=== PATIENT | female | born 1950 | race Caucasian/White ===

== ENCOUNTER 2017-09-20 06:48 | Day surgery (SDC) | payer MEDICARE, MEDICAID, SELFPAY ==
[2017-09-20 07:20] VITALS: BP 163/90; PULSE 76; RESP 12; TEMP 36.6; O2SAT 99; BMI 20.7
[2017-09-20] MEDS: PROPARACAINE 0.5% OPHTH SOL 2 DROPS EYE-OP (07:20)
--- NOTE | 2017-09-20 07:51 | SUR.OPER ---
Supine on eye stretcher, head on extension cradle secured with tape. Arms tucked at sides with blanket. Pillow under knees.
[2017-09-20] MEDS: TETRACAINE 0.5% OPHTH DROPS 15 ML 2 DROPS EYE-RIGHT (08:09)
[2017-09-20] MEDS: CHONDROIDTIN/SOD HYALURONATE 1.05 ML SYRINGE INTRAOCULA (08:09)
[2017-09-20] MEDS: MOXIFLOXACIN OPHTH DROPS 3 ML BOTTLE 2 DROPS INJ (08:09)
[2017-09-20] MEDS: TRIAMCINOLONE 50 MG/5 ML VIAL INJ (08:10)
[2017-09-20] MEDS: CATARACT EYE COMPOUND (10 DROPS/SYRINGE) 3 DROPS EYE-OP (08:13)
[2017-09-20] MEDS: BALANCED SALT IRRIG SOLN NO.2 500 ML, EPINEPHrine 1 MG IRR (08:15)
[2017-09-20] MEDS: LIDOCAINE JELLY 2% 5 ML 1 APPLIC TOP (08:16)
--- NOTE | 2017-09-20 08:18 | PM.PREOP ---
Pre-operative Note Interval Note Pre-op Check: History & Physical Reviewed by Physician
--- NOTE | 2017-09-20 08:19 | P.OP_ITS ---
Operative Date/Time/Diagnoses - Pre-op diagnosis: Cataract Right eye Post-op diagnosis: same Procedure & Clinicians Procedure: Cataract Surgery Same procedure as scheduled: Yes Surgeon: Cody Perez Anesthesia Type: MAC +/- and Sedation Operative Notes Procedure in detail: Patient brought to the operating suite. Tetracaine drops placed in the right eye. Patient was prepped and draped in sterile manner. Wire lid speculum was placed in the eye. Betadine drops were placed on the eye. This was irrigated. Lidocaine jelly was placed on the eye. A paracentesis port was created with a side-port blade. 0.1 mL 1% preservative free lidocaine was injected into the anterior chamber. The anterior chamber was deepened with viscoelastic. 2.6 mm keratome was used to create a temporal clear corneal incision. Cystotome and Utrata forceps were used to create continuous tear capsulorrhexis. Balanced salt solution was used to hydro dissect the nucleus. The phacoemulsification handpiece was inserted and the nucleus was removed using the stop and chop technique. The irrigation aspiration handpiece was inserted and the remaining cortex was removed. Anterior chamber was deepened with viscoelastic. An Dove ZCB00 intraocular lens with a power of 23.0 was injected into the capsular bag. Irrigation aspiration handpiece was inserted and the remaining viscoelastic was removed. Incision was hydrated with balanced salt solution and found to be leak free with pressure with Weck- Ayla sponges. 0.1 mL Vigamox injected anterior chamber. 0.3 mL Kenalog 10 mg was injected subconjunctivally. Lid speculum was removed. The patient left the operating room in excellent condition. Complications: none Condition: stable Disposition: same day surgery
[2017-09-20 08:33] VITALS: BP 129/77; PULSE 73; RESP 16; TEMP 36.9; O2SAT 98
--- NOTE | 2017-09-20 08:33 | SUR.PHASEII ---
D/C INSTRUCTIONS REVIEWED WITH VERBALIZED UNDERSTANDING, PT TOLERATING COFFEE.
== END 2017-09-20 08:52 | disposition home or self-care (01) ==
PROVIDERS: PCP Family Medicine; Visit Provider Ophthalmology
DX: H25.11 Age-related nuclear cataract, right eye (principal); I10 Essential (primary) hypertension; R56.9 Unspecified convulsions
CPT/HCPCS: J0171; J2250; J3010; J3301

== ENCOUNTER → 2018-02-04 08:45 | Outpatient (CLI) | payer MEDICARE, MEDICAID, SELFPAY ==
--- NOTE | 2018-02-04 | DI.MRI.S_ITS ---
PROCEDURE: MR THORACIC SPINE WO CON INDICATIONS: RIGHT SIDED THORACIC PAIN TECHNIQUE: Noncontrast sagittal T1 spine echo and T2 fast spin echo, sagittal STIR, axial T1 and T2 fast spin echo through the thoracic spine. COMPARISON: [facility], MR, T-SPINE WITHOUT CONTRAST, 04/05/2016, 10:34. [facility], CR, XR THORACIC SPINE 3 VIEWS, 01/31/2018, 7:41. [facility], CR, XR CERVICAL SPINE WITH FLEXION EXTENSION, 01/31/2018, 7:41. [facility], MR, T-SPINE WITHOUT CONTRAST, 02/23/2017, 8:28. FINDINGS: Image quality: Excellent. Alignment and Curvature: There is normal bony alignment. Bone Marrow: Marrow is of abnormal elevated overall signal on STIR imaging as has been previously the case. This accentuates visualization of the fatty marrow changes of adjacent degenerative disc disease through the middle and lower thirds of the thoracic spine. No acute vertebral body compression fractures. Spinal Cord: Visualized spinal cord is normal in size and signal. Paraspinous Soft Tissues: No paravertebral masses. Miscellaneous: On axial images, central canal and foramina appear widely patent at all scanned levels. IMPRESSION: No spinal or foraminal stenosis found. Diffuse increased cellularity throughout the vertebral body marrow space best appreciated on the STIR imaging pulse sequence. This can be seen in myelodysplastic syndromes and marrow neoplastic infiltrations. Fat signal along areas of degenerative disc disease previously present is accentuated by the adjacent cellularity through the marrow space best seen through the middle and lower thirds of the thoracic spine. Overall, no overweaver several prior thoracic spine examinations. Dictated by: Adan Raymond M.D. on 02/07/2018 at 8:10 Approved by: Adan Raymond M.D. on 02/07/2018 at 8:14
== END ==
PROVIDERS: PCP Family Medicine; Visit Provider Orthopaedic Surgery
DX: M54.9 Dorsalgia, unspecified (principal)
CPT/HCPCS: 72146

== ENCOUNTER 2018-02-09 11:10 | Emergency (ER) | payer MEDICARE, MEDICAID, SELFPAY ==
--- NOTE | 2018-02-09 11:13 | ED_ITS ---
HPI - Back Pain/Injury General Chief Complaint: Back Pain/Injury Stated Complaint: BACK PAIN Time Seen by Provider: 02/09/18 11:12 Source: patient Mode of arrival: ambulatory Limitations: no limitations History of Present Illness HPI Narrative: 67-year-old female here for evaluation of right sided midback pain. Patient states that has been going on for several months now. She EKG early takes anti-inflammatories. She has been evaluated by Orthopedics who stated that she needed to find a primary care doctor. She has not done that to this point. She does have the orthopedic no with her today that does state that the patient could follow up in 3 months. Patient also has a note today from a provider who ordered a thoracic spine MRI for her to see oncology. I did evaluate the results of this MRI which overall his unchanged from an MRI 1 year ago however does have some concerning lesions on it. I soon this is the reason that she has been referred to see oncology. She has an appoint with Oncology next Tuesday. Patient has no new symptoms today Related Data Home Medications Medication Instructions Recorded Confirmed phenytoin sodium extended See Label Instructions .ROUTE 05/20/17 02/09/18 [Dilantin Extended] .COMPLEX #0 atenolol 50 mg PO DAILY 08/30/17 02/09/18 acetaminophen [Tylenol] 650 mg PO Q4H PRN 02/09/18 02/09/18 aspirin 81 mg PO DAILY 02/09/18 02/09/18 Previous Rx's Medication Instructions Recorded meloxicam [Mobic] 15 mg PO DAILY #30 tab 02/09/18 Allergies Allergy/AdvReac Type Severity Reaction Status Date / Time erythromycin base Allergy Unknown Gastrointestinal Verified 02/09/18 11:25 [ERYTHROMYCIN BASE] Upset Review of Systems Constitutional Denies fever(s) Cardiovascular Denies chest pain and Denies dyspnea Respiratory Denies dyspnea Gastrointestinal Gastrointestinal: Denies abdominal pain, Denies nausea and Denies vomiting Genitourinary Denies dysuria Musculoskeletal Reports back pain, Denies myalgias, Denies arthralgias and Denies tingling Integumentary/Breasts Denies lesions and Denies rash Neurologic Denies radicular pain, Denies tingling and Denies paresthesias PFSH Medical History Chronic back pain (Acute) Surgical History No pertinent past surgical history (Acute) Social History household members: significant other Exam Initial Vital Signs Initial Vital Signs: Vital Signs Temperature 98.1 F 02/09/18 11:25 Pulse Rate 75 02/09/18 11:25 Respiratory Rate 15 02/09/18 11:25 Blood Pressure 111/67 02/09/18 11:25 Pulse Oximetry 100 02/09/18 11:25 Const General: cooperative, healthy appearing, comfortable, well developed, well groomed and No acute distress Orientation: alert and oriented x3 HENMT Head: normal to inspection and normocephalic Resp Effort & Inspection: normal respiratory effort Auscultation: clear to auscultation bilaterally Cardio Rate: regular rate Rhythm: regular rhythm GI Inspection: non-distended Palpation: soft and No tender Back/Spine/Pelvis Other: patient points to her right midback is the area where she is most tender. It is not tender to palpation. She is able to flex and extend and rotate without much difficulty. Skin Lesions: no lesions Rashes: no rashes Neuro General: alert, awake and oriented x3 Extrem General: normal to inspection and capillary refill normal Psych Appearance: grossly normal and well kempt Course Vital Signs - 8 hr 02/09/18 11:25 Temperature 98.1 F Pulse Rate 75 Respiratory Rate 15 Blood Pressure 111/67 Pulse Oximetry 100 MDM - Back Pain/Injury MDM Narrative Medical decision making narrative: Patient has had months of right midback pain. Had an MRI completed just recently which has no change management analyst the past year. She does have a follow-up with oncology next week. Has no other red flag symptoms concerning for cauda equina. I feel that further imaging today is not warranted. She was instructed to keep her scheduled medical appointments. I did instructed that she could call the Orthopedic Department back for a follow-up. I did inform her that she does need to make contact the primary care doctor for management of her symptoms. Will start her on Mobic. She was given return precautions. She expressed understanding and agreement with plan. Discharge Plan Departure Patient Disposition: Home Clinical Impression: Back pain Instructions: Back Pain (Alternative Therapy), Activity May Be Better then Rest for Low Back Pain Recovery, DI for Thoracic Back Pain, Exercise May Reduce Risk of Low Back Pain Activity Restrictions/Additional Instructions: stop taking all the anti-inflammatories and start taking the Mobic for which he were given a prescription for today. You can take Tylenol on top of this as needed. Keep your scheduled medical appointments especially the appointment with Your oncologist next Tuesday. You do need to make contact with a primary care doctor. You can call the area clinics for this. Prescriptions: New meloxicam [Mobic] 15 mg tablet 15 mg PO DAILY Qty: 30 RF: 0 No Action phenytoin sodium extended [Dilantin Extended] 100 MG capsule See Label Instructions .ROUTE .COMPLEX Qty: 0 RF: 0 atenolol 50 mg Tablet 50 mg PO DAILY RF: 0 acetaminophen [Tylenol] 325 mg Tablet 650 mg PO Q4H PRN (Reason: Pain (Scale Score 1-3)) RF: 0 aspirin 81 mg Tablet,Chewable 81 mg PO DAILY RF: 0
[2018-02-09 11:25] VITALS: BP 111/67; PULSE 75; RESP 15; TEMP 36.7; O2SAT 100; BMI 21.4
--- NOTE | 2018-02-09 11:49 | PC.NURSE ---
pt states, right flank pain for 2 months, seen dr millard at [place] couple of days ago, urinalysis was normal, spouse concern and brought her to er, because she is not getting better, admits using heat with relief, and patches. also takes advil,aspirin and tylenol.
--- NOTE | 2018-02-09 12:35 | PC.NURSE ---
with slurred speech, but alert and awake, cooperative with care, skin warm dry pink, hoping to be pain free after the visits today.
== END 2018-02-09 12:26 | disposition home or self-care (01) ==
PROVIDERS: Emergency Provider Emergency Medicine
DX: M54.9 Dorsalgia, unspecified (principal)
CPT/HCPCS: 99282

== ENCOUNTER 2018-02-17 17:08 | Emergency (ER) | payer MEDICARE, MEDICAID, SELFPAY ==
[2018-02-17 17:22] VITALS: BP 137/76; PULSE 82; RESP 15; TEMP 36.6; O2SAT 98; BMI 21.4
== END 2018-02-17 17:38 | disposition left against medical advice (07) ==
LOC: ED 17:14
DX: M54.9 Dorsalgia, unspecified (principal)
CPT/HCPCS: 99281; 99282

== ENCOUNTER 2018-02-22 06:51 | Emergency (ER) | payer MEDICARE, MEDICAID, SELFPAY ==
[2018-02-22 06:59] VITALS: BP 143/87; PULSE 77; RESP 16; TEMP 36.7; O2SAT 100; BMI 21.4
--- NOTE | 2018-02-22 07:06 | ED_ITS ---
HPI - Back Pain/Injury General Chief Complaint: Back Pain/Injury Stated Complaint: SEVERE BACK PAIN Time Seen by Provider: 02/22/18 07:05 Source: patient Mode of arrival: ambulatory Limitations: no limitations History of Present Illness HPI Narrative: Patient is a 67-year-old female who I have evaluated here in the emergency department at the end of last month for right-sided mid back pain. She also checked in here to the emergency department a couple days ago but left without being seen. During my last evaluation of her she had just had an MRI of her back which showed no spinal stenosis but does have findings that are concerning for myelodysplastic syndrome. Patient states that since that visit she has not established care with a primary care doctor. She states that she has followed up with her orthopedic surgeon who also sent her to see an oncologist which she has had 1 visit with up to this point. She states that after these visits she was started on 05/325 mg of oxycodone and was just recently increased to 10/325. She reports that these medicines were ordered by her orthopedic surgeon. She states that she has an appointment scheduled for later this month for a ?sonogram ?and also some other blood work. Unsure whether her orthopedic surgeon or her oncologist ordered these tests however she stated that the oncologist wanted to see the results of these tests before making any final diagnoses. She is here today because she talked with her orthopedic surgeon's office yesterday and informed her that she needed to come to the emergency department for increasing pain. Reports no new symptoms with her back pain. Related Data Home Medications Medication Instructions Recorded Confirmed phenytoin sodium extended See Label Instructions .ROUTE 05/20/17 02/09/18 [Dilantin Extended] .COMPLEX #0 atenolol 50 mg PO DAILY 08/30/17 02/09/18 acetaminophen [Tylenol] 650 mg PO Q4H PRN 02/09/18 02/09/18 aspirin 81 mg PO DAILY 02/09/18 02/09/18 Previous Rx's Medication Instructions Recorded meloxicam [Mobic] 15 mg PO DAILY #30 tab 02/09/18 Allergies Allergy/AdvReac Type Severity Reaction Status Date / Time erythromycin base Allergy Unknown Gastrointestinal Verified 02/22/18 07:01 [ERYTHROMYCIN BASE] Upset Review of Systems Constitutional Denies fever(s) Cardiovascular Denies chest pain and Denies dyspnea Respiratory Denies dyspnea Gastrointestinal Gastrointestinal: Denies abdominal pain Genitourinary Denies dysuria and Denies urinary incontinence Musculoskeletal Reports back pain Integumentary/Breasts Denies rash Hematologic/Lymphatic Denies easy bleeding and Denies easy bruising PFSH Medical History Chronic back pain (Acute) Surgical History No pertinent past surgical history (Acute) Social History household members: significant other Smoking Status: Never smoker Exam Initial Vital Signs Initial Vital Signs: Vital Signs Temperature 98.0 F 02/22/18 06:59 Pulse Rate 77 02/22/18 06:59 Respiratory Rate 16 02/22/18 06:59 Blood Pressure 143/87 H 02/22/18 06:59 Pulse Oximetry 100 02/22/18 06:59 Const General: cooperative, healthy appearing, comfortable, well developed, well groomed and No acute distress Orientation: alert, awake and oriented x3 HENMT Head: normal to inspection and normocephalic Resp Effort & Inspection: normal respiratory effort Auscultation: clear to auscultation bilaterally Cardio Rate: regular rate Rhythm: regular rhythm Back/Spine/Pelvis Back: back tenderness (Right) and CVA tenderness right Thoracic/Lumbar Spine: paraspinal tenderness (right), thoracic spinal tenderness and No lumbar spinal tenderness Skin Lesions: no lesions Rashes: no rashes Neuro General: alert, awake and oriented x3 Cognition: normal cognition Speech: speech normal Extrem General: normal to inspection Psych Appearance: grossly normal and well kempt Course Vital Signs - 8 hr 02/22/18 06:59 Temperature 98.0 F Pulse Rate 77 Respiratory Rate 16 Blood Pressure 143/87 H Pulse Oximetry 100 [facility] - Back Pain/Injury Medical Records Attestation: I reviewed the patient's medical records. [facility] Narrative Medical decision making narrative: Patient here with her chronic right-sided back pain that she has had for months. No new symptoms. She is under the care of Orthopedics and also Oncology. She has scheduled test in the next couple weeks and then a follow-up with her oncologist she is not currently undergoing any chemotherapy. She does have pain pills that were prescribed by her orthopedic surgeon. I feel that no new imaging is needed today. She has no new trauma. I informed the patient that it is important for her to make contact with the primary care doctor. I informed her that here in the emergency department we will treat acute pain but not chronic pain. I informed her that the medicine that she is currently on his what I am willing to give her out of the emergency department. I did give her a shot of Dilaudid here in the ER. I informed her that this would not last for ever or take her pain completely away. I told her that she needed 1 provider to prescribe her pain medications. I informed her that this provider could be her orthopedic surgeon, her oncologist, or her primary care doctor. Her was at bedside for these discussions. She was given the phone number for groups here in the local area for which she can call to establish primary care. She expressed understanding and agreement with plan. Discharge Plan Departure Patient Disposition: Home Clinical Impression: Thoracic back pain Instructions: Back Pain (Alternative Therapy), Activity May Be Better then Rest for Low Back Pain Recovery, Thoracic Back Pain, Exercise May Reduce Risk of Low Back Pain Activity Restrictions/Additional Instructions: The emergency department can treat acute pain but does not treat chronic pain. This needs to be done by 1 provider in the clinic setting. I recommend that you keep all of your scheduled medical appointments. I also recommend that you call either the [facility] at [phone], [facility] at [phone], [facility] at [phone], or [facility] at [phone] to establish primary care. Continue to take all of your medications as directed. Prescriptions: No Action phenytoin sodium extended [Dilantin Extended] 100 MG capsule See Label Instructions .ROUTE .COMPLEX Qty: 0 RF: 0 atenolol 50 mg Tablet 50 mg PO DAILY RF: 0 acetaminophen [Tylenol] 325 mg Tablet 650 mg PO Q4H PRN (Reason: Pain (Scale Score 1-3)) RF: 0 aspirin 81 mg Tablet,Chewable 81 mg PO DAILY RF: 0 meloxicam [Mobic] 15 mg tablet 15 mg PO DAILY Qty: 30 RF: 0
[2018-02-22] MEDS: HYDROMORPHONE 2 MG INJ 1 MG IM (07:47)
[2018-02-22 08:03] VITALS: BP 136/81; PULSE 71; RESP 16; O2SAT 100
== END 2018-02-22 08:24 | disposition home or self-care (01) ==
PROVIDERS: Emergency Provider Emergency Medicine
DX: M54.6 Pain in thoracic spine (principal)
CPT/HCPCS: 96372; 99282; 99283; J1170

== ENCOUNTER → 2018-03-02 08:36 | Outpatient (CLI) | payer MEDICARE, MEDICAID, SELFPAY | PROVIDERS: Visit Provider Internal Medicine Hematology & Oncology | DX: D50.0 Iron deficiency anemia secondary to blood loss (chronic) (principal); M54.5 Low back pain; G89.29 Other chronic pain; D69.6 Thrombocytopenia, unspecified | CPT/HCPCS: 82274 ==

== ENCOUNTER 2018-10-22 14:26 | Emergency (ER) | payer MEDICARE, MEDICAID, SELFPAY ==
[2018-10-22 14:30] VITALS: BP 158/73; PULSE 98; RESP 20; TEMP 36.8; O2SAT 97
--- NOTE | 2018-10-22 14:32 | DI.CT.S_ITS ---
PROCEDURE: CT HEAD/BRAIN WO CON INDICATIONS: confusion, doesnt feel right TECHNIQUE: Noncontrast 4.5 mm thick angled axial sections acquired from the foramen magnum to the vertex, with coronal and sagittal reformats. For radiation dose reduction, the following was used: automated exposure control, adjustment of mA and/or kV according to patient size. COMPARISON: [facility], CT, HEAD WITHOUT CONTRAST, 03/21/2017, 12:38. FINDINGS: Image quality: Diagnostic. CSF spaces: Basal cisterns are patent. No extra-axial fluid collections. Ventricles are mildly prominent with corresponding parenchymal volume loss. Brain: No midline shift. No intracranial masses or hemorrhage. Duque-white matter interface is normal. Skull and face: Calvarium and visualized facial bones are intact, without suspicious lesions. Sinuses: Visualized sinuses and mastoids are clear. IMPRESSION: 1. No acute intracranial hemorrhage. 2. Mild parenchymal volume loss. Dictated by: Jose Mccain M.D. on 10/22/2018 at 15:08 Approved by: Jose Mccain M.D. on 10/22/2018 at 15:09
--- NOTE | 2018-10-22 14:46 | PC.NURSE ---
Pt is resistive of interventions. Kept pulling arm away for IV start, refuses 2nd IV. Slurred speech noted.
[2018-10-22 14:58] LABS: Prothrombin Time 11.5 SECONDS (10.1-12.7)
[2018-10-22 14:59] LABS: Basophils Absolute Auto 0 /uL (0-100); Basophils Percent Auto 0.6 % (0-2); Eosinophils Absolute Auto 100 /uL (0-450); Eosinophils Percent Auto 1.3 % (2-4); Hematocrit 30.2 % (36-46); Hemoglobin 8.7 g/dL (12.0-16.0); Lymphocytes Absolute Auto 2100 /uL (1100-4500); Lymphocytes Percent Auto 36.9 % (25-40); Mean Corpuscular HGB Conc 28.8 % (30-36); Mean Corpuscular Hemoglobin 21.2 PG (26-34); Mean Corpuscular Volume 73.6 fL (80-100); Monocytes Absolute Auto 500 /uL (0-900); Monocytes Percent Auto 8.9 % (3-14); Neutrophils Absolute Auto 3000 /uL (1500-7000); Neutrophils Percent Auto 52.3 % (50-75); Platelet Count 160 X10^3/uL (150-400); Red Blood Cell Count 4.11 X10^6/uL (4.0-5.2); Red Cell Distribution Width 19.8 % (11.6-14.8); White Blood Cell Count 5.7 X10^3/uL (4.5-11.0)
[2018-10-22 15:00] LABS: Add Manual Diff / Slide Review SLIDE REVIEW; Ammonia (NH3) < 9.0 umol/L (9-30); Ethanol (ETOH) 64 mg/dL; PTT Partial Thromboplastin Tim 24 SECONDS (26.4-36.2)
[2018-10-22 15:14] LABS: Anisocytosis 1+; Hypochromasia 2+; Polychromasia 1+
--- NOTE | 2018-10-22 15:47 | ED.NEUROSD ---
HPI - Neuro Symptoms/Deficit General Chief Complaint: Neuro Symptoms/Deficit Stated Complaint: started feeling really strange Time Seen by Provider: 10/22/18 15:45 Source: patient and family () Mode of arrival: ambulatory Limitations: no limitations History of Present Illness HPI Narrative: This is a 68-year-old female goes to the emergency department for feeling really strange earlier. Patient denies any headache, no fevers, no vision changes. No difficulty with speech or movement. She and states she seemed kind of off balance. She denies any chest pain, no pressure, no shortness of breath, no nausea, no vomiting no other GI or urinary symptoms. No weakness or numbness in her extremities or difficulty with moving her extremities. Patient does drink alcohol daily 1/2 to 1 pt daily. She takes as well as phenytoin for seizures. 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 She still occasionally falls now. She is also complaining of some back pain which is chronic in nature. Patient is not on any blood thinners. Per she had returned from taking her son to the marijuana store and seemed worse but it has been going on for several weeks. She had had significant changes to her sensorium after her most recent subdural hematoma, he but she was slowly improving over time. On Anticoagulants: No Related Data Home Medications Medication Instructions Recorded Confirmed phenytoin sodium extended See Rx Instructions .ROUTE 05/20/17 02/09/18 [Dilantin Extended] .COMPLEX #0 atenolol 50 mg PO DAILY 08/30/17 02/09/18 acetaminophen [Tylenol] 650 mg PO Q4H PRN 02/09/18 02/09/18 aspirin 81 mg PO DAILY 02/09/18 02/09/18 Previous Rx's Medication Instructions Recorded meloxicam [Mobic] 15 mg PO DAILY #30 tab 02/09/18 meloxicam [Mobic] 7.5 mg PO DAILY PRN #10 tab 10/22/18 Allergies Allergy/AdvReac Type Severity Reaction Status Date / Time erythromycin base Allergy Unknown Gastrointestinal Verified 10/22/18 14:42 [ERYTHROMYCIN BASE] Upset Review of Systems Review of Systems ROS Unobtainable: All systems reviewed & are unremarkable except as noted in HPI and below Constitutional Denies chills, Denies fatigue, Denies fever(s), Reports frequent falls, Denies headache(s), Denies lethargy, Denies weakness and Reports other ([place] really strange) Eyes Denies blurry vision and Denies change in vision ENT Ears, Nose, Mouth, and Throat: Denies headache(s) and Denies other (Facial droop) Cardiovascular Denies chest pain, Denies diaphoresis, Denies syncope, Denies edema, Denies irregular heart rhythm, Denies lightheadedness, Denies palpitations, Denies dyspnea, Denies dyspnea on exertion and Denies orthopnea Respiratory Denies change in phlegm color, Denies chest congestion, Denies cough, Denies dyspnea and Denies dyspnea on exertion Gastrointestinal Gastrointestinal: Denies abdominal pain, Denies melena, Denies hematochezia, Denies change in bowel habits, Denies diarrhea, Denies nausea and Denies vomiting Genitourinary Denies hematuria, Denies urinary frequency, Denies dysuria, Denies flank pain, Denies urinary incontinence and Denies urinary urgency Musculoskeletal Denies abnormal gait, Reports back pain (Acute on chronic), Denies muscle weakness, Denies numbness and Denies radiating pain into limb Integumentary/Breasts Denies rash and Denies unusual bruising Neurologic Denies abnormal movements, Denies abnormal speech, Denies abnormal gait, Reports behavioral changes, Denies syncope, Reports frequent falls, Denies headache(s), Denies focal weakness, Denies numbness, Denies seizure-like activity, Denies paresthesias and Denies weakness Psychiatric Reports behavioral changes Endocrine Denies fatigue and Denies palpitations [facility] Medical History Chronic back pain (Acute) Surgical History No pertinent past surgical history (Acute) Social History household members: significant other Smoking Status: Never smoker Social History household members: significant other Smoking Status: Never smoker Exam Narrative Exam Narrative: GEN: well nourished, well appearing female, alert and oriented x 3, patient appears to be in no acute distress. HEENT: Atraumatic, pupils are equal round reactive to light, extraocular movements are intact, nares are clear, Throat is clear without any exudates, erythema, tonsillar enlargement or uvular deviation HEART: Regular rate and rhythm without murmur, clicks, rubs. Pulses are equal in upper and lower extremities LUNGS:Lungs clear to auscultation, no wheezes, rales, crackles, chest moves symmetrically ABD:bowel sounds normal, soft, non-tender, no guarding, rebound, rigidity, no masses noted, no hepatosplenomegaly :No CVA tenderness MSCL: Non-tender, no muscle atrophy, muscles strength 5/5 upper and lower extremities, full range of motion, normal gait NEURO:CN 2-12 intact, sensation normal, reflexes 2/4 upper and lower extremities. Initial Vital Signs Initial Vital Signs: Vital Signs Temperature 98.2 F 10/22/18 14:30 Pulse Rate 98 H 10/22/18 14:30 Respiratory Rate 20 10/22/18 14:30 Blood Pressure 158/73 H 10/22/18 14:30 Pulse Oximetry 97 10/22/18 14:30 Scores GCS [place] coma scale eye opening: Spontaneous [place] coma scale verbal response: Orientated [place] coma scale motor response: Obey commands Germán coma scale total score: 15 Course Orders Ordered: ED Orders 10/22/18 14:32 CT head/brain wo con Stat 10/22/18 14:33 EKG-12 Lead Stat 10/22/18 14:40 Ammonia (NH3) Stat Complete Blood Count AUTO DIFF Stat Comprehensive Metabolic Panel Stat Ethanol (ETOH) Stat Partial Thromboplastin Time Stat Phenytoin / Dilantin Stat Prothrombin Time INR Stat 10/22/18 18:15 Urine Culture Stat Urine Drug Screen, Rapid Stat Urine Microscopic Stat Discontinued Medications Sodium Chloride (Normal Saline 0.9%) 1,000 mls @ 150 mls/hr IV CONT AURORA Last Infusion: 10/22/18 18:22 Dose: 0 mls/hr Admin: 10/22/18 16:22 Dose: 150 mls/hr Ketorolac Tromethamine (Toradol) 15 mg IV NOW ONE Stop: 10/22/18 16:55 Last Admin: 10/22/18 16:57 Dose: 15 mg Vital Signs - 8 hr 10/22/18 14:30 10/22/18 16:15 10/22/18 17:00 Temperature 98.2 F Pulse Rate 98 H 77 78 Respiratory Rate 20 12 17 Blood Pressure 158/73 H Blood Pressure [Right Arm] 118/59 L 138/53 L Pulse Oximetry 97 10/22/18 18:28 Temperature Pulse Rate 81 Respiratory Rate 15 Blood Pressure 124/59 L Blood Pressure [Right Arm] Pulse Oximetry 99 MDM - Neuro Symptoms/Deficit Lab Data Attestation: I reviewed the patient's lab results. Result diagrams: 10/22/18 14:40 10/22/18 14:40 Lab Results 10/22/18 10/22/18 10/22/18 Range/Units 14:40 14:40 14:40 WBC 5.7 (4.5-11.0) X10^3/uL RBC 4.11 (4.0-5.2) X10^6/uL Hgb 8.7 L (12.0-16.0) g/dL Hct 30.2 L (36-46) % MCV 73.6 L (80-100) fL MCH 21.2 L (26-34) PG MCHC 28.8 L (30-36) % RDW 19.8 H (11.6-14.8) % Plt Count 160 (150-400) X10^3/uL Neut % (Auto) 52.3 (50-75) % Lymph % (Auto) 36.9 (25-40) % [place] % (Auto) 8.9 (3-14) % Eos % (Auto) 1.3 L (2-4) % Baso % (Auto) 0.6 (0-2) % Neut # (Auto) 3000 (6571-9036) /uL Lymph # (Auto) 2100 (0972-1649) /uL [place] # (Auto) 500 (0-900) /uL Eos # (Auto) 100 (0-450) /uL Baso # (Auto) 0 (0-100) /uL RBC Morphology See below Polychromasia 1+ H Hypochromasia 2+ H Anisocytosis 1+ H PT 11.5 (10.1-12.7) SECONDS INR 1.0 (0.9-1.3) APTT 24 L (26.4-36.2) SECONDS Sodium (137-145) mmol/L Potassium (3.4-5.1) mmol/L Chloride (98-107) mmol/L Carbon Dioxide (22-32) mmol/L BUN (7-17) mg/dL Creatinine (0.52-1.04) mg/dL Estimated GFR (>60) mL/min BUN/Creatinine Ratio (6-22) Glucose (80-110) mg/dL Calcium (8.4-10.2) mg/dL Total Bilirubin (0.2-1.3) mg/dL AST (14-36) IU/L ALT (9-52) IU/L Alkaline Phosphatase (38-126) U/L Ammonia < 9.0 L (9-30) umol/L Total Protein (6.3-8.2) g/dL Albumin (3.5-5.0) g/dL Globulin (1.7-4.1) g/dL Albumin/Globulin Ratio (1.0-2.8) Urine RBC (0-5/HPF) Urine WBC (0-5/HPF) Ur Squamous Epith Cells (0-5/HPF) Urine Bacteria (None) Ur Culture Indicated? Urine Opiates Screen (Negative) Ur Oxycodone Screen (Negative) Urine Methadone Screen (Negative) Ur Barbiturates Screen (Negative) Phenytoin (10-20) ug/mL U Tricyclic Antidepress (Negative) Ur Phencyclidine Scrn (Negative) Ur Amphetamines Screen (Negative) U Methamphetamines Scrn (Negative) Ur MDMA Scrn (Ecstasy) (Negative) U Benzodiazepines Scrn (Negative) Urine Cocaine Screen (Negative) U Marijuana (THC) Screen (Negative) Ethyl Alcohol mg/dL 10/22/18 10/22/18 10/22/18 Range/Units 14:40 14:40 14:40 WBC (4.5-11.0) X10^3/uL RBC (4.0-5.2) X10^6/uL Hgb (12.0-16.0) g/dL Hct (36-46) % MCV (80-100) fL MCH (26-34) PG MCHC (30-36) % RDW (11.6-14.8) % Plt Count (150-400) X10^3/uL Neut % (Auto) (50-75) % Lymph % (Auto) (25-40) % [place] % (Auto) (3-14) % Eos % (Auto) (2-4) % Baso % (Auto) (0-2) % Neut # (Auto) (4530-4838) /uL Lymph # (Auto) (2641-7075) /uL [place] # (Auto) (0-900) /uL Eos # (Auto) (0-450) /uL Baso # (Auto) (0-100) /uL RBC Morphology Polychromasia Hypochromasia Anisocytosis PT (10.1-12.7) SECONDS INR (0.9-1.3) APTT (26.4-36.2) SECONDS Sodium 142 (137-145) mmol/L Potassium 3.5 (3.4-5.1) mmol/L Chloride 108 H (98-107) mmol/L Carbon Dioxide 20 L (22-32) mmol/L BUN 15 (7-17) mg/dL Creatinine 0.50 L (0.52-1.04) mg/dL Estimated GFR > 60.0 (>60) mL/min BUN/Creatinine Ratio 30.0 H (6-22) Glucose 108 (80-110) mg/dL Calcium 9.2 (8.4-10.2) mg/dL Total Bilirubin 0.3 (0.2-1.3) mg/dL AST 72 H (14-36) IU/L ALT 39 (9-52) IU/L Alkaline Phosphatase 93 (38-126) U/L Ammonia (9-30) umol/L Total Protein 7.4 (6.3-8.2) g/dL Albumin 4.0 (3.5-5.0) g/dL Globulin 3.4 (1.7-4.1) g/dL Albumin/Globulin Ratio 1.2 (1.0-2.8) Urine RBC (0-5/HPF) Urine WBC (0-5/HPF) Ur Squamous Epith Cells (0-5/HPF) Urine Bacteria (None) Ur Culture Indicated? Urine Opiates Screen (Negative) Ur Oxycodone Screen (Negative) Urine Methadone Screen (Negative) Ur Barbiturates Screen (Negative) Phenytoin < 3.0 L (10-20) ug/mL U Tricyclic Antidepress (Negative) Ur Phencyclidine Scrn (Negative) Ur Amphetamines Screen (Negative) U Methamphetamines Scrn (Negative) Ur MDMA Scrn (Ecstasy) (Negative) U Benzodiazepines Scrn (Negative) Urine Cocaine Screen (Negative) U Marijuana (THC) Screen (Negative) Ethyl Alcohol 64 mg/dL 10/22/18 10/22/18 Range/Units 18:15 18:15 WBC (4.5-11.0) X10^3/uL RBC (4.0-5.2) X10^6/uL Hgb (12.0-16.0) g/dL Hct (36-46) % MCV (80-100) fL MCH (26-34) PG MCHC (30-36) % RDW (11.6-14.8) % Plt Count (150-400) X10^3/uL Neut % (Auto) (50-75) % Lymph % (Auto) (25-40) % [place] % (Auto) (3-14) % Eos % (Auto) (2-4) % Baso % (Auto) (0-2) % Neut # (Auto) (4915-8168) /uL Lymph # (Auto) (6781-3325) /uL [place] # (Auto) (0-900) /uL Eos # (Auto) (0-450) /uL Baso # (Auto) (0-100) /uL RBC Morphology Polychromasia Hypochromasia Anisocytosis PT (10.1-12.7) SECONDS INR (0.9-1.3) APTT (26.4-36.2) SECONDS Sodium (137-145) mmol/L Potassium (3.4-5.1) mmol/L Chloride (98-107) mmol/L Carbon Dioxide (22-32) mmol/L BUN (7-17) mg/dL Creatinine (0.52-1.04) mg/dL Estimated GFR (>60) mL/min BUN/Creatinine Ratio (6-22) Glucose (80-110) mg/dL Calcium (8.4-10.2) mg/dL Total Bilirubin (0.2-1.3) mg/dL AST (14-36) IU/L ALT (9-52) IU/L Alkaline Phosphatase (38-126) U/L Ammonia (9-30) umol/L Total Protein (6.3-8.2) g/dL Albumin (3.5-5.0) g/dL Globulin (1.7-4.1) g/dL Albumin/Globulin Ratio (1.0-2.8) Urine RBC None seen (0-5/HPF) Urine WBC 1-5/hpf (0-5/HPF) Ur Squamous Epith Cells 1-5 /hpf (0-5/HPF) Urine Bacteria Few (2-10) H (None) Ur Culture Indicated? Specimen cultured Urine Opiates Screen Negative (Negative) Ur Oxycodone Screen Negative (Negative) Urine Methadone Screen Negative (Negative) Ur Barbiturates Screen Negative (Negative) Phenytoin (10-20) ug/mL U Tricyclic Antidepress Negative (Negative) Ur Phencyclidine Scrn Negative (Negative) Ur Amphetamines Screen Negative (Negative) U Methamphetamines Scrn Negative (Negative) Ur MDMA Scrn (Ecstasy) Negative (Negative) U Benzodiazepines Scrn Negative (Negative) Urine Cocaine Screen Negative (Negative) U Marijuana (THC) Screen Positive H (Negative) Ethyl Alcohol mg/dL Point of Care Testing Glucose POC 108 Urine Dip Bedside Urine Glucose Negative Bedside Urine Bilirubin - Negative Bedside Urine Ketone - Negative Urine Specific [place] 1.025 Bedside Urine Occult Blood - Negative Bedside Urine pH 5.5 Bedside Urine Protein - Negative Bedside Urine Urobilinogen - Negative Bedside Urine Nitrite - Negative Bedside Urine Leukocytes - Negative Esterase Imaging Data CT scan - head: Radiologist's impression: [address] [address] [address] Scan Report Signed Patient: Flor Santos R#: [id number] : [id number] Age/Sex: 68 / FDate of Service: 10/22/18 Loc: ED Accession Number: [id number] Procedure: CT head/brain wo con Ordering Provider: Rubi Cerrato D.O. PROCEDURE: CT HEAD/BRAIN WO CON INDICATIONS: confusion, doesnt feel right TECHNIQUE: Noncontrast 4.5 mm thick angled axial sections acquired from the foramen magnum to the vertex, with coronal and sagittal reformats. For radiation dose reduction, the following was used: automated exposure control, adjustment of mA and/or kV according to patient size. COMPARISON: [facility], CT, HEAD WITHOUT CONTRAST, 03/21/2017, 12:38. FINDINGS: Image quality: Diagnostic. CSF spaces: Basal cisterns are patent. No extra-axial fluid collections. Ventricles are mildly prominent with corresponding parenchymal volume loss. Brain: No midline shift. No intracranial masses or hemorrhage. Duque-white matter interface is normal. Skull and face: Calvarium and visualized facial bones are intact, without suspicious lesions. Sinuses: Visualized sinuses and mastoids are clear. IMPRESSION: 1. No acute intracranial hemorrhage. 2. Mild parenchymal volume loss. Dictated by: Jose Mccain M.D. on 10/22/2018 at 15:08 Approved by: Jose Mccain M.D. on 10/22/2018 at 15:09 ECG Data Attestation: I personally reviewed and interpreted this ECG as follows: Interpretation: Sinus rhythm rate of 94 P are 169 QRS of [address] elevation or depression. Nonspecific T-wave change. MDM Narrative Medical decision making narrative: Patient's head CT, EKG and lab work did not show any acute changes. She is anemic but this appears stable. Patient is of [place] appears appropriate here. She does drink alcohol by her description stents Ali as well as her 's. Alcohol was 64 today this may have played a part but unclear. There is no signs stroke today, no other clear signs cause to her altered feeling today. She is complaining of some back pain but states is chronic. She has had an MRI in the past as well as possible referrals to Orthopedic surgery but has not followed up. She has also been referred to pain management but they would not treat her because she actively drink alcohol. Patient has some leukocyte esterase on her urine but she prefers to wait for urine culture which seems appropriate. She is ambulating normally in the department without any other issues. Her diet and phenytoin level is subtherapeutic but unclear if she takes these because of true seizures, withdrawal seizures or other reasons so deferred medication adjustment to her primary care Discharge Plan Departure Patient Disposition: Home Clinical Impression: Back pain Discharge Date/Time: 10/22/18 18:29 Interventions: ED Discharge Assessment Last Done: 10/22/18 18:28 Instructions: DI for Low Back Pain Activity Restrictions/Additional Instructions: Follow-up with your physician in the next 2-3 days. Call for an appointment for recheck. Also discuss that your phenytoin level is low and if you need to have her medications adjusted. Also included is a referral for orthopedic surgery. Take medication as prescribed, this medication can you sleepy do not drive, perform hazardous activities or make any major decisions while taking it. Your urine shows some leukocyte esterase, urine culture is pending and if positive you will be contacted to be started on antibiotics. Return to the ER for fevers greater than 100.4 F, new altered mental status, new weakness, new numbness, difficulty with movement, difficulty with speech, passing out, new chest pain, shortness of breath or other new or concerning symptoms. Prescriptions: New meloxicam [Mobic] 7.5 mg tablet 7.5 mg PO DAILY PRN (Reason: pain) Qty: 10 RF: 0 No Action phenytoin sodium extended [Dilantin Extended] 100 MG capsule See Rx Instructions .ROUTE .COMPLEX Qty: 0 RF: 0 atenolol 50 mg Tablet 50 mg PO DAILY RF: 0 acetaminophen [Tylenol] 325 mg Tablet 650 mg PO Q4H PRN (Reason: Pain (Scale Score 1-3)) RF: 0 aspirin 81 mg Tablet,Chewable 81 mg PO DAILY RF: 0 meloxicam [Mobic] 15 mg tablet 15 mg PO DAILY Qty: 30 RF: 0 Referrals: Cody Bobo MD [Physician] -
--- NOTE | 2018-10-22 15:53 | ED_ITS ---
HPI - Neuro Symptoms/Deficit General Chief Complaint: Neuro Symptoms/Deficit Stated Complaint: started feeling really strange Time Seen by Provider: 10/22/18 15:45 Source: patient and family () Mode of arrival: ambulatory Limitations: no limitations History of Present Illness HPI Narrative: This is a 68-year-old female goes to the emergency department for feeling really strange earlier. Patient denies any headache, no fevers, no vision changes. No difficulty with speech or movement. She and states she seemed kind of off balance. She denies any chest pain, no pressure, no shortness of breath, no nausea, no vomiting no other GI or urinary symptoms. No weakness or numbness in her extremities or difficulty with moving her extremities. Patient does drink alcohol daily 1/2 to 1 pt daily. She takes as well as phenytoin for seizures. 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 She still occasionally falls now. She is also complaining of some back pain which is chronic in nature. Patient is not on any blood thinners. Per she had returned from taking her son to the marijuana store and seemed worse but it has been going on for several weeks. She had had significant changes to her sensorium after her most recent subdural hematoma, he but she was slowly improving over time. On Anticoagulants: No Related Data Home Medications Medication Instructions Recorded Confirmed phenytoin sodium extended See Rx Instructions .ROUTE 05/20/17 02/09/18 [Dilantin Extended] .COMPLEX #0 atenolol 50 mg PO DAILY 08/30/17 02/09/18 acetaminophen [Tylenol] 650 mg PO Q4H PRN 02/09/18 02/09/18 aspirin 81 mg PO DAILY 02/09/18 02/09/18 Previous Rx's Medication Instructions Recorded meloxicam [Mobic] 15 mg PO DAILY #30 tab 02/09/18 meloxicam [Mobic] 7.5 mg PO DAILY PRN #10 tab 10/22/18 Allergies Allergy/AdvReac Type Severity Reaction Status Date / Time erythromycin base Allergy Unknown Gastrointestinal Verified 10/22/18 14:42 [ERYTHROMYCIN BASE] Upset Review of Systems Review of Systems ROS Unobtainable: All systems reviewed & are unremarkable except as noted in HPI and below Constitutional Denies chills, Denies fatigue, Denies fever(s), Reports frequent falls, Denies headache(s), Denies lethargy, Denies weakness and Reports other ([place] really strange) Eyes Denies blurry vision and Denies change in vision ENT Ears, Nose, Mouth, and Throat: Denies headache(s) and Denies other (Facial droop) Cardiovascular Denies chest pain, Denies diaphoresis, Denies syncope, Denies edema, Denies irregular heart rhythm, Denies lightheadedness, Denies palpitations, Denies dyspnea, Denies dyspnea on exertion and Denies orthopnea Respiratory Denies change in phlegm color, Denies chest congestion, Denies cough, Denies dyspnea and Denies dyspnea on exertion Gastrointestinal Gastrointestinal: Denies abdominal pain, Denies melena, Denies hematochezia, Denies change in bowel habits, Denies diarrhea, Denies nausea and Denies vomiting Genitourinary Denies hematuria, Denies urinary frequency, Denies dysuria, Denies flank pain, Denies urinary incontinence and Denies urinary urgency Musculoskeletal Denies abnormal gait, Reports back pain (Acute on chronic), Denies muscle weakness, Denies numbness and Denies radiating pain into limb Integumentary/Breasts Denies rash and Denies unusual bruising Neurologic Denies abnormal movements, Denies abnormal speech, Denies abnormal gait, Reports behavioral changes, Denies syncope, Reports frequent falls, Denies headache(s), Denies focal weakness, Denies numbness, Denies seizure-like activity, Denies paresthesias and Denies weakness Psychiatric Reports behavioral changes Endocrine Denies fatigue and Denies palpitations [facility] Medical History Chronic back pain (Acute) Surgical History No pertinent past surgical history (Acute) Social History household members: significant other Smoking Status: Never smoker Social History household members: significant other Smoking Status: Never smoker Exam Narrative Exam Narrative: GEN: well nourished, well appearing female, alert and oriented x 3, patient appears to be in no acute distress. HEENT: Atraumatic, pupils are equal round reactive to light, extraocular movements are intact, nares are clear, Throat is clear without any exudates, erythema, tonsillar enlargement or uvular deviation HEART: Regular rate and rhythm without murmur, clicks, rubs. Pulses are equal in upper and lower extremities LUNGS:Lungs clear to auscultation, no wheezes, rales, crackles, chest moves symmetrically ABD:bowel sounds normal, soft, non-tender, no guarding, rebound, rigidity, no masses noted, no hepatosplenomegaly :No CVA tenderness MSCL: Non-tender, no muscle atrophy, muscles strength 5/5 upper and lower extremities, full range of motion, normal gait NEURO:CN 2-12 intact, sensation normal, reflexes 2/4 upper and lower extremities. Initial Vital Signs Initial Vital Signs: Vital Signs Temperature 98.2 F 10/22/18 14:30 Pulse Rate 98 H 10/22/18 14:30 Respiratory Rate 20 10/22/18 14:30 Blood Pressure 158/73 H 10/22/18 14:30 Pulse Oximetry 97 10/22/18 14:30 Scores GCS Oxford coma scale eye opening: Spontaneous Germán coma scale verbal response: Orientated Oxford coma scale motor response: Obey commands Germán coma scale total score: 15 Course Orders Ordered: ED Orders 10/22/18 14:32 CT head/brain wo con Stat 10/22/18 14:33 EKG-12 Lead Stat 10/22/18 14:40 Ammonia (NH3) Stat Complete Blood Count AUTO DIFF Stat Comprehensive Metabolic Panel Stat Ethanol (ETOH) Stat Partial Thromboplastin Time Stat Phenytoin / Dilantin Stat Prothrombin Time INR Stat 10/22/18 18:15 Urine Culture Stat Urine Drug Screen, Rapid Stat Urine Microscopic Stat Discontinued Medications Sodium Chloride (Normal Saline 0.9%) 1,000 mls @ 150 mls/hr IV CONT AURORA Last Infusion: 10/22/18 18:22 Dose: 0 mls/hr Admin: 10/22/18 16:22 Dose: 150 mls/hr Ketorolac Tromethamine (Toradol) 15 mg IV NOW ONE Stop: 10/22/18 16:55 Last Admin: 10/22/18 16:57 Dose: 15 mg Vital Signs - 8 hr 10/22/18 14:30 10/22/18 16:15 10/22/18 17:00 Temperature 98.2 F Pulse Rate 98 H 77 78 Respiratory Rate 20 12 17 Blood Pressure 158/73 H Blood Pressure [Right Arm] 118/59 L 138/53 L Pulse Oximetry 97 10/22/18 18:28 Temperature Pulse Rate 81 Respiratory Rate 15 Blood Pressure 124/59 L Blood Pressure [Right Arm] Pulse Oximetry 99 MDM - Neuro Symptoms/Deficit Lab Data Attestation: I reviewed the patient's lab results. Result diagrams: 10/22/18 14:40 10/22/18 14:40 Lab Results 10/22/18 10/22/18 10/22/18 Range/Units 14:40 14:40 14:40 WBC 5.7 (4.5-11.0) X10^3/uL RBC 4.11 (4.0-5.2) X10^6/uL Hgb 8.7 L (12.0-16.0) g/dL Hct 30.2 L (36-46) % MCV 73.6 L (80-100) fL MCH 21.2 L (26-34) PG MCHC 28.8 L (30-36) % RDW 19.8 H (11.6-14.8) % Plt Count 160 (150-400) X10^3/uL Neut % (Auto) 52.3 (50-75) % Lymph % (Auto) 36.9 (25-40) % Gove % (Auto) 8.9 (3-14) % Eos % (Auto) 1.3 L (2-4) % Baso % (Auto) 0.6 (0-2) % Neut # (Auto) 3000 (4233-5144) /uL Lymph # (Auto) 2100 (0559-8246) /uL Gove # (Auto) 500 (0-900) /uL Eos # (Auto) 100 (0-450) /uL Baso # (Auto) 0 (0-100) /uL RBC Morphology See below Polychromasia 1+ H Hypochromasia 2+ H Anisocytosis 1+ H PT 11.5 (10.1-12.7) SECONDS INR 1.0 (0.9-1.3) APTT 24 L (26.4-36.2) SECONDS Sodium (137-145) mmol/L Potassium (3.4-5.1) mmol/L Chloride (98-107) mmol/L Carbon Dioxide (22-32) mmol/L BUN (7-17) mg/dL Creatinine (0.52-1.04) mg/dL Estimated GFR (>60) mL/min BUN/Creatinine Ratio (6-22) Glucose (80-110) mg/dL Calcium (8.4-10.2) mg/dL Total Bilirubin (0.2-1.3) mg/dL AST (14-36) IU/L ALT (9-52) IU/L Alkaline Phosphatase (38-126) U/L Ammonia < 9.0 L (9-30) umol/L Total Protein (6.3-8.2) g/dL Albumin (3.5-5.0) g/dL Globulin (1.7-4.1) g/dL Albumin/Globulin Ratio (1.0-2.8) Urine RBC (0-5/HPF) Urine WBC (0-5/HPF) Ur Squamous Epith Cells (0-5/HPF) Urine Bacteria (None) Ur Culture Indicated? Urine Opiates Screen (Negative) Ur Oxycodone Screen (Negative) Urine Methadone Screen (Negative) Ur Barbiturates Screen (Negative) Phenytoin (10-20) ug/mL U Tricyclic Antidepress (Negative) Ur Phencyclidine Scrn (Negative) Ur Amphetamines Screen (Negative) U Methamphetamines Scrn (Negative) Ur MDMA Scrn (Ecstasy) (Negative) U Benzodiazepines Scrn (Negative) Urine Cocaine Screen (Negative) U Marijuana (THC) Screen (Negative) Ethyl Alcohol mg/dL 10/22/18 10/22/18 10/22/18 Range/Units 14:40 14:40 14:40 WBC (4.5-11.0) X10^3/uL RBC (4.0-5.2) X10^6/uL Hgb (12.0-16.0) g/dL Hct (36-46) % MCV (80-100) fL MCH (26-34) PG MCHC (30-36) % RDW (11.6-14.8) % Plt Count (150-400) X10^3/uL Neut % (Auto) (50-75) % Lymph % (Auto) (25-40) % Gove % (Auto) (3-14) % Eos % (Auto) (2-4) % Baso % (Auto) (0-2) % Neut # (Auto) (1849-8993) /uL Lymph # (Auto) (5990-6050) /uL Gove # (Auto) (0-900) /uL Eos # (Auto) (0-450) /uL Baso # (Auto) (0-100) /uL RBC Morphology Polychromasia Hypochromasia Anisocytosis PT (10.1-12.7) SECONDS INR (0.9-1.3) APTT (26.4-36.2) SECONDS Sodium 142 (137-145) mmol/L Potassium 3.5 (3.4-5.1) mmol/L Chloride 108 H (98-107) mmol/L Carbon Dioxide 20 L (22-32) mmol/L BUN 15 (7-17) mg/dL Creatinine 0.50 L (0.52-1.04) mg/dL Estimated GFR > 60.0 (>60) mL/min BUN/Creatinine Ratio 30.0 H (6-22) Glucose 108 (80-110) mg/dL Calcium 9.2 (8.4-10.2) mg/dL Total Bilirubin 0.3 (0.2-1.3) mg/dL AST 72 H (14-36) IU/L ALT 39 (9-52) IU/L Alkaline Phosphatase 93 (38-126) U/L Ammonia (9-30) umol/L Total Protein 7.4 (6.3-8.2) g/dL Albumin 4.0 (3.5-5.0) g/dL Globulin 3.4 (1.7-4.1) g/dL Albumin/Globulin Ratio 1.2 (1.0-2.8) Urine RBC (0-5/HPF) Urine WBC (0-5/HPF) Ur Squamous Epith Cells (0-5/HPF) Urine Bacteria (None) Ur Culture Indicated? Urine Opiates Screen (Negative) Ur Oxycodone Screen (Negative) Urine Methadone Screen (Negative) Ur Barbiturates Screen (Negative) Phenytoin < 3.0 L (10-20) ug/mL U Tricyclic Antidepress (Negative) Ur Phencyclidine Scrn (Negative) Ur Amphetamines Screen (Negative) U Methamphetamines Scrn (Negative) Ur MDMA Scrn (Ecstasy) (Negative) U Benzodiazepines Scrn (Negative) Urine Cocaine Screen (Negative) U Marijuana (THC) Screen (Negative) Ethyl Alcohol 64 mg/dL 10/22/18 10/22/18 Range/Units 18:15 18:15 WBC (4.5-11.0) X10^3/uL RBC (4.0-5.2) X10^6/uL Hgb (12.0-16.0) g/dL Hct (36-46) % MCV (80-100) fL MCH (26-34) PG MCHC (30-36) % RDW (11.6-14.8) % Plt Count (150-400) X10^3/uL Neut % (Auto) (50-75) % Lymph % (Auto) (25-40) % Gove % (Auto) (3-14) % Eos % (Auto) (2-4) % Baso % (Auto) (0-2) % Neut # (Auto) (3914-6495) /uL Lymph # (Auto) (9147-3113) /uL Gove # (Auto) (0-900) /uL Eos # (Auto) (0-450) /uL Baso # (Auto) (0-100) /uL RBC Morphology Polychromasia Hypochromasia Anisocytosis PT (10.1-12.7) SECONDS INR (0.9-1.3) APTT (26.4-36.2) SECONDS Sodium (137-145) mmol/L Potassium (3.4-5.1) mmol/L Chloride (98-107) mmol/L Carbon Dioxide (22-32) mmol/L BUN (7-17) mg/dL Creatinine (0.52-1.04) mg/dL Estimated GFR (>60) mL/min BUN/Creatinine Ratio (6-22) Glucose (80-110) mg/dL Calcium (8.4-10.2) mg/dL Total Bilirubin (0.2-1.3) mg/dL AST (14-36) IU/L ALT (9-52) IU/L Alkaline Phosphatase (38-126) U/L Ammonia (9-30) umol/L Total Protein (6.3-8.2) g/dL Albumin (3.5-5.0) g/dL Globulin (1.7-4.1) g/dL Albumin/Globulin Ratio (1.0-2.8) Urine RBC None seen (0-5/HPF) Urine WBC 1-5/hpf (0-5/HPF) Ur Squamous Epith Cells 1-5 /hpf (0-5/HPF) Urine Bacteria Few (2-10) H (None) Ur Culture Indicated? Specimen cultured Urine Opiates Screen Negative (Negative) Ur Oxycodone Screen Negative (Negative) Urine Methadone Screen Negative (Negative) Ur Barbiturates Screen Negative (Negative) Phenytoin (10-20) ug/mL U Tricyclic Antidepress Negative (Negative) Ur Phencyclidine Scrn Negative (Negative) Ur Amphetamines Screen Negative (Negative) U Methamphetamines Scrn Negative (Negative) Ur MDMA Scrn (Ecstasy) Negative (Negative) U Benzodiazepines Scrn Negative (Negative) Urine Cocaine Screen Negative (Negative) U Marijuana (THC) Screen Positive H (Negative) Ethyl Alcohol mg/dL Point of Care Testing Glucose POC 108 Urine Dip Bedside Urine Glucose Negative Bedside Urine Bilirubin - Negative Bedside Urine Ketone - Negative Urine Specific [place] 1.025 Bedside Urine Occult Blood - Negative Bedside Urine pH 5.5 Bedside Urine Protein - Negative Bedside Urine Urobilinogen - Negative Bedside Urine Nitrite - Negative Bedside Urine Leukocytes - Negative Esterase Imaging Data CT scan - head: Radiologist's impression: [address] [address] [address] Scan Report Signed Patient: Flor Santos R#: [id number] : [id number] Age/Sex: 68 / FDate of Service: 10/22/18 Loc: ED Accession Number: [id number] Procedure: CT head/brain wo con Ordering Provider: Rubi Cerrato D.O. PROCEDURE: CT HEAD/BRAIN WO CON INDICATIONS: confusion, doesnt feel right TECHNIQUE: Noncontrast 4.5 mm thick angled axial sections acquired from the foramen magnum to the vertex, with coronal and sagittal reformats. For radiation dose reduction, the following was used: automated exposure control, adjustment of mA and/or kV according to patient size. COMPARISON: [facility], CT, HEAD WITHOUT CONTRAST, 03/21/2017, 12:38. FINDINGS: Image quality: Diagnostic. CSF spaces: Basal cisterns are patent. No extra-axial fluid collections. Ventricles are mildly prominent with corresponding parenchymal volume loss. Brain: No midline shift. No intracranial masses or hemorrhage. Duque-white matter interface is normal. Skull and face: Calvarium and visualized facial bones are intact, without suspicious lesions. Sinuses: Visualized sinuses and mastoids are clear. IMPRESSION: 1. No acute intracranial hemorrhage. 2. Mild parenchymal volume loss. Dictated by: Jose Mccain M.D. on 10/22/2018 at 15:08 Approved by: Jose Mccain M.D. on 10/22/2018 at 15:09 ECG Data Attestation: I personally reviewed and interpreted this ECG as follows: Interpretation: Sinus rhythm rate of 94 P are 169 QRS of [address] elevation or depression. Nonspecific T-wave change. MDM Narrative Medical decision making narrative: Patient's head CT, EKG and lab work did not show any acute changes. She is anemic but this appears stable. Patient is of Japanese appears appropriate here. She does drink alcohol by her description stents Ali as well as her 's. Alcohol was 64 today this may have played a part but unclear. There is no signs stroke today, no other clear signs cause to her altered feeling today. She is complaining of some back pain but states is chronic. She has had an MRI in the past as well as possible referrals to Orthopedic surgery but has not followed up. She has also been referred to pain management but they would not treat her because she actively drink alcohol. Patient has some leukocyte esterase on her urine but she prefers to wait for urine culture which seems appropriate. She is ambulating normally in the department without any other issues. Her diet and phenytoin level is subtherapeutic but unclear if she takes these because of true seizures, withdrawal seizures or other reasons so deferred medication adjustment to her primary care Discharge Plan Departure Patient Disposition: Home Clinical Impression: Back pain Discharge Date/Time: 10/22/18 18:29 Interventions: ED Discharge Assessment Last Done: 10/22/18 18:28 Instructions: DI for Low Back Pain Activity Restrictions/Additional Instructions: Follow-up with your physician in the next 2-3 days. Call for an appointment for recheck. Also discuss that your phenytoin level is low and if you need to have her medications adjusted. Also included is a referral for orthopedic surgery. Take medication as prescribed, this medication can you sleepy do not drive, perform hazardous activities or make any major decisions while taking it. Your urine shows some leukocyte esterase, urine culture is pending and if positive you will be contacted to be started on antibiotics. Return to the ER for fevers greater than 100.4 F, new altered mental status, new weakness, new numbness, difficulty with movement, difficulty with speech, passing out, new chest pain, shortness of breath or other new or concerning symptoms. Prescriptions: New meloxicam [Mobic] 7.5 mg tablet 7.5 mg PO DAILY PRN (Reason: pain) Qty: 10 RF: 0 No Action phenytoin sodium extended [Dilantin Extended] 100 MG capsule See Rx Instructions .ROUTE .COMPLEX Qty: 0 RF: 0 atenolol 50 mg Tablet 50 mg PO DAILY RF: 0 acetaminophen [Tylenol] 325 mg Tablet 650 mg PO Q4H PRN (Reason: Pain (Scale Score 1-3)) RF: 0 aspirin 81 mg Tablet,Chewable 81 mg PO DAILY RF: 0 meloxicam [Mobic] 15 mg tablet 15 mg PO DAILY Qty: 30 RF: 0 Referrals: Cody Bobo MD [Physician] -
[2018-10-22 16:15] VITALS: BP 118/59; PULSE 77; RESP 12
[2018-10-22] MEDS: SODIUM CHLORIDE 0.9% 1,000 ML 150 ML IV (16:22)
[2018-10-22 16:45] LABS: Alanine Aminotransferase 39 IU/L (9-52); Albumin Globulin Ratio 1.2 (1.0-2.8); Alkaline Phosphatase 93 U/L (38-126); Aspartate Aminotransferase 72 IU/L (14-36); Bilirubin Total 0.3 mg/dL (0.2-1.3); Blood Urea Nitrogen 15 mg/dL (7-17); Calcium 9.2 mg/dL (8.4-10.2); Carbon Dioxide 20 mmol/L (22-32); Chloride 108 mmol/L (98-107); Estimated Glomerular Filt Rate > 60.0 mL/min (>60); Globulin 3.4 g/dL (1.7-4.1); Glucose 108 mg/dL (80-110); HEMOLYSIS < 15 (0-50); Potassium 3.5 mmol/L (3.4-5.1); Sodium 142 mmol/L (137-145); Total Protein 7.4 g/dL (6.3-8.2)
[2018-10-22] MEDS: KETOROLAC 60 MG/2 ML VIAL 15 MG IV (16:57)
[2018-10-22 17:00] VITALS: BP 138/53; PULSE 78; RESP 17
[2018-10-22 17:03] LABS: Phenytoin / Dilantin < 3.0 ug/mL (10-20)
[2018-10-22 18:19] LABS: RBC Urine None Seen (0-5/HPF)
[2018-10-22 18:25] LABS: Urine Amphetamines Negative (Negative); Urine Cocaine Negative (Negative); Urine Methamphetamines Negative (Negative); Urine Morphine/Opi cutoff 2000 Negative (Negative); Urine Tetrahydrocannabinol Positive (Negative)
[2018-10-22 18:26] LABS: Urine Barbiturates Negative (Negative); Urine Benzodiazepines Negative (Negative); Urine MDMA Negative (Negative); Urine Methadone Negative (Negative); Urine Oxycodone Negative (Negative); Urine Phencyclidine Negative (Negative); Urine Tricyclic Antidepressant Negative (Negative)
[2018-10-22 18:28] VITALS: BP 124/59; PULSE 81; RESP 15; O2SAT 99
[2018-10-22 18:30] LABS: Bacteria Urine Few (2-10); Culture Indicated Urine Specimen Cultured; Squamous Epithelial Cell Urine 1-5 /HPF (0-5/HPF); WBC Urine 1-5/HPF (0-5/HPF)
== END 2018-10-22 18:29 | disposition home or self-care (01) ==
PROVIDERS: Emergency Provider Emergency Medicine
DX: M54.9 Dorsalgia, unspecified (principal); R41.0 Disorientation, unspecified
CPT/HCPCS: 36591; 70450; 80053; 80185; 80305; 80320; 81003; 81015; 82140; 82962; 85025; 85610; 85730; 87086; 93005; 96361; 96374; 99283; 99285; J1885

== ENCOUNTER 2018-10-25 16:59 | Emergency (ER) | payer MEDICARE, MEDICAID, SELFPAY ==
[2018-10-25 17:10] VITALS: BP 152/74; PULSE 93; RESP 22; TEMP 37; O2SAT 99; BMI 22.7
--- NOTE | 2018-10-25 19:09 | PC.NURSE ---
Full range of motion, ambulatory w/o difficulty, CSM all wnl. Pt laying in bed, appears comfortable.
[2018-10-25] MEDS: TRAMADOL 50 MG TABLET PO (20:16)
[2018-10-25 20:57] VITALS: BP 142/75; PULSE 79; O2SAT 79
--- NOTE | 2018-10-25 21:13 | ED.BACK ---
HPI - Back Pain/Injury <SUSIE Allen - Last Filed: 10/25/18 21:18> General Chief Complaint: Back Pain/Injury Stated Complaint: back pain Time Seen by Provider: 10/25/18 19:30 Source: patient Mode of arrival: ambulatory Limitations: no limitations History of Present Illness HPI Narrative: The patient is a 68-year-old female well known to this emergency department who presents with a chief complaint of back pain. She states she has chronic back pain, with follow-up scheduled with Orthopedics on Tuesday., she is a nonsmoker with history of alcoholism. This facility on 10/22. She states that she used all of her pain medications for her back pain that she was given on 10/22. She took all of her Mobic. She denies any incontinence of bowel incontinence of bladder numbness or tingling. She denies any weakness. She states that her thoracic and lower back pain has been going on for years. She denies any radiation. Related Data Home Medications Medication Instructions Recorded Confirmed phenytoin sodium extended See Rx Instructions .ROUTE 05/20/17 02/09/18 [Dilantin Extended] .COMPLEX #0 atenolol 50 mg PO DAILY 08/30/17 02/09/18 acetaminophen [Tylenol] 650 mg PO Q4H PRN 02/09/18 02/09/18 aspirin 81 mg PO DAILY 02/09/18 02/09/18 Previous Rx's Medication Instructions Recorded meloxicam [Mobic] 15 mg PO DAILY #30 tab 02/09/18 meloxicam [Mobic] 7.5 mg PO DAILY PRN #10 tab 10/22/18 diclofenac sodium [Voltaren] 2 gram TOP QID PRN #100 gram 10/25/18 ketorolac 10 mg PO TID PRN #10 tab 10/25/18 Allergies Allergy/AdvReac Type Severity Reaction Status Date / Time erythromycin base Allergy Unknown Gastrointestinal Verified 10/22/18 14:42 [ERYTHROMYCIN BASE] Upset Review of Systems <SUSIE Allen - Last Filed: 10/25/18 21:18> Review of Systems GENERAL: Denies chills, fatigue, malaise, fever, sweats. HEENT: Denies sinus pain, ear pain, sore throat, difficulty swallowing, dizziness. RESPIRATORY: Denies dyspnea, cough, wheezing, hemoptysis, sputum. CARDIOVASCULAR: Denies chest pain, palpitations, orthopnea, edema, GASTROINTESTINAL: Denies nausea, vomiting, abdominal pain, diarrhea, constipation, melena. : Denies dysuria, frequency, incontinence, hematuria, urinary retention. MUSCULOSKELETAL: See HPI SKIN: Denies rash, skin lesions, or other NEUROLOGIC: Denies weakness, headache, numbness, change in speech, confusion, seizures, incoordination. PSYCHIATRIC: No concerning psychosocial issues. 12 point review of systems is negative except for those stated above PFSH <SUSIE Allen - Last Filed: 10/25/18 21:18> Medical History Chronic back pain (Acute) Surgical History No pertinent past surgical history (Acute) Social History household members: significant other Smoking Status: Never smoker Social History household members: significant other Smoking Status: Never smoker Exam <SUSIE Allen - Last Filed: 10/25/18 21:18> Narrative Exam Narrative: GENERAL: This is a well-nourished, well-developed patient, no acute distress HEAD: Atraumatic. Normocephalic. No temporal or scalp tenderness. EYES: Pupils equal round and reactive. Extraocular motions intact. No scleral icterus. No injection or drainage. ENT: Nose without bleeding, purulent drainage or septal hematoma. Throat without erythema, tonsillar hypertrophy or exudate. Uvula midline. Airway patent. NECK: Trachea midline. No JVD or lymphadenopathy. Supple, nontender, no meningeal signs. CARDIOVASCULAR: Regular rate and rhythm without murmurs, gallops, or rubs. RESPIRATORY: Clear to auscultation. Breath sounds equal bilaterally. No wheezes, rales, or rhonchi. No cough. No increased respiratory effort. No accessory muscle use. GASTROINTESTINAL: Abdomen soft, non-tender, nondistended. No hepato-splenomegaly, or palpable masses. No guarding. EXTREMITIES: No clubbing, cyanosis, or edema. No joint tenderness, effusion, or edema noted. Strength is equal upper and lower extremities bilaterally. BACK: Nontender without deformity or crepitance. No flank tenderness. No pain to C-spine or T-spine palpation. Pain to L-spine palpation, bilateral paraspinal muscle palpation L-spine. NEURO: AOx3. No gross cranial nerve deficit. Stable gait. SKIN: No rash or erythema. No rash erythema ecchymosis noted on back. Initial Vital Signs Initial Vital Signs: Vital Signs Temperature 98.6 F 10/25/18 17:10 Pulse Rate 93 H 10/25/18 17:10 Respiratory Rate 22 10/25/18 17:10 Blood Pressure 152/74 H 10/25/18 17:10 Pulse Oximetry 99 10/25/18 17:10 <Yared Momin DO - Last Filed: 10/26/18 00:18> Initial Vital Signs Initial Vital Signs: Vital Signs Temperature 98.6 F 10/25/18 17:10 Pulse Rate 93 H 10/25/18 17:10 Respiratory Rate 22 10/25/18 17:10 Blood Pressure 152/74 H 10/25/18 17:10 Pulse Oximetry 99 10/25/18 17:10 Course <SUSIE Allen - Last Filed: 10/25/18 21:18> Orders Ordered: Discontinued Medications Tramadol HCl (Ultram) 50 mg PO NOW ONE Stop: 10/25/18 20:10 Last Admin: 10/25/18 20:16 Dose: 50 mg Vital Signs - 8 hr 10/25/18 17:10 10/25/18 20:57 Temperature 98.6 F Pulse Rate 93 H 79 Respiratory Rate 22 Blood Pressure 152/74 H Blood Pressure [Right Arm] 142/75 H Pulse Oximetry 99 79 L <DO Danya Siddiqui Last Filed: 10/26/18 00:18> Orders Ordered: Discontinued Medications Tramadol HCl (Ultram) 50 mg PO NOW ONE Stop: 10/25/18 20:10 Last Admin: 10/25/18 20:16 Dose: 50 mg Vital Signs - 8 hr 10/25/18 17:10 10/25/18 20:57 Temperature 98.6 F Pulse Rate 93 H 79 Respiratory Rate 22 Blood Pressure 152/74 H Blood Pressure [Right Arm] 142/75 H Pulse Oximetry 99 79 L [facility] - Back Pain/Injury <Rubi Cristina, VET[employer]IN[employer] MEDICAL OFFICER-BC - Last Filed: 10/25/18 21:18> [facility] Narrative Medical decision making narrative: The patient is a 68-year-old female who presents with a chief complaint of back pain. She has a history of alcoholism. She adamantly declined any imaging in the department today. She does not have any red flags including fever, incontinence of bowel or incontinence of bladder or saddle anesthesia. I offered her multiple modalities of pain medication in the emergency department ranging from Voltaren gel, to lidocaine patches, to Toradol injections. At times she cried and stated that I was offering her anything for her pain, but I reminded her that I have offered her several modalities. She then stated she did not want any prescriptions. Then she stated she did want prescriptions. I did agree to give her single dose of tramadol. However given that the emergency department policy is to use opiates to control chronic pain from our department, I did give her prescription of Toradol as well as Voltaren. I discussed at length that she should not take Toradol with any other NSAIDs shows his Mobic, ibuprofen etc. I discussed coming back to the ER for signs of neurological injury including incontinence. Encouraged her to follow up with her PCP as well as Orthopedics as discussed. Discharge Plan Departure Patient Disposition: Home Clinical Impression: Back pain Qualifiers: Back pain location: low back pain Chronicity: chronic Back pain laterality: bilateral Sciatica presence: without sciatica Qualified Code(s): M54.5 - Low back pain Discharge Date/Time: 10/25/18 20:55 Interventions: ED Discharge Assessment Last Done: 10/25/18 20:55 Instructions: DI for Low Back Pain Activity Restrictions/Additional Instructions: Please follow up with your PCP as well as Orthopedics as discussed. I suggest use of topical medications as needed and able. I have given you a prescription of Toradol. Do not combine this with any other NSAIDs such as Aleve, Mobic or ibuprofen. This can result in kidney damage as well as GI bleeding. Please come back to the ER for any acute concerns such as incontinence of bowel incontinence of bladder or numbness. Prescriptions: New ketorolac 10 mg tablet 10 mg PO TID PRN (Reason: pain) Qty: 10 RF: 0 diclofenac sodium [Voltaren] 1 % gel 2 gram TOP QID PRN (Reason: pain ) Qty: 100 RF: 0 No Action phenytoin sodium extended [Dilantin Extended] 100 MG capsule See Rx Instructions .ROUTE .COMPLEX Qty: 0 RF: 0 atenolol 50 mg Tablet 50 mg PO DAILY RF: 0 acetaminophen [Tylenol] 325 mg Tablet 650 mg PO Q4H PRN (Reason: Pain (Scale Score 1-3)) RF: 0 aspirin 81 mg Tablet,Chewable 81 mg PO DAILY RF: 0 meloxicam [Mobic] 15 mg tablet 15 mg PO DAILY Qty: 30 RF: 0 meloxicam [Mobic] 7.5 mg tablet 7.5 mg PO DAILY PRN (Reason: pain) Qty: 10 RF: 0 <Yared Momin DO - Last Filed: 10/26/18 00:18> [facility]ending Mehdi Attestation: I was available for consultation during this patient's emergency department encounter
== END 2018-10-25 20:55 | disposition home or self-care (01) ==
PROVIDERS: Emergency Provider Nurse Practitioner Family
DX: M54.5 Low back pain (principal)
CPT/HCPCS: 99282; 99283

== ENCOUNTER 2018-10-30 21:39 | Emergency (ER) | payer MEDICARE, MEDICAID, SELFPAY ==
[2018-10-30 21:43] VITALS: BP 125/66; PULSE 79; RESP 16; TEMP 36.6; O2SAT 100; BMI 20.7
--- NOTE | 2018-10-30 22:04 | ED.BACK ---
HPI - Back Pain/Injury General Chief Complaint: Back Pain/Injury Stated Complaint: Back Pain Time Seen by Provider: 10/30/18 21:58 Source: patient and old records reviewed Mode of arrival: ambulatory Limitations: no limitations History of Present Illness HPI Narrative: Patient is a 68-year-old female presenting with acute on chronic back pain. He has actually been to the emergency department this month for the same. She was given meloxicam and ketorolac. She says that she has seen an orthopedic physician who has scheduled her for an MRI but she does not know when that is yet. Is waiting for insurance approval. Tonight she is having worsening spasms. At some point it appears that she did get a prescription of tramadol 30 tablets however she says she did fill it does not remember. She denies any loss of urine no weakness in her legs no numbness or tingling. MD Complaint: back pain Onset (ago): year(s) Duration: constant Location: thoracic spine Severity: severe Quality: sharp Radiation: none Relieving factors: none Exacerbating factors: movement Treatments prior to arrival: NSAIDS and acetaminophen Related Data Home Medications Medication Instructions Recorded Confirmed phenytoin sodium extended See Rx Instructions .ROUTE 05/20/17 02/09/18 [Dilantin Extended] .COMPLEX #0 atenolol 50 mg PO DAILY 08/30/17 02/09/18 acetaminophen [Tylenol] 650 mg PO Q4H PRN 02/09/18 02/09/18 aspirin 81 mg PO DAILY 02/09/18 02/09/18 Previous Rx's Medication Instructions Recorded meloxicam [Mobic] 15 mg PO DAILY #30 tab 02/09/18 meloxicam [Mobic] 7.5 mg PO DAILY PRN #10 tab 10/22/18 diclofenac sodium [Voltaren] 2 gram TOP QID PRN #100 gram 10/25/18 ketorolac 10 mg PO TID PRN #10 tab 10/25/18 meloxicam [Mobic] 7.5 mg PO DAILY PRN #20 tab 10/30/18 Allergies Allergy/AdvReac Type Severity Reaction Status Date / Time erythromycin base Allergy Unknown Gastrointestinal Verified 10/22/18 14:42 [ERYTHROMYCIN BASE] Upset Review of Systems Review of Systems ROS Unobtainable: All systems reviewed & are unremarkable except as noted in HPI and below Constitutional Denies chills, Denies fever(s), Denies lethargy and Denies weakness Eyes Denies change in vision, Denies eye discharge, Denies irritation and Denies loss of vision ENT Ears, Nose, Mouth, and Throat: Denies change in voice, Denies neck pain and Denies sore throat Cardiovascular Denies chest pain, Denies irregular heart rhythm, Denies lightheadedness, Denies palpitations, Denies dyspnea, Denies dyspnea on exertion and Denies orthopnea Respiratory Denies cough, Denies dyspnea, Denies dyspnea on exertion and Denies wheezing Gastrointestinal Gastrointestinal: Denies abdominal pain, Denies change in bowel habits, Denies diarrhea, Denies nausea and Denies vomiting Genitourinary Denies hematuria, Denies flank pain, Denies urinary incontinence and Denies urinary urgency Musculoskeletal Reports as per HPI, Reports back pain and Denies neck pain Integumentary/Breasts Denies pruritus, Denies erythema, Denies rash and Denies wounds Neurologic Denies loss of vision and Denies weakness Endocrine Denies palpitations Allergic/Immunologic Denies wheezing [facility] Medical History Chronic back pain (Acute) Surgical History No pertinent past surgical history (Acute) Social History household members: significant other Smoking Status: Never smoker Social History household members: significant other Smoking Status: Never smoker Exam Initial Vital Signs Initial Vital Signs: Vital Signs Temperature 97.9 F 10/30/18 21:43 Pulse Rate 79 10/30/18 21:43 Respiratory Rate 16 10/30/18 21:43 Blood Pressure 125/66 10/30/18 21:43 Pulse Oximetry 100 10/30/18 21:43 GENERAL: Patient appears in pain having spasm HEENT: Head atraumatic,EOMI, pupils reactive, CARDIOVASCULAR: Regular rate and rhythm without murmurs, rubs or gallops. RESPIRATORY: Breath sounds equal bilaterally, no wheezes rales or rhonchi. ABDOMEN: Soft, nontender. Normoactive bowel sounds all 4 quadrants. No guarding or rebound. BACK: No midline or vertebral tenderness. Complaining more pain on the right thoracic side. It is an obvious spasm. EXTREMITIES: Normal range of motion, no clubbing or edema. Neurovascularly intact NEUROLOGICAL: Alert and oriented x4.Normal gait and speech. Cranial nerves II through XII grossly intact. SKIN: Warm, dry, no laceration, no petechiae, no rashes or lesions. Course Orders Ordered: Discontinued Medications Hydromorphone HCl (Dilaudid) 1 mg IM NOW ONE Stop: 10/30/18 22:13 Last Admin: 10/30/18 22:21 Dose: 1 mg Vital Signs - 8 hr 10/30/18 21:43 10/30/18 23:09 Temperature 97.9 F Pulse Rate 79 73 Respiratory Rate 16 18 Blood Pressure 125/66 136/79 Pulse Oximetry 100 96 MDM - Back Pain/Injury MDM Narrative Medical decision making narrative: Unclear patient actually had tramadol 30 tablets filled on October 27 or if that is just in the JUN, it was not perscribed from previous ED visits. She has been given NSAIDs in the past. She all 1 shot of Dilaudid in the ED to help with her pain. She has outpatient follow-up with Orthopedics an MRI soon to be scheduled. At this time no indication for any imaging. Pain is better after Dilaudid. Discharge Plan Departure Patient Disposition: Home Clinical Impression: Acute exacerbation of chronic low back pain Discharge Date/Time: 10/30/18 23:12 Interventions: ED Discharge Assessment Last Done: 10/30/18 23:09 Instructions: DI for Low Back Pain Activity Restrictions/Additional Instructions: *You have been diagnosed with acute on chronic back pain *What to do: At this time follow up with Orthopedics. No further pain medications will be prescribed from the emergency department. *Continue to take medications as directed Mobic 7.5 mg once daily do not combine with other NSAID such as ketorolac, ibuprofen, Advil, Aleve, naproxen etc *Follow up with your primary care provider in 2-3 days *Return to ER if you should have weakness in lower extremities loss of urine, persistent fever or any new, worsening or concerning symptoms Prescriptions: New meloxicam [Mobic] 7.5 mg tablet 7.5 mg PO DAILY PRN (Reason: pain, moderate) Qty: 20 RF: 0 No Action phenytoin sodium extended [Dilantin Extended] 100 MG capsule See Rx Instructions .ROUTE .COMPLEX Qty: 0 RF: 0 atenolol 50 mg Tablet 50 mg PO DAILY RF: 0 acetaminophen [Tylenol] 325 mg Tablet 650 mg PO Q4H PRN (Reason: Pain (Scale Score 1-3)) RF: 0 aspirin 81 mg Tablet,Chewable 81 mg PO DAILY RF: 0 meloxicam [Mobic] 15 mg tablet 15 mg PO DAILY Qty: 30 RF: 0 meloxicam [Mobic] 7.5 mg tablet 7.5 mg PO DAILY PRN (Reason: pain) Qty: 10 RF: 0 ketorolac 10 mg tablet 10 mg PO TID PRN (Reason: pain) Qty: 10 RF: 0 diclofenac sodium [Voltaren] 1 % gel 2 gram TOP QID PRN (Reason: pain ) Qty: 100 RF: 0
[2018-10-30] MEDS: HYDROMORPHONE 1 MG INJ IM (22:21)
[2018-10-30 23:09] VITALS: BP 136/79; PULSE 73; RESP 18; O2SAT 96
== END 2018-10-30 23:12 | disposition home or self-care (01) ==
PROVIDERS: Emergency Provider Emergency Medicine
DX: M54.2 Cervicalgia (principal)
CPT/HCPCS: 96372; 99282; 99283; J1170

== ENCOUNTER 2018-11-08 18:20 | Emergency (ER) | payer MEDICARE, MEDICAID, SELFPAY ==
[2018-11-08 18:35] VITALS: BP 133/70; PULSE 79; RESP 20; TEMP 36.7; O2SAT 99
--- NOTE | 2018-11-08 19:57 | ED.BACK ---
HPI - Back Pain/Injury General Chief Complaint: Back Pain/Injury Stated Complaint: back pain x6 months Time Seen by Provider: 11/08/18 18:41 Source: patient Mode of arrival: ambulatory Limitations: no limitations History of Present Illness HPI Narrative: 68-year-old female nonsmoker with extensive history of chronic back pain and multiple visits for the same presents with back pain which is flaring up in the absence of any overuse or injury. She has no fever or chills and denies any trauma. She denies any trouble controlling bowel or bladder. She denies any numbness, tingling or weakness. Her pain is worse with motion and improves with rest. She had an MRI just yesterday and has an appointment upcoming with Orthopedics. She ambulates without tremendous difficulty though obviously is in pain. She denies the use of blood thinners or any history of IV drug abuse MD Complaint: back pain Onset (ago): month(s) Duration: constant Similar Symptoms Previously: Yes Location: lumbar spine Severity: severe Quality: burning Radiation: none Relieving factors: immobilization Exacerbating factors: movement Associated symptoms: denies other symptoms Treatments prior to arrival: cold therapy and heat therapy Related Data Home Medications Medication Instructions Recorded Confirmed phenytoin sodium extended See Rx Instructions .ROUTE 05/20/17 02/09/18 [Dilantin Extended] .COMPLEX #0 atenolol 50 mg PO DAILY 08/30/17 02/09/18 acetaminophen [Tylenol] 650 mg PO Q4H PRN 02/09/18 02/09/18 aspirin 81 mg PO DAILY 02/09/18 02/09/18 Previous Rx's Medication Instructions Recorded meloxicam [Mobic] 15 mg PO DAILY #30 tab 02/09/18 meloxicam [Mobic] 7.5 mg PO DAILY PRN #10 tab 10/22/18 diclofenac sodium [Voltaren] 2 gram TOP QID PRN #100 gram 10/25/18 ketorolac 10 mg PO TID PRN #10 tab 10/25/18 meloxicam [Mobic] 7.5 mg PO DAILY PRN #20 tab 10/30/18 ibuprofen 600 mg PO TID-QID PRN #20 tab 11/08/18 tramadol [Ultram] 50 mg PO Q8H PRN #10 tab 11/08/18 Allergies Allergy/AdvReac Type Severity Reaction Status Date / Time erythromycin base Allergy Unknown Gastrointestinal Verified 10/22/18 14:42 [ERYTHROMYCIN BASE] Upset Review of Systems Constitutional Denies chills, Denies fever(s), Denies lethargy and Denies weakness Eyes Denies change in vision, Denies eye discharge, Denies irritation and Denies loss of vision ENT Ears, Nose, Mouth, and Throat: Denies change in voice, Denies neck pain and Denies sore throat Cardiovascular Denies chest pain, Denies irregular heart rhythm, Denies lightheadedness, Denies palpitations, Denies dyspnea, Denies dyspnea on exertion and Denies orthopnea Respiratory Denies cough, Denies dyspnea, Denies dyspnea on exertion and Denies wheezing Gastrointestinal Gastrointestinal: Denies abdominal pain, Denies change in bowel habits, Denies diarrhea, Denies nausea and Denies vomiting Genitourinary Denies hematuria, Denies flank pain, Denies urinary incontinence and Denies urinary urgency Musculoskeletal Reports back pain and Denies neck pain Integumentary/Breasts Denies pruritus, Denies erythema, Denies rash and Denies wounds Neurologic Denies confusion, Denies loss of vision and Denies weakness Psychiatric Denies anxiety, Denies confusion, Denies depression, Denies homicidal ideation and Denies suicidal ideation Endocrine Denies palpitations Hematologic/Lymphatic Denies easy bruising Allergic/Immunologic Denies wheezing [facility] Social History household members: significant other Smoking Status: Never smoker Exam Narrative Exam Narrative: GEN: AOx3 and in mild distress EYES: Pupils are equal, round, and reactive to light and accommodation. Extraoccular muscles are intact bilaterally. There is no subconjunctival hemorrhage or exudate. CHEST: Lungs are clear to auscultation bilaterally and free of wheezes, rales, or rhonchi. Heart rate is regular rhythm, there are no murmurs, clicks, rubs, or gallops. There is no chest wall tenderness. ABD: Abdomen is soft and nontender. There is no guarding or rebound. Bowel sounds are normal in all 4 quadrants. There is no mass or organomegaly. EXT: Full painless ROM of all extremities with no loss of sensation or strength. SKIN: Warm, pink, and dry. 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 Patient exam notes decreased range of motion and muscle spasm, but no CVA tenderness, or vertebral point tenderness. There are no symptoms of cauda equina such as saddle anesthesia, and decreased reflexes, decreased sensation or strength. Initial Vital Signs Initial Vital Signs: Vital Signs Temperature 98.0 F 11/08/18 18:35 Pulse Rate 79 11/08/18 18:35 Respiratory Rate 20 11/08/18 18:35 Blood Pressure 133/70 11/08/18 18:35 Pulse Oximetry 99 11/08/18 18:35 Course Course Narrative: MRI from outside facility eventually obtained and shows no significant or surgical findings Orders Ordered: Discontinued Medications Tramadol HCl (Ultram 50mg Prepack) 1 bottle MISC SEEINSTR ONE Stop: 11/08/18 21:07 Last Admin: 11/08/18 21:31 Dose: 1 bottle Vital Signs - 8 hr 11/08/18 21:32 Pulse Rate 72 Respiratory Rate 18 Blood Pressure [Left Arm] 128/70 Pulse Oximetry 98 MDM - Back Pain/Injury MDM Narrative Medical decision making narrative: Multiple etiologies of back pain considered including; Epidural abscess, cauda equina, mass occupying lesion, and other considered, but thought less likely given history, physical and MRI. Patient given extensive return precautions and she is able to verbalize her understanding. She has had her questions answered to her apparent satisfaction Discharge Plan Departure Patient Disposition: Home Clinical Impression: Back pain Qualifiers: Back pain location: low back pain Chronicity: chronic Back pain laterality: midline Sciatica presence: without sciatica Qualified Code(s): M54.5 - Low back pain Discharge Date/Time: 11/08/18 21:32 Interventions: ED Discharge Assessment Last Done: 11/08/18 21:32 Instructions: DI for Low Back Pain Activity Restrictions/Additional Instructions: *You have been diagnosed with [ chronic back pain ] *What to do: *Take medications as directed *Follow up with your primary care provider in 2-3 days, call for an appointment. Let them know you were seen in the Emergency Department and that we ask that you be seen in follow up *Return to ER if you should have any new, worsening or concerning symptoms Prescriptions: New ibuprofen 600 mg tablet 600 mg PO TID-QID PRN (Reason: pain) Qty: 20 RF: 0 tramadol [Ultram] 50 mg tablet 50 mg PO Q8H PRN (Reason: pain) Qty: 10 RF: 0 No Action phenytoin sodium extended [Dilantin Extended] 100 MG capsule See Rx Instructions .ROUTE .COMPLEX Qty: 0 RF: 0 atenolol 50 mg Tablet 50 mg PO DAILY RF: 0 acetaminophen [Tylenol] 325 mg Tablet 650 mg PO Q4H PRN (Reason: Pain (Scale Score 1-3)) RF: 0 aspirin 81 mg Tablet,Chewable 81 mg PO DAILY RF: 0 meloxicam [Mobic] 15 mg tablet 15 mg PO DAILY Qty: 30 RF: 0 meloxicam [Mobic] 7.5 mg tablet 7.5 mg PO DAILY PRN (Reason: pain) Qty: 10 RF: 0 meloxicam [Mobic] 7.5 mg tablet 7.5 mg PO DAILY PRN (Reason: pain, moderate) Qty: 20 RF: 0 ketorolac 10 mg tablet 10 mg PO TID PRN (Reason: pain) Qty: 10 RF: 0 diclofenac sodium [Voltaren] 1 % gel 2 gram TOP QID PRN (Reason: pain ) Qty: 100 RF: 0
[2018-11-08] MEDS: TRAMADOL 50 MG PREPACK 1 BOTTLE MISC (21:31)
[2018-11-08 21:32] VITALS: BP 128/70; PULSE 72; RESP 18; O2SAT 98
--- NOTE | 2018-11-08 21:32 | PC.NURSE ---
CSM fully intact. Able to find comfortable position supine. Denies bowel / bladder issues.
--- NOTE | 2019-06-06 11:58 | ONC.MSW ---
Description: Initial Referral Navigation Activity: Reviewed the referral for medical status and acuity. Pt is being referred back for f/u treatment of her pancytopenia. Forwarded to scheduling for next available new consult appt. time f/u.
== END 2018-11-08 21:32 | disposition home or self-care (01) ==
PROVIDERS: Emergency Provider Emergency Medicine
DX: M54.5 Low back pain (principal)
CPT/HCPCS: 99282; 99283

== ENCOUNTER → 2019-07-24 08:28 | Outpatient (CLI) | payer MEDICARE, MEDICAID, SELFPAY ==
--- NOTE | 2019-07-24 08:29 | DI.US.S_ITS ---
PROCEDURE: US ABDOMEN COMPLETE INDICATIONS: ABDOMEN PAIN,ANEMIA,ALCOHOL ABUSE,HISTORY LIVER MASSES TECHNIQUE: Real-time scanning was performed of the abdominal and retroperitoneal organs, with image documentation. COMPARISON: [facility], US, ABDOMEN COMPLETE, 10/12/2012, 21:19. [facility], CT, ABDOMEN WITH CONTRAST, 03/29/2017, 8:19. [facility], US, ABDOMEN COMPLETE, 03/21/2017, 11:40. FINDINGS: Liver: The liver demonstrates normal size. The liver demonstrates generalized increased echogenicity. This decreases ultrasound sensitivity for detection of hepatic masses. No liver mass is seen on the current study. Gallbladder: Removed. Biliary ducts: Intrahepatic bile ducts are non-dilated. Extrahepatic bile duct caliber measures 4 mm. Normal is 6-7 mm or less in diameter, or 10 mm or less post-cholecystectomy. Pancreas: Visualized portions of the pancreas are sonographically normal. Spleen: The spleen is enlarged, measuring 18.3 cm. Kidneys: Kidneys are normal in size and echotexture. Right kidney measures 11.3 cm long; left kidney measures 11 cm long. No hydronephrosis or nephrolithiasis. No solid masses. Aorta: Visualized aorta is normal in caliber at less than 3 cm. Iliacs: Not seen. IVC: Intrahepatic inferior vena cava is patent. Miscellaneous: No free abdominal fluid. IMPRESSION: No liver mass is seen on the current study. It is noted that on the 2017 CT study, likely liver hemangiomas were seen. Likely fatty infiltration. Status post cholecystectomy, without biliary dilatation. Splenomegaly, with the spleen measuring 18.3 cm. Dictated by: Jeferson Coleman M.D. on 07/24/2019 at 8:36 Approved by: Jeferson Coleman M.D. on 07/24/2019 at 8:39
== END ==
PROVIDERS: PCP Family Medicine; Referring Provider Internal Medicine Hematology & Oncology; Visit Provider Internal Medicine Hematology & Oncology
DX: R10.9 Unspecified abdominal pain (principal); R16.0 Hepatomegaly, not elsewhere classified; R16.1 Splenomegaly, not elsewhere classified; D64.9 Anemia, unspecified; F10.10 Alcohol abuse, uncomplicated; Z90.49 Acquired absence of other specified parts of digestive tract
CPT/HCPCS: 76700

== ENCOUNTER 2019-08-02 13:03 | Emergency (ER) | payer MEDICARE, MEDICAID, SELFPAY ==
[2019-08-02 13:19] VITALS: BP 165/76; PULSE 77; RESP 16; TEMP 36.5; O2SAT 100; BMI 21.4
--- NOTE | 2019-08-02 14:00 | DI.RAD.S_ITS ---
PROCEDURE: XR CHEST 1V INDICATIONS: Fatigue TECHNIQUE: One view of the chest was acquired. COMPARISON: [facility], MR, MR THORACIC SPINE WO CON, 02/04/2018, 8:52. [facility], CR, CHEST 2 VIEW, 10/03/2012, 10:30. [facility], CR, CHEST 2 VIEW, 06/09/2015, 11:32. FINDINGS: Surgical changes and devices: None. Lungs and pleura: Lungs are clear. No pleural effusions or pneumothorax. Mediastinum: The cardiac contours are within normal limits. The aorta demonstrates calcification and tortuosity. Bones and chest wall: Age-appropriate bony degenerative changes are seen. No suspicious bony lesions. Overlying soft tissues appear unremarkable. IMPRESSION: Unremarkable portable chest study for age. Dictated by: Jeferson Coleman M.D. on 08/02/2019 at 13:14 Approved by: Jeferson Coleman M.D. on 08/02/2019 at 13:14
--- NOTE | 2019-08-02 14:09 | ED_ITS ---
HPI - Headache <ALFREDO Martinez - Last Filed: 08/02/19 20:48> General Chief Complaint: Headache Stated Complaint: DOESN'T FEEL GOOD Time Seen by Provider: 08/02/19 13:30 Mode of arrival: Ambulatory Limitations: no limitations History of Present Illness HPI Narrative: 69yo female with a history of chronic back pain and pancytopenia, presents to the emergency department today for ?I do not feel like myself . Patient initially refused to talk to staff. However, when asked further questions she became tearful. She states she has felt tired for the past 4-6 months and has felt like ?something is not right. She denies any chest pain, shortness of breath, cough, fevers, night sweats, chills, nausea, vomiting, diarrhea, abdominal pain, trauma, or any other concerns. She denies any suicidal or homicidal ideation. She agreed to talking with social service manager due to anxiety over recent chronic lab changes. Related Data Home Medications Medication Instructions Recorded Confirmed phenytoin sodium extended See Rx Instructions .ROUTE 05/20/17 07/19/19 [Dilantin Extended] .COMPLEX #0 atenolol 50 mg PO DAILY 08/30/17 07/19/19 Allergies Allergy/AdvReac Type Severity Reaction Status Date / Time erythromycin base Allergy Unknown Gastrointestinal Verified 08/02/19 13:38 [ERYTHROMYCIN BASE] Upset Review of Systems <ALFREDO Martinez - Last Filed: 08/02/19 20:48> Review of Systems Narrative: REVIEW OF SYSTEMS: GENERAL: Reports fatigue, see HPI. HENT: No head trauma, hearing loss or sore throat. EYES: No vision changes. CARDIOVASCULAR: No chest pain or syncope. RESPIRATORY: No shortness of breath or cough. GASTROINTESTINAL: No nausea, vomiting, diarrhea, or constipation. GENITOURINARY: No flank pain or dysuria. MUSCULOSKELETAL: Reports chronic back pain. INTEGUMENTARY: No rash, lesions, or pruritus. NEURO: No numbness or tingling. PSYCH: Reports increased frustration and tearfulness. Patient History <ALFREDO Martinez - Last Filed: 08/02/19 20:48> Medical History Chronic back pain (Acute) History of ectopic (Acute) Hypertension (Acute) Surgical History History of cholecystectomy (Acute) No pertinent past surgical history (Acute) Family History Grandmother Hypertension Social History household members: significant other Smoking Status: Current some day smoker alcohol intake: current Smoking Status: Current some day smoker alcohol intake frequency: 3 or more drinks per day Alcohol type: hard liquor Substance Use Type: does not use Exam <ALFREDO Martinez - Last Filed: 08/02/19 20:48> Initial Vital Signs Initial Vital Signs: Vital Signs Temperature 97.7 F 08/02/19 13:19 Pulse Rate 77 08/02/19 13:19 Respiratory Rate 16 08/02/19 13:19 Blood Pressure 165/76 H 08/02/19 13:19 Pulse Oximetry 100 08/02/19 13:19 PHYSICAL EXAMINATION: GENERAL: Patient alert, slow to answer appears intoxicated. Patient with dramatic affective response to occasional answers. Occasionally tearful during examination. Vital signs noted. HENT: Normocephalic, atraumatic. Ear canals patent. Oral mucosa is pink and moist. EYES: PERRLA, conjunctiva pink, sclera white, no periorbital swelling. CHEST: Normal to inspection and without deformities. CARDIOVASCULAR: S1 and S2 sounds normal. Regular rate and rhythm, no murmurs, clicks, or bruits. No pedal edema. RESPIRATORY: Normal respiratory rate, trachea midline, airway patent. No stridor, nasal flaring or accessory muscle use. Lungs are clear in all wiggins without wheeze, rhonchi, or crackles. GASTROINTESTINAL: Bowel sounds normoactive. Abdomen is soft and non-tender. No organomegaly. MUSCULOSKELETAL: Normal gait and coordination. Equal tone and mass bilaterally. EXTREMITIES: CMS intact. Moves all extremities. SKIN: Warm, dry, soft, appropriate color for ethnicity. No lesions, rashes, or wounds. NEURO: Alert and Oriented X 3. Patient has slow speech with an occasional slurring of word, consistent with alcohol intoxication. PSYCH: Appropriate affect and mood. <Rubi Cerrato DO - Last Filed: 08/03/19 07:48> Initial Vital Signs Initial Vital Signs: Vital Signs Temperature 97.7 F 08/02/19 13:19 Pulse Rate 77 08/02/19 13:19 Respiratory Rate 16 08/02/19 13:19 Blood Pressure 165/76 H 08/02/19 13:19 Pulse Oximetry 100 08/02/19 13:19 Course <ALFREDO Martinez - Last Filed: 08/02/19 20:48> Course Course Narrative: DEPUTY PROSECUTING ATTORNEY spoke with patient, per DEPUTY PROSECUTING ATTORNEY, patient reported increased anxiety over continuous abnormal lab results, patient is ?nervous she may have cancer cough. Patient was reassessed after DEPUTY PROSECUTING ATTORNEY consultation, appeared more calm with less outburst. Orders Ordered: ED Orders 08/02/19 14:00 XR chest 1V Stat EKG-12 Lead Stat 08/02/19 14:06 Consult to [facility] Certified Paralegal Stat 08/02/19 14:25 Complete Blood Count AUTO DIFF Stat Comprehensive Metabolic Panel Stat Ethanol (ETOH) Stat Troponin & CK Cardiac Panel Stat Consultations Consultation #1: Patient staffed with Dr. Cerrato, discussed plan of care, discharge, and results. Vital Signs Vital signs: Vital Signs - 8 hr 08/02/19 13:19 08/02/19 16:23 Temperature 97.7 F Pulse Rate 77 76 Respiratory Rate 16 Blood Pressure 165/76 H Blood Pressure [Right Arm] 166/76 H Pulse Oximetry 100 99 <Rubi Cerrato DO - Last Filed: 08/03/19 07:48> Orders Ordered: ED Orders 08/02/19 14:00 XR chest 1V Stat EKG-12 Lead Stat 08/02/19 14:06 [facility] 08/02/19 14:25 Complete Blood Count AUTO DIFF Stat Comprehensive Metabolic Panel Stat Ethanol (ETOH) Stat Troponin & CK Cardiac Panel Stat Vital Signs Vital signs: Vital Signs - 8 hr 08/02/19 13:19 08/02/19 16:23 Temperature 97.7 F Pulse Rate 77 76 Respiratory Rate 16 Blood Pressure 165/76 H Blood Pressure [Right Arm] 166/76 H Pulse Oximetry 100 99 MDM - Headache <ALFREDO Martinez - Last Filed: 08/02/19 20:48> Medical Records Attestation: I reviewed the patient's medical records. Lab Data Attestation: I reviewed the patient's lab results. Result diagrams: 08/02/19 14:25 08/02/19 14:25 Labs: Lab Results 08/02/19 08/02/19 Range/Units 14:25 14:25 WBC 2.4 L (4.5-11.0) X10^3/uL RBC 3.98 L (4.0-5.2) X10^6/uL Hgb 7.3 L (12.0-16.0) g/dL Hct 26.3 L (36-46) % MCV 66.1 L (80-100) fL MCH 18.4 L (26-34) PG MCHC 27.9 L (30-36) % RDW 19.6 H (11.6-14.8) % Plt Count 94 L (150-400) X10^3/uL Neut % (Auto) 51.7 (50-75) % Lymph % (Auto) 36.2 (25-40) % Pinal % (Auto) 8.8 (3-14) % Eos % (Auto) 2.1 (2-4) % Baso % (Auto) 1.2 (0-2) % Neut # (Auto) 1200 L (9086-4546) /uL Lymph # (Auto) 900 L (5622-7017) /uL Pinal # (Auto) 200 (0-900) /uL Eos # (Auto) 0 (0-450) /uL Baso # (Auto) 0 (0-100) /uL RBC Morphology See below Hypochromasia 2+ H Anisocytosis 2+ H Microcytosis 2+ H Ovalocytes 2+ H Sodium 143 (137-145) mmol/L Potassium 3.5 (3.4-5.1) mmol/L Chloride 109 H (98-107) mmol/L Carbon Dioxide 22 (22-32) mmol/L BUN 9 (7-17) mg/dL Creatinine 0.49 L (0.52-1.04) mg/dL Estimated GFR > 60.0 (>60) mL/min BUN/Creatinine Ratio 18.4 (6-22) Glucose 80 (80-110) mg/dL Calcium 8.7 (8.4-10.2) mg/dL Total Bilirubin 1.0 (0.2-1.3) mg/dL AST 124 H (14-36) IU/L ALT 35 H (<35) IU/L Alkaline Phosphatase 96 (38-126) U/L Total Creatine Kinase 29 L (30-135) U/L CK-MB (CK-2) TNP CK-MB (CK-2) Rel Index TNP Troponin I < 0.012 (0.01-0.034) ng/mL Total Protein 7.5 (6.3-8.2) g/dL Albumin 4.0 (3.5-5.0) g/dL Globulin 3.5 (1.7-4.1) g/dL Albumin/Globulin Ratio 1.1 (1.0-2.8) Ethyl Alcohol 249 H ( - 10) mg/dL Imaging Data Chest x-ray: Radiologist's Impression: [address] [address] XRay Report Signed Patient: Flor Santos JMR#: [id number] : [id number]:[id number] Age/Sex: 69 / FDate of Service: 08/02/19 Loc: ED Accession Number: [id number] Procedure: XR chest 1V Ordering Provider: Amanda Stevens PROCEDURE: XR CHEST 1V INDICATIONS: Fatigue TECHNIQUE: One view of the chest was acquired. COMPARISON: [facility], , MR THORACIC SPINE WO CON, 02/04/2018, 8:52. [facility], , CHEST 2 VIEW, 10/03/2012, 10:30. [facility], , CHEST 2 VIEW, 06/09/2015, 11:32. FINDINGS: Surgical changes and devices: None. Lungs and pleura: Lungs are clear. No pleural effusions or pneumothorax. Mediastinum: The cardiac contours are within normal limits. The aorta demonstrates calcification and tortuosity. Bones and chest wall: Age-appropriate bony degenerative changes are seen. No suspicious bony lesions. Overlying soft tissues appear unremarkable. IMPRESSION: Unremarkable portable chest study for age. Dictated by: Jeferson Coleman M.D. on 08/02/2019 at 13:14 Approved by: Jeferson Coleman M.D. on 08/02/2019 at 13:14 [facility] Narrative Medical decision making narrative: 69-year-old female with history of chronic back pain and intoxication, presents emergency department for ?not feeling like herself ?. Laboratory work shows consistent pancytopenia without concern or need for transfusion. Patient is hemodynamically stable, less concern for infectious etiology due to benign abdominal examination, lack of cough, patient is afebrile, non tachycardic, and chest x-rays negative for any signs of infection. Differential does include malignancy and chronic alcohol use (patient currently intoxicated at this time, see labs). Patient has been seeing Dr. Ye in oncology. She was encouraged to make a follow-up appointment to discuss further testing if indicated. No indication for need of acute intervention at this time. I suspect patient also has increasing anxiety, DEPUTY PROSECUTING ATTORNEY consult with patient which appeared to approve her mood. She was given resources for follow-up including detox resources. Patient was discharged with return precautions. She agreed to plan of care verbalized understanding. <Rubi Cerrato, DO - Last Filed: 08/03/19 07:48> Lab Data Labs: Lab Results 08/02/19 08/02/19 Range/Units 14:25 14:25 WBC 2.4 L (4.5-11.0) X10^3/uL RBC 3.98 L (4.0-5.2) X10^6/uL Hgb 7.3 L (12.0-16.0) g/dL Hct 26.3 L (36-46) % MCV 66.1 L (80-100) fL MCH 18.4 L (26-34) PG MCHC 27.9 L (30-36) % RDW 19.6 H (11.6-14.8) % Plt Count 94 L (150-400) X10^3/uL Neut % (Auto) 51.7 (50-75) % Lymph % (Auto) 36.2 (25-40) % Pinal % (Auto) 8.8 (3-14) % Eos % (Auto) 2.1 (2-4) % Baso % (Auto) 1.2 (0-2) % Neut # (Auto) 1200 L (0986-3472) /uL Lymph # (Auto) 900 L (0735-5308) /uL Pinal # (Auto) 200 (0-900) /uL Eos # (Auto) 0 (0-450) /uL Baso # (Auto) 0 (0-100) /uL RBC Morphology See below Hypochromasia 2+ H Anisocytosis 2+ H Microcytosis 2+ H Ovalocytes 2+ H Sodium 143 (137-145) mmol/L Potassium 3.5 (3.4-5.1) mmol/L Chloride 109 H (98-107) mmol/L Carbon Dioxide 22 (22-32) mmol/L BUN 9 (7-17) mg/dL Creatinine 0.49 L (0.52-1.04) mg/dL Estimated GFR > 60.0 (>60) mL/min BUN/Creatinine Ratio 18.4 (6-22) Glucose 80 (80-110) mg/dL Calcium 8.7 (8.4-10.2) mg/dL Total Bilirubin 1.0 (0.2-1.3) mg/dL AST 124 H (14-36) IU/L ALT 35 H (<35) IU/L Alkaline Phosphatase 96 (38-126) U/L Total Creatine Kinase 29 L (30-135) U/L CK-MB (CK-2) TNP CK-MB (CK-2) Rel Index TNP Troponin I < 0.012 (0.01-0.034) ng/mL Total Protein 7.5 (6.3-8.2) g/dL Albumin 4.0 (3.5-5.0) g/dL Globulin 3.5 (1.7-4.1) g/dL Albumin/Globulin Ratio 1.1 (1.0-2.8) Ethyl Alcohol 249 H ( - 10) mg/dL Discharge Plan Departure Patient Disposition: Home Clinical Impression: Fatigue Qualifiers: Fatigue type: unspecified Qualified Code(s): R53.83 - Other fatigue Discharge Date/Time: 08/02/19 16:39 Instructions: DI for Fatigue Prescriptions: No Action phenytoin sodium extended [Dilantin Extended] 100 MG capsule See Rx Instructions .ROUTE .COMPLEX Qty: 0 RF: 0 atenolol 50 mg Tablet 50 mg PO DAILY RF: 0 Referrals: Elena Carter [Primary Care Provider] -
[2019-08-02 14:34] LABS: Add Manual Diff / Slide Review NO; Basophils Absolute Auto 0 /uL (0-100); Basophils Percent Auto 1.2 % (0-2); Eosinophils Absolute Auto 0 /uL (0-450); Eosinophils Percent Auto 2.1 % (2-4); Hematocrit 26.3 % (36-46); Hemoglobin 7.3 g/dL (12.0-16.0); Lymphocytes Absolute Auto 900 /uL (1100-4500); Lymphocytes Percent Auto 36.2 % (25-40); Mean Corpuscular HGB Conc 27.9 % (30-36); Mean Corpuscular Hemoglobin 18.4 PG (26-34); Mean Corpuscular Volume 66.1 fL (80-100); Monocytes Absolute Auto 200 /uL (0-900); Monocytes Percent Auto 8.8 % (3-14); Neutrophils Absolute Auto 1200 /uL (1500-7000); Neutrophils Percent Auto 51.7 % (50-75); Platelet Count 94 X10^3/uL (150-400); Red Blood Cell Count 3.98 X10^6/uL (4.0-5.2); Red Cell Distribution Width 19.6 % (11.6-14.8); White Blood Cell Count 2.4 X10^3/uL (4.5-11.0)
[2019-08-02 14:49] LABS: Alanine Aminotransferase 35 IU/L (<35); Albumin Globulin Ratio 1.1 (1.0-2.8); Alkaline Phosphatase 96 U/L (38-126); Aspartate Aminotransferase 124 IU/L (14-36); BUN Creatinine Ratio 18.4 (6-22); Blood Urea Nitrogen 9 mg/dL (7-17); Calcium 8.7 mg/dL (8.4-10.2); Carbon Dioxide 22 mmol/L (22-32); Chloride 109 mmol/L (98-107); Creatine Kinase 29 U/L (30-135); Estimated Glomerular Filt Rate > 60.0 mL/min (>60); Ethanol (ETOH) 249 mg/dL; Globulin 3.5 g/dL (1.7-4.1); Glucose 80 mg/dL (80-110); HEMOLYSIS < 15 (0-50); Potassium 3.5 mmol/L (3.4-5.1); Sodium 143 mmol/L (137-145); Total Protein 7.5 g/dL (6.3-8.2)
[2019-08-02 14:59] LABS: Troponin I < 0.012 ng/mL (0.01-0.034)
[2019-08-02 15:10] LABS: Anisocytosis 2+; Microcytosis 2+
[2019-08-02 15:11] LABS: Hypochromasia 2+; Ovalocytes 2+
[2019-08-02 16:23] VITALS: BP 166/76; PULSE 76; O2SAT 99
--- NOTE | 2019-08-02 16:35 | PC.NURSE ---
pt stated with 2 nurses i just don't feel well pt given no indication of an issue. pt did speak with PATHOLOGY SECRETARY/TRANSCRIPTIONIST and gave him information about fears of an upcoming appt about possible breast cancer.
--- NOTE | 2019-08-02 17:18 | CM.SWNOTE ---
HIRED WORKER Note ED HIRED WORKER - Phototypesetting Equipment Monitor Assessment HIRED WORKER - Phototypesetting Equipment Monitor Assessment Start: 08/02/19 16:40 Freq: Status: Active Protocol: Document 08/02/19 16:41 ARIELLA (Rec: 08/02/19 17:18 ARIELLA [id number]) HIRED WORKER/Phototypesetting Equipment Monitor Assessment Time Spent with Patient Start date 07/19/19 Visit Start Time 14:10 End date 08/02/19 Visit End Time 16:00 Total time Care Management spent on 110 patient visit-in minutes Mental Health Screening Include Onset, Duration, Intensity Presenting Problem Patient presents to ED for stated complaint of not feeling right Patient states she thinks that she is really scared because she is paying the jaramillo for moderate drinking for the past 40 years, and states the she believes her liver is failing. Patient explains that she hasn't been feeling like [her]self for the last 6 months. Precipitating Event(s) Patient's son moved back in with patient and S/O roughly 5 months ago, and patient describes this as a stressor. Patient says she had an appointment with her oncologist today which she was nervous about because she believes that she does have cancer. Current Behavioral Health Provider(s) Patient sees Dr. Roth for Include Facility, Provider, Ph. # Oncology Patient sees Dr. Tam at [facility] for PCP, but is unsatisfied with care. Patient currently does not have counselor or behavioral health support, but expressed interest in obtaining counselor. Psych. Hx Mental Health and Chemical Patient says she has seen Dependency counselors in past but does not disclose any diagnoses. Patient identifies herself as an alcoholic and said she has been drinking 1/2 pint of hard alcohol per day for the past 15+ years. Patient states she started drinking more after she stopped working . Family Hx of Behavioral Abuse None reported. Psychiatric Hospitalizations (date(s)/ None reported. location) Support System(s) Patient describes her S/O of 41 as being very supportive. Patient lives with son, who she does not describe as a strong support. Patient describes her mother as a significant support as well. School/Work None. Patient describes feeling more worried, depressed, and unmotivated since she retired roughly 6 years ago. Substance Abuse Screening Include Onset, Duration, Intensity Family Hx of Behavioral Abuse None reported. Rehab Facilities? ((Date(s), Location(s) None reported. ) Legal Concerns Legal Matters - Outstanding Issues None reported. Mental Status Orientation (Person/Place/Time) Oritented x3 Affect intoxicated but overall appropriate for context. Thought Content - Specify/Describe Patient did express significant Obsessions, Delusions, Hallucinations worry about an appointment with her oncologist which she missed today due to coming to ED. Patient reports that the oncologist was going to tell her at this appointment if she had cancer. No hallucinations, delusions, or obsessions observed or reported. Thought Processes (Urgnxsh-Hzutoqns-Blup Circumstantial Rerpxjbc-Binsawgi-Tvdiisuuwg- Encogknqhyfscb-Euwyhqn-Erucigwtapnr- Thought Blocking) Speech (Jbcani-Aakj-Vymwtff-Rapid-Soft- Slurred due to current ETOH Loud-Pressured) use. Motor (Wmbten-Jyndbgpxk-Pwhy-Other) Normal Insight (Present-Partially Present- Present Impaired) Judgement (Intact-Impaired) Impaired Impulse Control (Adequate-Impaired) Impaired. Memory (Eumuiyjxt-Xffzda-Jxsxls, Mostly intact. Patient Impaired-Intact) mentions that S/O brought her to ER, but later in assessment states she doesn't remember how [she] got to the ER. Concentration (Intact-Impaired) Intact Attention (Intact-Impaired) Impaired Behavior (Appropriate-Inappropriate) Mostly appropriate for context . Additional Comment Toxicology lab reports ETOH of 249 mg/dL upon presentation to ED. Patient slurred speech during conversation with HIRED WORKER. Risk Assessment Suicidal Ideation (Plan) No Homicidal Ideation (Plan) No Comment Patient denies any HI/SI, says she never has thought about it. Patient cites her ian as a reason for not thinking about SI/HI. Intervention Intervention HIRED WORKER met with patient. Patient is intoxicated during visit and slurs her speech. Patient says she is really nervous about an appointment with her oncologist because she believes the oncologist will tell her she has cancer. Patient missed today's appointment because she was in ED. HIRED WORKER and patient discuss alcohol use. Patient explains that she believes her alcohol use has caused her to have cancer, but says she has received no type of confirmation that she does have cancer. Patient says she has tried AA but does not like it and is open to talking with someone who has been there but won't tell you the story that you want to hear. Patient explains that she thinks it is very likely that she has cancer, but that she has zero confidence to discontinue her alcohol use. HIRED WORKER and patient discussed mental health support. Patient states she's seen counselors in the past, but always felt that she could see what they were trying to do and does not want a counselor that investigates her childhood. Patient said she'd be interested in talking to someone who could help her with right now. Patient discussed chronic back pain, and said she only sees PCP 1x/year. Patient says she is dissatisfied with care. HIRED WORKER encouraged patient to consider requesting a transfer to a different provider who could help her better health manager her care. HIRED WORKER highlighted that patient had been to ED a few times for this, and discussed finding a PCP who could help manage the pain such that she would have to get to the point of coming to the ED for pain. Patient indicated understanding. Plan RA Plan Patient will be d/c home with S/O. HIRED WORKER gave notes to provider for d/c plan and reviewed the summary with patient which included: - Rescheduling appt with Dr. Roth and attending appointment - Seeking a new PCP - Finding a counselor who was a good fit for patient, and encouraged patient that it was OK to try a few counselors to find good fit - [facility] Addiction Help hotline phone - ED HIRED WORKER phone for additional resource follow up TRUONG Palm
== END 2019-08-02 16:39 | disposition home or self-care (01) ==
PROVIDERS: Emergency Provider Nurse Practitioner; PCP Family Medicine
DX: R53.83 Other fatigue (principal); F10.129 Alcohol abuse with intoxication, unspecified; Y90.8 Blood alcohol level of 240 mg/100 ml or more
CPT/HCPCS: 36415; 71045; 80053; 80320; 82550; 84484; 85025; 93005; 99284

== ENCOUNTER → 2019-10-24 08:30 | Oncology outpatient (ONC) | payer MEDICARE, MEDICAID, SELFPAY ==
--- NOTE | 2019-06-21 09:36 | ONC.SCHED ---
Patient no-showed her appointment on 06/18. She called on 06/19 saying she had been referred to us and was looking to schedule an appointment. She had no recollection of scheduling the appointment with [facility].
--- NOTE | 2019-07-11 09:53 | ONC.SCHED ---
checked with Dr Spencer today since he had an opening and the patient wanted to come in, however, he said her case was better for a consistant oncologist/spoke with Roopa (not sure how he is related to Flor) and let him know that since she had no showed twice, she needed to be sure she showed for this appt, he stated that one of the appt she did not know about so he said she really only no showed for one appt. Put her on for July [address] Ye[address]
[2019-07-19 10:17] VITALS: BP 153/82; PULSE 79; RESP 18; TEMP 36.8; O2SAT 100
--- NOTE | 2019-07-19 10:55 | ONC.CONS ---
History of Present Illness - Data of Consult Patient: new to practice Consult date: 07/19/19 Requesting Physician: Elena Catrer MD Primary Care Provider: Elena Carter MD - Consult Narrative Reason for consult: Anemia Narrative: Flor Santos is a 69 year old female. She is having some fatigue. It bothers her that her back hurts, right more than left. The pain has been doing on for about 4-5 months. The pain comes and goes. She sits too long, that brings on worse. She seemed to relief when she sleeps. When she gets up in the morning, it comes back again. The pain is about 8/10 when it is really bad. Normally, it is around 5-6/10. She has been taking advil and nothing seems to be working for her pain. No nausea and no vomiting. No blood in the stool. No black stool. No other pain problems per patient. She denies shortness of breath. The available information in the computer showed that the labs from 10/22/2018 reviewed WBC 5.7, hemoglobin 8.7, hematocrit 30.2, MCV 73.6, platelet counts 160, sodium 142, potassium 3.5, creatinine 0.5, glucose 108, calcium 9.2, AST 72, ALT 39, total protein 7.4. CC: Erica Ye MD Patient reports pain?: Yes Home Medications and Allergies Home Medications Medication Instructions Recorded Confirmed Type phenytoin sodium extended See Rx Instructions .ROUTE 05/20/17 07/19/19 History [Dilantin Extended] .COMPLEX #0 atenolol 50 mg PO DAILY 08/30/17 07/19/19 History Allergies Allergy/AdvReac Type Severity Reaction Status Date / Time erythromycin base Allergy Unknown Gastrointestinal Verified 10/22/18 14:42 [ERYTHROMYCIN BASE] Upset Medical History - Medical, Surgical, Family History Medical History: Medical History (Last Updated 07/19/19 @ 11:07 by Erica Ye MD) Chronic back pain History of ectopic Hypertension Surgical History: Surgical History (Last Updated 07/19/19 @ 11:07 by Erica Ye MD) History of cholecystectomy No pertinent past surgical history Family History: Family History (Last Updated 07/19/19 @ 11:09 by Erica Ye MD) Grandmother Hypertension - Social History Smoking Status: Never smoker Alcohol Intake: current Alcohol Intake Frequency: 0-2 drinks per day (Whiskey) Review of Systems All systems PM: reviewed and no additional remarkable complaints except as stated (Those mentioned in HPI) Exam Vital signs: Vital Signs Temp Pulse Resp BP Pulse Ox 07/19/19 10:17 98.2 F 79 18 153/82 H 100 Intake and Output 07/18/19 07/19/19 07/19/19 23:59 07:59 15:59 Other: Weight 68.4 kg Patient Weight 07/19/19 23:59 Weight 68.4 kg Narrative: ECOG 1 Vitals above reviewed Constitutional: WDWN, well nourished, and well groomed. NAD. Pleasant HEENT: NCAT, EOMI, PERRLA, anicteric sclera. Neck: Supple and symmetrical. No palpable thyromegaly or lymphadenopathy. No palpable masses. Respiratory: No use of accessory muscles, CTAB, no wheezes. Cardiovascular: RRR, S1 and S2 normal, no M/G/R. No edema of lower extremities. Abdomen: Soft, liver palpable around 3 cm below the right coastal margin; there is a exquisite tenderness just to the left side of the umbilicus with no clear palpable mass. Spleen is difficult to evaluate because of the pain. Lymphatic: no palpable palpable lymph nodes in the neck, axillae, or groins. Musculoskeletal: normal gait and station Skin: no rashes, lesions, or ulcers, no induration, or sub cutaneous nodules. Neurological: CN II-XII grossly intact. No focal motor or sensory deficit. Psychiatric: AOx3, normal mood and affect. Results - Labs Reviewed. See HPI - Imaging Additional studies: Procedures CLOSURE SKIN & SUBCUTANEOUS NEC (11/08/09) Injection or infusion of other therapeutic or prophylactic substance (11/19/13) Insertion of endotracheal tube (04/14/10) Assessment and Plan (1) Anemia Overview: 69-year-old female with known history of alcohol abuse and anemia was referred here for evaluation. Patient is drinking whiskey about 0.5-1 drinks per day. She is complaining significant back pain, right more than the left. She denies any blood in the stool or black stool. On my physical exam she was found ot have significant hepatomegaly and exquisite left-sided tenderness noted. Assessment: I explained to the patient that her previous lab results from October 2018 are consistent with iron deficiency anemia. I talked with her that I will repeat the lab tests first. In addition given the significant abdominal pain on my physical examination and hepatomegaly, I will obtain ultrasound study to further evaluate. I will see the patient after the results are available to review. Plan: CBC, CMP, Iron panel, Ferritin US abdomen, complete RTC after results are available
[2019-07-25 08:28] LABS: Add Manual Diff / Slide Review NO; Basophils Absolute Auto 0 /uL (0-100); Basophils Percent Auto 1.2 % (0-2); Eosinophils Absolute Auto 100 /uL (0-450); Eosinophils Percent Auto 2.4 % (2-4); Hematocrit 26.6 % (36-46); Hemoglobin 7.5 g/dL (12.0-16.0); Lymphocytes Absolute Auto 800 /uL (1100-4500); Lymphocytes Percent Auto 26.8 % (25-40); Mean Corpuscular HGB Conc 28.2 % (30-36); Mean Corpuscular Hemoglobin 18.9 PG (26-34); Mean Corpuscular Volume 66.9 fL (80-100); Monocytes Absolute Auto 300 /uL (0-900); Neutrophils Absolute Auto 1700 /uL (1500-7000); Neutrophils Percent Auto 59.6 % (50-75); Red Blood Cell Count 3.97 X10^6/uL (4.0-5.2); Red Cell Distribution Width 20.2 % (11.6-14.8); White Blood Cell Count 2.9 X10^3/uL (4.5-11.0)
[2019-07-25 08:38] LABS: Alanine Aminotransferase 22 IU/L (<35); Albumin 3.7 g/dL (3.5-5.0); Albumin Globulin Ratio 1.1 (1.0-2.8); Alkaline Phosphatase 82 U/L (38-126); Aspartate Aminotransferase 55 IU/L (14-36); BUN Creatinine Ratio 21.6 (6-22); Bilirubin Total 0.7 mg/dL (0.2-1.3); Blood Urea Nitrogen 11 mg/dL (7-17); Calcium 8.8 mg/dL (8.4-10.2); Carbon Dioxide 25 mmol/L (22-32); Chloride 108 mmol/L (98-107); Estimated Glomerular Filt Rate > 60.0 mL/min (>60); Globulin 3.4 g/dL (1.7-4.1); Glucose 111 mg/dL (80-110); HEMOLYSIS < 15 (0-50); Lactate Dehydrogenase 378 U/L (313-618); Sodium 142 mmol/L (137-145); Total Protein 7.1 g/dL (6.3-8.2)
[2019-07-25 08:48] LABS: HEMOLYSIS < 15 (0-50); Iron 26 ug/dL (37-170)
[2019-07-25 08:58] LABS: Percent Iron Saturation 6 % (15-50); Total Iron Binding Capacity 444 ug/dL (265-497); Transferrin 375 mg/dL (206-381)
[2019-07-25 09:00] LABS: Platelet Count 77 X10^3/uL (150-400)
[2019-07-25 09:02] LABS: Anisocytosis 2+; Hypochromasia 1+; Microcytosis 2+; Platelet Estimate Decreased on smear; Polychromasia 1+
[2019-07-25 09:03] LABS: Ovalocytes 1+
[2019-07-25 09:13] LABS: Ferritin 6 ng/mL (11-264)
--- NOTE | 2019-08-02 12:46 | PC.NURSE ---
Received phone called from Max. According to Max pt is too sick to make appointment with Dr. Ye today. Max requesting if he could come instead of pt to discuss recent imaging results and plan of care. Max states I am her power of finance attorney. Difficult to clearly understand Max, speech was slightly slurred at times. Rational provided to Max r/t today's appointment; physical assessment of pt, as well as reviewing labs and imagining etc. Explained that pt would need to be present for appt to be most beneficial. Further explained that this field underwriter could give message to Dr. Ye to call Max in order to answer any questions he may have. Also explained to Max that if pt was too sick to come in today, that we could easily reschedule pt. Max then states, well, she's about one heartbeat away from me calling 911. This field underwriter promptly gathered information r/t to pt's current symptoms. Per Max pt has increased confusion, increased right lower back pain shes drinking to try and help with the pain, but that's not really working. Pt does have history of alcohol use. Max reports pt isn't eating. Max denies pt has fever, SOB and chest pain. Max asked pt while this field underwriter was on phone if she had an burning or discomfort with urination, pt denies issues with urination. Instructed Max that he should call 911 if he believes the pt needs immediate medical attention. Max states Well your ER is worthless or one step above worthless. Further reiterated to Max, that if he believes that pt is having a medical emergency, he should call 911. Let Max know that this field underwriter would update Dr. Ye on pt's current condition and would call right back. Updated Dr. Ye and he reviewed pt's most recent labs, last prog notes, and recent imaging. Called Max back within 10 mins of previous conversation. Explained that Dr. Ye thinks pt needs to be assessed in ER r/t Max's report of symptoms, as well as; recent mental status changes, increased pain, and after reviewing recent labs. Max verbalizes understanding and states Okay, I'll do my best. Call ended.
[2019-08-13 11:54] VITALS: BP 149/80; PULSE 91; RESP 16; TEMP 36.9; O2SAT 99
--- NOTE | 2019-08-13 12:01 | ONC.PN ---
PN -Subjective Interval history: Identification and Chief Complaint 69 year old female with iron deficiency anemia. History of Present Illness Flor Santos is a 69 year old female. She admitted to history of long-term use of whiskey drinking and she is still drinking unfortunately. Patient was referred to our clinic for evaluation of severe macrocytic anemia. The available information in the computer showed that the labs from 10/22/2018 reviewed WBC 5.7, hemoglobin 8.7, hematocrit 30.2, MCV 73.6, platelet counts 160, sodium 142, potassium 3.5, creatinine 0.5, glucose 108, calcium 9.2, AST 72, ALT 39, total protein 7.4. From clinical point of view, patient has been complaining fatigue, and back pain, Interval History: Patient said that she feels tired. Other that she denies any worsening shortness of breath. She denies nausea or vomiting. She denies blood in the stool or blood in the urine. She is still drinking and she admits that she is trying to cut it down. She presents here today to review the lab test results. - Additional ROS All systems PM: reviewed and no additional remarkable complaints except as stated (those mentioned in HPI, Interval History and SR above.) Home Medications and Allergies Home Medications Medication Instructions Recorded Confirmed Type phenytoin sodium extended See Rx Instructions .ROUTE 05/20/17 08/13/19 History [Dilantin Extended] .COMPLEX #0 atenolol 50 mg PO DAILY 08/30/17 08/13/19 History Allergies Allergy/AdvReac Type Severity Reaction Status Date / Time erythromycin base Allergy Unknown Gastrointestinal Verified 08/02/19 13:38 [ERYTHROMYCIN BASE] Upset Exam Vital signs: Vital Signs Temp Pulse Resp BP Pulse Ox 08/13/19 11:54 98.4 F 91 H 16 149/80 H 99 Intake and Output 08/12/19 08/13/19 08/13/19 23:59 07:59 15:59 Other: Weight 65.8 kg Patient Weight 08/13/19 23:59 Weight 65.8 kg Narrative: ECOG 1 Vitals above reviewed Constitutional: WDWN, well nourished, and well groomed. NAD. Pleasant HEENT: NCAT, EOMI, PERRLA, anicteric sclera. Neck: Supple and symmetrical. No palpable thyromegaly or lymphadenopathy. No palpable masses. Respiratory: No use of accessory muscles, CTAB, no wheezes. Cardiovascular: RRR, S1 and S2 normal, no M/G/R. No edema of lower extremities. Abdomen: Soft, liver palpable around 3 cm below the right coastal margin; there is a exquisite tenderness just to the left side of the umbilicus with no clear palpable mass. Spleen is difficult to evaluate because of the pain. Lymphatic: no palpable palpable lymph nodes in the neck, axillae, or groins. Musculoskeletal: normal gait and station Skin: no rashes, lesions, or ulcers, no induration, or sub cutaneous nodules. Neurological: CN II-XII grossly intact. No focal motor or sensory deficit. Psychiatric: AOx3, normal mood and affect. Results - Labs Laboratory Last Values WBC 2.9 X10^3/uL (4.5-11.0) L 07/25/19 08:12 RBC 3.97 X10^6/uL (4.0-5.2) L 07/25/19 08:12 Hgb 7.5 g/dL (12.0-16.0) L 07/25/19 08:12 Hct 26.6 % (36-46) L 07/25/19 08:12 MCV 66.9 fL (80-100) L 07/25/19 08:12 MCH 18.9 PG (26-34) L 07/25/19 08:12 MCHC 28.2 % (30-36) L 07/25/19 08:12 RDW 20.2 % (11.6-14.8) H 07/25/19 08:12 Plt Count 77 X10^3/uL (150-400) L 07/25/19 08:12 Neut % (Auto) 59.6 % (50-75) 07/25/19 08:12 Lymph % (Auto) 26.8 % (25-40) 07/25/19 08:12 [place] % (Auto) 10.0 % (3-14) 07/25/19 08:12 Eos % (Auto) 2.4 % (2-4) 07/25/19 08:12 Baso % (Auto) 1.2 % (0-2) 07/25/19 08:12 Neut # (Auto) 1700 /uL (5514-1767) 07/25/19 08:12 Lymph # (Auto) 800 /uL (4755-3185) L 07/25/19 08:12 [place] # (Auto) 300 /uL (0-900) 07/25/19 08:12 Eos # (Auto) 100 /uL (0-450) 07/25/19 08:12 Baso # (Auto) 0 /uL (0-100) 07/25/19 08:12 Platelet Estimate Decreased on smear 07/25/19 08:12 RBC Morphology See below 07/25/19 08:12 Polychromasia 1+ H 07/25/19 08:12 Hypochromasia 1+ H 07/25/19 08:12 Anisocytosis 2+ H 07/25/19 08:12 Microcytosis 2+ H 07/25/19 08:12 Ovalocytes 1+ H 07/25/19 08:12 Sodium 142 mmol/L (137-145) 07/25/19 08:12 Potassium 4.0 mmol/L (3.4-5.1) 07/25/19 08:12 Chloride 108 mmol/L (98-107) H 07/25/19 08:12 Carbon Dioxide 25 mmol/L (22-32) 07/25/19 08:12 BUN 11 mg/dL (7-17) 07/25/19 08:12 Creatinine 0.51 mg/dL (0.52-1.04) L 07/25/19 08:12 Estimated GFR > 60.0 mL/min (>60) 07/25/19 08:12 BUN/Creatinine Ratio 21.6 (6-22) 07/25/19 08:12 Glucose 111 mg/dL (80-110) H 07/25/19 08:12 Calcium 8.8 mg/dL (8.4-10.2) 07/25/19 08:12 Iron 26 ug/dL (37-170) L 07/25/19 08:12 TIBC 444 ug/dL (265-497) 07/25/19 08:12 % Saturation 6 % (15-50) L 07/25/19 08:12 Transferrin 375 mg/dL (206-381) 07/25/19 08:12 Ferritin 6 ng/mL (11-264) L 07/25/19 08:12 Total Bilirubin 0.7 mg/dL (0.2-1.3) 07/25/19 08:12 AST 55 IU/L (14-36) H 07/25/19 08:12 ALT 22 IU/L (<35) 07/25/19 08:12 Alkaline Phosphatase 82 U/L (38-126) 07/25/19 08:12 Lactate Dehydrogenase 378 U/L (313-618) 07/25/19 08:12 Total Protein 7.1 g/dL (6.3-8.2) 07/25/19 08:12 Albumin 3.7 g/dL (3.5-5.0) 07/25/19 08:12 Globulin 3.4 g/dL (1.7-4.1) 07/25/19 08:12 Albumin/Globulin Ratio 1.1 (1.0-2.8) 07/25/19 08:12 - Imaging Additional studies: Procedures CLOSURE SKIN & SUBCUTANEOUS NEC (11/08/09) Injection or infusion of other therapeutic or prophylactic substance (11/19/13) Insertion of endotracheal tube (04/14/10) Assessment and Plan (1) Iron deficiency anemia due to chronic blood loss Overview: 69-year-old female with known history of alcohol abuse and anemia was referred here for evaluation. Patient is drinking whiskey about 0.5-1 drinks per day. She is complaining significant back pain, right more than the left. She denies any blood in the stool or black stool. On my physical exam she was found to have significant hepatomegaly and exquisite left-sided tenderness noted. Assessment: Today first of all I reviewed the laboratory test with the patient. The CBC showed pancytopenia. The iron studies showed severe iron deficiency with ferritin level as low as 6 and transferrin saturation only 6%. Patient's laboratory tests also showed transaminitis. The abdominal ultrasound showed no liver mass, but it showed significant splenomegaly measuring 18.3 cm. Putting everything together, I talked with the patient that these changes are consistent with liver damage caused by the drinking. In addition, the severe iron deficiency indicates chronic continuous bleeding from gastrointestinal tract. I talked with the patient that I would recommend iron infusion to replete the deficient iron storage. I will have the patient to see social work manager for workup of possible cirrhosis and gastrointestinal bleeding. I talked with the patient about the significance of trying to stop drinking. Patient voiced understanding. I will start the iron infusion tomorrow. I will see the patient in about 2 months for follow-up visit. Plan: Iron sucrose 200 mg iv weekly x 5 starting in am Referral to GI for work-up of cirrhosis and GI bleeding RTC 6-8 weeks for follow up visit, CBC, CMP, Iron panel, Ferritin
--- NOTE | 2019-08-13 12:42 | ONC.SCHED ---
Per Marium @ [facility], no PA needed for Venofer: [id number], since we are in-network. Ref# [id number].
--- NOTE | 2019-08-14 10:46 | ONC.SCHED ---
Faxed referral to [facility] for GI bleed workup.
--- NOTE | 2019-08-14 14:30 | ONC.MSW ---
Description: T/C re: No Show to Appt. Activity: Called pt at 9:00am, after she had no-showed for her 8:30am appt for her first iron infusion, to clarify why she missed the appointment, as she has a long hx of missing appts here in this clinic. Pt states that she didn't know that she had an appt, and that nobody called me. Pt was clearly heavily intoxicated. RAILROAD SIGNAL AND SWITCH OPERATOR told her that yes, she had been called, and that this is her responsibility to keep track of her appt. times. She insisted that it's our clinic's fault. RAILROAD SIGNAL AND SWITCH OPERATOR stated that could still come in for her appt, however she refused. RAILROAD SIGNAL AND SWITCH OPERATOR then told her that we will cancel this appt, and that scheduling will call her later today to reschedule, however she will need to make sure that she keeps her appointments from now moving forward, or notify us if she needs to cancel for any reason. She did not seem to understand, and continued to argue. RAILROAD SIGNAL AND SWITCH OPERATOR thanked her and ended the call.
[2019-08-21 08:58] VITALS: BP 142/69; PULSE 89; RESP 16; TEMP 36.8; O2SAT 98
--- NOTE | 2019-08-21 08:59 | PC.NURSE ---
Patient reports that she is nervous about IV start, has hx of syncope w/ needles.
[2019-08-21] MEDS: IRON SUCROSE 200 MG in SODIUM CHLORIDE 0.9% 100 ML 220 ML IV (09:03)
--- NOTE | 2019-08-28 12:57 | PC.NURSE ---
Pt rescheduled iron infusion today, will return on . Pt became very anxious with IV start and discomfort. Called in order for lido cream to [facility]. Called pt to inform her about RX and instructed her on use, pt verbalized understanding.
[2019-08-30 08:45] VITALS: BP 152/67; PULSE 76; RESP 16; TEMP 36.6; O2SAT 99
--- NOTE | 2019-08-30 08:45 | PC.NURSE ---
Pt reports being anxious in the hospital and while starting IV.
[2019-08-30] MEDS: IRON SUCROSE 200 MG in SODIUM CHLORIDE 0.9% 100 ML 220 ML IV (08:59)
[2019-09-04 08:41] VITALS: BP 136/73; PULSE 85; RESP 18; TEMP 37.1; O2SAT 99
[2019-09-04] MEDS: IRON SUCROSE 200 MG in SODIUM CHLORIDE 0.9% 100 ML 220 ML IV (08:54)
[2019-09-11 08:31] VITALS: BP 152/75; PULSE 83; RESP 18; TEMP 36.7; O2SAT 100
[2019-09-11] MEDS: IRON SUCROSE 200 MG in SODIUM CHLORIDE 0.9% 100 ML 220 ML IV (08:56)
--- NOTE | 2019-09-11 15:57 | ONC.SCHED ---
Per Reva @ [facility] Gastroenterology, patient has no-showed two appointments.Reva is going to try to reach the patient in the morning and schedule her for a morning appointment as she seems to do better with making morning appointments.
--- NOTE | 2019-09-13 09:36 | ONC.SCHED ---
Per Reva at [facility] Gastro: patient is scheduled for consult on 09/19 @ 10:00am (previously no-showed two appointments)
--- NOTE | 2019-10-04 12:12 | ONC.SCHED ---
Spoke to patient today to move her appt off of saturday 10/[address] Ye has too many patients. Patient stated she did not know she had to do lab work prior to her appt so I reminded her. Also, she has not gone to the GI doctor and doesn't think she needs to go (no show 3x). She has been rescheduled for 10/23/[address] Hart.
--- NOTE | 2019-10-22 09:23 | ONC.SCHED ---
Left detailed message informing patient that we were able to get her an earlier appointment for 10/23 to replace her 10/22 appointment. Asked that she call right away if she wouldn't be able to make appointment.
[2019-10-24 08:36] VITALS: BP 142/83; PULSE 88; RESP 18; TEMP 36.8; O2SAT 100
[2019-10-24 08:40] LABS: Add Manual Diff / Slide Review YES; Hematocrit 41.9 % (36-46); Hemoglobin 13.4 g/dL (12.0-16.0); Mean Corpuscular Hemoglobin 28.5 PG (26-34); Platelet Count 87 X10^3/uL (150-400); Red Blood Cell Count 4.71 X10^6/uL (4.0-5.2); Red Cell Distribution Width 21.1 % (11.6-14.8); White Blood Cell Count 3.5 X10^3/uL (4.5-11.0)
[2019-10-24 08:57] LABS: Alanine Aminotransferase 53 IU/L (<35); Albumin 4.5 g/dL (3.5-5.0); Albumin Globulin Ratio 1.1 (1.0-2.8); Alkaline Phosphatase 145 U/L (38-126); Aspartate Aminotransferase 219 IU/L (14-36); BUN Creatinine Ratio 18.8 (6-22); Bilirubin Total 1.9 mg/dL (0.2-1.3); Blood Urea Nitrogen 9 mg/dL (7-17); Calcium 9.2 mg/dL (8.4-10.2); Carbon Dioxide 20 mmol/L (22-32); Chloride 104 mmol/L (98-107); Estimated Glomerular Filt Rate > 60.0 mL/min (>60); Globulin 4.1 g/dL (1.7-4.1); Glucose 116 mg/dL (80-110); HEMOLYSIS 18 (0-50); Iron 59 ug/dL (37-170); Potassium 4.8 mmol/L (3.4-5.1); Sodium 137 mmol/L (137-145); Total Protein 8.6 g/dL (6.3-8.2)
[2019-10-24 08:58] LABS: Anisocytosis 1+; HEMOLYSIS 126 (0-50); Neutrophils Absolute Manual 1890 /uL (3000-5900); Total Cells Counted 50
[2019-10-24 09:08] LABS: Percent Iron Saturation 13 % (15-50); Total Iron Binding Capacity 448 ug/dL (265-497); Transferrin 330 mg/dL (206-381)
--- NOTE | 2019-10-24 09:08 | P.PNONC_ITS ---
PN -Subjective Interval history: Identification and Chief Complaint 69 year old female with iron deficiency anemia. Ms. Santos presents today for follow-up of her iron deficiency anemia. She was recently evaluated and in July of this year was found to have a ferritin of 6 and an iron saturation of 6 in the setting of a severe hypochromic microcytic anemia with a hemoglobin of 7 7.3 MCV 66.1. She was advised to take IV iron which she received on August 20, , and . She comes today for a follow-up visit. Today she notes that she has had some anorexia and a 7 lb weight loss over the last 6-12 months. She has been a heavy whiskey drinker but has cut back and is now states she is drinking about 3 drinks a day. She states that a pt will last her 2-3 days. She smokes about 4 cigarettes a day. She is not having any problems with pain, bleeding, lumps or bumps, fever, chills, sweats, nausea, vomiting, constipation, diarrhea, cough, shortness of breath, dysphagia, heartburn or rash. All other systems are negative. Past medical history 1. High blood pressure 2. Pneumonia as a teenager 3. She denies diabetes, rheumatic fever, tuberculosis, heart attacks, strokes, stomach ulcers, or any kind of cancer 4. Previous surgeries include a cholecystectomy an ectopic 5. Family history is negative for blood disorders or cancer 6. She continues to have 3 drinks a day and smoked 4 cigarettes a day. - Patient Self-Reported Symptoms SR Constitution: Weight loss/gain SR Gastrointestinal issues: Poor or no appetite Home Medications and Allergies Home Medications Medication Instructions Recorded Confirmed Type phenytoin sodium extended See Rx Instructions .ROUTE 05/20/17 10/24/19 History [Dilantin Extended] .COMPLEX #0 atenolol 50 mg PO DAILY 08/30/17 10/24/19 History Allergies Allergy/AdvReac Type Severity Reaction Status Date / Time erythromycin base Allergy Unknown Gastrointestinal Verified 08/02/19 13:38 [ERYTHROMYCIN BASE] Upset Exam Vital signs: Vital Signs Temp Pulse Resp BP Pulse Ox 10/24/19 08:36 98.2 F 88 18 142/83 H 100 Intake and Output 10/23/19 10/24/19 10/24/19 23:59 07:59 15:59 Other: Weight 62.5 kg Patient Weight 10/24/19 23:59 Weight 62.5 kg Narrative: She was awake, alert and oriented x3. She was in no acute distress. There was no palpable lymphadenopathy in the cervical, supraclavicular, axillary, inguinal or femoral regions. Lungs were clear without wheezes or rales. Heart showed a regular rate and rhythm without murmur, gallop or rub. The abdomen is soft and nontender without organomegaly or masses. The spleen was not palpable in the right lateral decubitus position. There was no evidence of phlebitis in the lower extremities. Results - Labs Laboratory Last Values WBC 3.5 X10^3/uL (4.5-11.0) L 10/24/19 08:16 RBC 4.71 X10^6/uL (4.0-5.2) 10/24/19 08:16 Hgb 13.4 g/dL (12.0-16.0) 10/24/19 08:16 Hct 41.9 % (36-46) 10/24/19 08:16 MCV 89.0 fL (80-100) 10/24/19 08:16 MCH 28.5 PG (26-34) 10/24/19 08:16 MCHC 32.0 % (30-36) 10/24/19 08:16 RDW 21.1 % (11.6-14.8) H 10/24/19 08:16 Plt Count 87 X10^3/uL (150-400) L 10/24/19 08:16 Neut % (Auto) Not Reportable 10/24/19 08:16 Lymph % (Auto) Not Reportable 10/24/19 08:16 [place] % (Auto) Not Reportable 10/24/19 08:16 Eos % (Auto) Not Reportable 10/24/19 08:16 Baso % (Auto) Not Reportable 10/24/19 08:16 Neut # (Auto) 1700 /uL (5249-0202) 07/25/19 08:12 Lymph # (Auto) Not Reportable 10/24/19 08:16 [place] # (Auto) Not Reportable 10/24/19 08:16 Eos # (Auto) 100 /uL (0-450) 07/25/19 08:12 Baso # (Auto) Not Reportable 10/24/19 08:16 Total Counted 50 10/24/19 08:16 Seg Neutrophils % 54.0 % (38-70) 10/24/19 08:16 Lymphocytes % (Manual) 22.0 % (25-45) L 10/24/19 08:16 Monocytes % (Manual) 22.0 % (2-11) H 10/24/19 08:16 Basophils % (Manual) 2.0 % (0-1) H 10/24/19 08:16 Neutrophils # (Manual) 1890 /uL (6960-7599) L 10/24/19 08:16 Platelet Estimate Decreased on smear 07/25/19 08:12 RBC Morphology Not Reportable 10/24/19 08:16 Polychromasia 1+ H 07/25/19 08:12 Hypochromasia 1+ H 07/25/19 08:12 Anisocytosis 1+ H 10/24/19 08:16 Microcytosis 2+ H 07/25/19 08:12 Ovalocytes 1+ H 07/25/19 08:12 Sodium 137 mmol/L (137-145) 10/24/19 08:16 Potassium 4.8 mmol/L (3.4-5.1) 10/24/19 08:16 Chloride 104 mmol/L (98-107) 10/24/19 08:16 Carbon Dioxide 20 mmol/L (22-32) L 10/24/19 08:16 BUN 9 mg/dL (7-17) 10/24/19 08:16 Creatinine 0.48 mg/dL (0.52-1.04) L 10/24/19 08:16 Estimated GFR > 60.0 mL/min (>60) 10/24/19 08:16 BUN/Creatinine Ratio 18.8 (6-22) 10/24/19 08:16 Glucose 116 mg/dL (80-110) H 10/24/19 08:16 Calcium 9.2 mg/dL (8.4-10.2) 10/24/19 08:16 Iron 59 ug/dL (37-170) 10/24/19 08:16 TIBC 444 ug/dL (265-497) 07/25/19 08:12 % Saturation 6 % (15-50) L 07/25/19 08:12 Transferrin 375 mg/dL (206-381) 07/25/19 08:12 Ferritin 6 ng/mL (11-264) L 07/25/19 08:12 Total Bilirubin 1.9 mg/dL (0.2-1.3) H 10/24/19 08:16 AST 219 IU/L (14-36) H 10/24/19 08:16 ALT 53 IU/L (<35) H 10/24/19 08:16 Alkaline Phosphatase 145 U/L (38-126) H 10/24/19 08:16 Lactate Dehydrogenase 378 U/L (313-618) 07/25/19 08:12 Total Protein 8.6 g/dL (6.3-8.2) H 10/24/19 08:16 Albumin 4.5 g/dL (3.5-5.0) 10/24/19 08:16 Globulin 4.1 g/dL (1.7-4.1) 10/24/19 08:16 Albumin/Globulin Ratio 1.1 (1.0-2.8) 10/24/19 08:16 - Imaging Additional studies: Procedures CLOSURE SKIN & SUBCUTANEOUS NEC (11/08/09) Injection or infusion of other therapeutic or prophylactic substance (11/19/13) Insertion of endotracheal tube (04/14/10) Intraoperative cholangiogram (10/12/12) Laparoscopic cholecystectomy (10/12/12) Assessment and Plan (1) Iron deficiency anemia due to chronic blood loss Overview: 69-year-old female with history of iron deficiency anemia who has had an excellent response to IV iron. Her metabolic panels pending and will follow up on that result. We discussed the fact that the only way a person can become iron deficient is with blood loss. She has no history of bleeding. She does not recall having a colonoscopy or an upper endoscopy ever. She was referred to Gastroenterology her in July by Dr. Ye but did not get an appointment with them. We discussed the rationale for this referral, and the importance of trying to identify the source of blood loss. I explained it is almost always the gastrointestinal tract in the absence of a clinically apparent bleeding issue. She has had a good response to her IV iron. Will follow up on her post iron sucrose labs. I explained that if she has had enough bleeding to result in iron deficiency on 1 occasion, she is at risk of another and we would want to monitor her labs serially. Accordingly, return appointment will be scheduled here late December when will recheck her labs to make sure that no additional hematologic support is indicated. She had several questions that were answered in detail and I personally spent 25 minutes in today's nwqh-lq-ddli visit with greater than 50% of the time spent in counseling regarding the issues outlined above. - Time Spent with Patient I personally spent 25 minutes in today's wodi-hy-nibt visit with greater than 50% of the time spent in counseling regarding the issues outlined above.
[2019-10-24 09:32] LABS: Ferritin 42 ng/mL (11-264)
--- NOTE | 2020-11-24 12:42 | ONC.SCHED ---
Lab draw orders received from [facility]. Patient does not have a port so they were faxed to [facility].
== END ==
PROVIDERS: Internal Medicine Hematology & Oncology; PCP Family Medicine; Referring Provider Family Medicine; Visit Provider Internal Medicine
DX: D50.0 Iron deficiency anemia secondary to blood loss (chronic) (principal); R63.4 Abnormal weight loss; R63.0 Anorexia; F17.210 Nicotine dependence, cigarettes, uncomplicated; I10 Essential (primary) hypertension
CPT/HCPCS: 36415; 80053; 82728; 83540; 83550; 83615; 85025; 96365; 99204; 99214; J1756

== ENCOUNTER → 2020-01-25 08:19 | Outpatient (CLI) | payer MEDICARE, MEDICAID, SELFPAY ==
[2020-01-25 08:45] LABS: Add Manual Diff / Slide Review NO; Basophils Absolute Auto 0 /uL (0-100); Basophils Percent Auto 0.9 % (0-2); Eosinophils Absolute Auto 0 /uL (0-450); Eosinophils Percent Auto 0.8 % (2-4); Hematocrit 42.1 % (36-46); Hemoglobin 13.4 g/dL (12.0-16.0); Lymphocytes Absolute Auto 800 /uL (1100-4500); Lymphocytes Percent Auto 21.3 % (25-40); Mean Corpuscular HGB Conc 31.9 % (30-36); Mean Corpuscular Hemoglobin 28.3 PG (26-34); Mean Corpuscular Volume 88.6 fL (80-100); Monocytes Absolute Auto 400 /uL (0-900); Monocytes Percent Auto 11.5 % (3-14); Neutrophils Absolute Auto 2500 /uL (1500-7000); Neutrophils Percent Auto 65.5 % (50-75); Platelet Count 96 X10^3/uL (150-400); Red Blood Cell Count 4.75 X10^6/uL (4.0-5.2); Red Cell Distribution Width 17.1 % (11.6-14.8); White Blood Cell Count 3.8 X10^3/uL (4.5-11.0)
[2020-01-25 09:25] LABS: HEMOLYSIS < 15 (0-50); Iron 95 ug/dL (37-170)
[2020-01-25 09:32] LABS: Alanine Aminotransferase 65 IU/L (<35); Albumin 4.4 g/dL (3.5-5.0); Albumin Globulin Ratio 1.1 (1.0-2.8); Alkaline Phosphatase 141 U/L (38-126); Aspartate Aminotransferase 216 IU/L (14-36); BUN Creatinine Ratio 18.4 (6-22); Bilirubin Total 1.4 mg/dL (0.2-1.3); Blood Urea Nitrogen 9 mg/dL (7-17); Calcium 9.7 mg/dL (8.4-10.2); Carbon Dioxide 24 mmol/L (22-32); Chloride 105 mmol/L (98-107); Estimated Glomerular Filt Rate > 60.0 mL/min (>60); Globulin 4.1 g/dL (1.7-4.1); Glucose 97 mg/dL (80-110); HEMOLYSIS < 15 (0-50); Potassium 4.2 mmol/L (3.4-5.1); Sodium 143 mmol/L (137-145); Total Protein 8.5 g/dL (6.3-8.2)
[2020-01-25 09:36] LABS: Percent Iron Saturation 20 % (15-50); Total Iron Binding Capacity 479 ug/dL (265-497); Transferrin 379 mg/dL (206-381)
[2020-01-25 10:02] LABS: Ferritin 33 ng/mL (11-264)
== END ==
PROVIDERS: PCP Family Medicine; Referring Provider Internal Medicine; Visit Provider Internal Medicine
DX: D64.9 Anemia, unspecified (principal)
CPT/HCPCS: 36415; 80053; 82728; 83540; 83550; 85025

== ENCOUNTER 2020-12-09 09:01 | Emergency (ER) | payer MEDICARE, MEDICAID, SELFPAY ==
[2020-12-09] VITALS (8 sets, daily range): BP systolic 96–166; BP diastolic 61–83; PULSE 82–98; RESP 16; TEMP 36.3; O2SAT 93–99; BMI 21.9
[2020-12-09 10:18] LABS: Add Manual Diff / Slide Review NO; Basophils Absolute Auto 0 /uL (0-100); Basophils Percent Auto 0.8 % (0-2); Eosinophils Absolute Auto 0 /uL (0-450); Eosinophils Percent Auto 0.5 % (2-4); Hematocrit 38.7 % (36-46); Hemoglobin 12.2 g/dL (12.0-16.0); Lymphocytes Absolute Auto 800 /uL (1100-4500); Lymphocytes Percent Auto 14.2 % (25-40); Mean Corpuscular HGB Conc 31.6 % (30-36); Mean Corpuscular Hemoglobin 27.1 PG (26-34); Mean Corpuscular Volume 85.6 fL (80-100); Monocytes Absolute Auto 500 /uL (0-900); Monocytes Percent Auto 9.3 % (3-14); Neutrophils Absolute Auto 4300 /uL (1500-7000); Neutrophils Percent Auto 75.2 % (50-75); Platelet Count 145 X10^3/uL (150-400); Red Blood Cell Count 4.52 X10^6/uL (4.0-5.2); Red Cell Distribution Width 17.9 % (11.6-14.8); White Blood Cell Count 5.8 X10^3/uL (4.5-11.0)
[2020-12-09 10:25] LABS: INR 1.5 (0.9-1.3); Prothrombin Time 16.9 SECONDS (10.1-12.7)
[2020-12-09 10:28] LABS: PTT Partial Thromboplastin Tim 39 SECONDS (26.4-36.2)
[2020-12-09 10:36] LABS: Ammonia (NH3) 13 umol/L (9-30)
[2020-12-09 10:38] LABS: Alanine Aminotransferase 13 IU/L (<35); Albumin 3.4 g/dL (3.5-5.0); Albumin Globulin Ratio 0.9 (1.0-2.8); Alkaline Phosphatase 66 U/L (38-126); Aspartate Aminotransferase 30 IU/L (14-36); BUN Creatinine Ratio 24.5 (6-22); Bilirubin Total 2.8 mg/dL (0.2-1.3); Bilirubin Unconjugated 1.7 mg/dL (0.0-1.1); Blood Urea Nitrogen 12 mg/dL (7-17); Calcium 9.2 mg/dL (8.4-10.2); Carbon Dioxide 26 mmol/L (22-32); Chloride 105 mmol/L (98-107); Estimated Glomerular Filt Rate > 60.0 mL/min (>60); Glucose 118 mg/dL (80-110); HEMOLYSIS < 15 (0-50); Lipase 83 U/L (23-300); Potassium 4.4 mmol/L (3.4-5.1); Sodium 138 mmol/L (137-145); Total Protein 7.4 g/dL (6.3-8.2)
[2020-12-09 10:39] LABS: Bacteria Urine None Seen; RBC Urine None Seen (0-5/HPF)
[2020-12-09 10:43] LABS: Appearance Urine UA CLEAR; Bilirubin Urine UA 1+ (NEGATIVE); Color Urine UA ORANGE; Glucose Urine UA TRACE g/dL (Negative); Ketones Urine UA TRACE (NEGATIVE); Leukocyte Esterase Urine UA 1+ (NEGATIVE); Nitrite Urine UA NEGATIVE (Negative); Occult Blood Urine UA NEGATIVE (Negative); Protein Urine UA 1+ (Negative); Specific Gravity Urine UA >=1.030 (1.000-1.035)
[2020-12-09 10:44] LABS: pH Urine UA 5.5 (4.5-8.0)
[2020-12-09 10:50] LABS: Ictotest Urine Negative (Negative); WBC Urine 5-10/HPF (0-5/HPF)
[2020-12-09 10:51] LABS: Culture Indicated Urine Specimen Cultured; Mucus Urine 3+ (Negative); Squamous Epithelial Cell Urine 1-5 /HPF (0-5/HPF)
--- NOTE | 2020-12-09 11:18 | ED.GENADULT ---
HPI - General Adult General Chief complaint: Weakness Stated complaint: Liver CA/Falling when getting up/Stomach Pain Time Seen by Provider: 12/09/20 09:41 Source: patient Mode of arrival: Wheelchair Limitations: no limitations History of Present Illness HPI narrative: Patient is a 70-year-old female. Has reported history of liver cancer. 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 Is seen by oncology. Is not currently undergoing any chemotherapy. Does have a primary doctor. Arrives to the emergency department today for generalized fatigue and weakness. She is with her . Patient has no specific complaints other than she is very tired. The is concerned about her ability to get around the house while he is at work. It does appear that she has declined home health and physical therapy and other things like that in the past. She does have a distended abdomen which has been worsening recently but not acutely worsening. Related Data Home Medications Medication Instructions Recorded Confirmed phenytoin sodium extended 100 mg See Rx Instructions .ROUTE 05/20/17 10/24/19 capsule (Dilantin Extended) .COMPLEX #0 atenolol 50 mg tablet 50 mg PO DAILY 08/30/17 10/24/19 Allergies Allergy/AdvReac Type Severity Reaction Status Date / Time erythromycin base Allergy Unknown Gastrointestinal Verified 08/02/19 13:38 [ERYTHROMYCIN BASE] Upset Review of Systems Constitutional Constitutional: Reports fatigue and Denies fever(s) ENT Ears, Nose, Mouth, and Throat: Denies vertigo and Denies dizziness Cardiovascular Comments: Denies chest pain Respiratory Comments: Denies shortness of breath Gastrointestinal Comments: Distended abdomen Integumentary/Breasts Comments: No rashes Neurologic Neurologic: Denies vertigo and Denies dizziness Endocrine Endocrine: Reports fatigue Hematologic/Lymphatic On Anticoagulants: No Allergic/Immunologic Allergic/Immunologic: Reports system reviewed and no additional complaints, except as documented Patient History Medical History (Updated 12/09/20 @ 13:06 by Yared Momin DO) Chronic back pain History of ectopic Hypertension Surgical History (Updated 10/24/19 @ 09:14 by Jez Hart MD) History of cholecystectomy No pertinent past surgical history Family History Grandmother Hypertension Social History household members: significant other Smoking Status: Former smoker alcohol intake: current Smoking Status: Former smoker alcohol intake frequency: 3 or more drinks per day Alcohol type: hard liquor Substance Use Type: does not use Exam Initial Vital Signs Initial Vital Signs: Vital Signs Temperature 97.4 F L 12/09/20 09:29 Pulse Rate 90 12/09/20 09:29 Respiratory Rate 16 12/09/20 09:29 Blood Pressure 138/61 12/09/20 09:29 Pulse Oximetry 97 12/09/20 09:29 Const General: cooperative and comfortable HENMT Head: normal to inspection Resp Effort & Inspection: normal respiratory effort Cardio Rate: regular rate GI Other: Distended abdomen, soft, tender to palpation diffusely Skin General: no rashes or lesions noted Neuro General: patient alert, patient awake and patient oriented x3 Extrem General: normal to inspection Psych Appearance: grossly normal and well kempt Scores GCS Germán coma scale eye opening: Spontaneous Germán coma scale verbal response: Orientated Germán coma scale motor response: Obey commands Germán coma scale total score: 15 Course Orders Ordered: ED Orders 12/09/20 10:05 Ammonia (NH3) Stat Basic Metabolic Panel Stat Complete Blood Count AUTO DIFF Stat Hepatic (Liver) Panel Stat Lactate (Lactic Acid) Stat Lipase Stat Partial Thromboplastin Time Stat Prothrombin Time INR Stat 12/09/20 10:32 Ictotest Urine Stat Urinalysis and Microscopic Stat Urine Culture Stat 12/09/20 11:18 Consult to FAMILY SPECIALIST - Tip Inserter Stat Vital Signs Vital signs: Vital Signs - 8 hr 12/09/20 09:29 12/09/20 10:29 12/09/20 10:30 Temperature 97.4 F L Pulse Rate 90 98 H 93 H Respiratory Rate 16 Blood Pressure 138/61 166/80 H Pulse Oximetry 97 95 95 12/09/20 11:00 12/09/20 11:30 12/09/20 12:00 Temperature Pulse Rate 82 83 Respiratory Rate Blood Pressure 137/71 119/83 Pulse Oximetry 97 99 12/09/20 12:30 Temperature Pulse Rate 87 Respiratory Rate Blood Pressure 96/69 Pulse Oximetry 97 Medical Decision Making Medical Records Medical records reviewed: Yes I reviewed the patient's medical records. Lab Data Lab results reviewed: Yes I reviewed the patient's lab results. Result diagrams: 12/09/20 10:05 12/09/20 10:05 Labs: Lab Results 12/09/20 12/09/20 12/09/20 Range/Units 10:05 10:05 10:05 WBC 5.8 (4.5-11.0) X10^3/uL RBC 4.52 (4.0-5.2) X10^6/uL Hgb 12.2 (12.0-16.0) g/dL Hct 38.7 (36-46) % MCV 85.6 (80-100) fL MCH 27.1 (26-34) PG MCHC 31.6 (30-36) % RDW 17.9 H (11.6-14.8) % Plt Count 145 L (150-400) X10^3/uL Neut % (Auto) 75.2 H (50-75) % Lymph % (Auto) 14.2 L (25-40) % [place] % (Auto) 9.3 (3-14) % Eos % (Auto) 0.5 L (2-4) % Baso % (Auto) 0.8 (0-2) % Neut # (Auto) 4300 (1555-3551) /uL Lymph # (Auto) 800 L (2520-8885) /uL [place] # (Auto) 500 (0-900) /uL Eos # (Auto) 0 (0-450) /uL Baso # (Auto) 0 (0-100) /uL PT 16.9 H (10.1-12.7) SECONDS INR 1.5 H (0.9-1.3) APTT 39 H D (26.4-36.2) SECONDS Sodium 138 (137-145) mmol/L Potassium 4.4 (3.4-5.1) mmol/L Chloride 105 (98-107) mmol/L Carbon Dioxide 26 (22-32) mmol/L BUN 12 (7-17) mg/dL Creatinine 0.49 L (0.52-1.04) mg/dL Estimated GFR > 60.0 (>60) mL/min BUN/Creatinine Ratio 24.5 H (6-22) Glucose 118 H (80-110) mg/dL Lactate (0.7-2.1) mmol/L Calcium 9.2 (8.4-10.2) mg/dL Total Bilirubin 2.8 H (0.2-1.3) mg/dL Conjugated Bilirubin 0.0 (0.0-0.3) md/dL Unconjugated Bilirubin 1.7 H (0.0-1.1) mg/dL AST 30 (14-36) IU/L ALT 13 (<35) IU/L Alkaline Phosphatase 66 (38-126) U/L Ammonia (9-30) umol/L Total Protein 7.4 (6.3-8.2) g/dL Albumin 3.4 L (3.5-5.0) g/dL Globulin 4.0 (1.7-4.1) g/dL Albumin/Globulin Ratio 0.9 L (1.0-2.8) Lipase 83 (23-300) U/L Urine Color Urine Appearance Urine pH (4.5-8.0) Ur Specific [place] (1.000-1.035) Urine Protein (Negative) Urine Glucose (UA) (Negative) g/dL Urine Ketones (NEGATIVE) Urine Occult Blood (Negative) Urine Nitrate (Negative) Urine Bilirubin (NEGATIVE) Ur Bilirubin Confirm (Negative) Urine Urobilinogen (0.2) E.U./dL Ur Leukocyte Esterase (NEGATIVE) Urine RBC (0-5/HPF) Urine WBC (0-5/HPF) Ur Squamous Epith Cells (0-5/HPF) Urine Bacteria (None) Urine Mucus (Negative) Ur Culture Indicated? 12/09/20 12/09/20 12/09/20 Range/Units 10:05 10:05 10:32 WBC (4.5-11.0) X10^3/uL RBC (4.0-5.2) X10^6/uL Hgb (12.0-16.0) g/dL Hct (36-46) % MCV (80-100) fL MCH (26-34) PG MCHC (30-36) % RDW (11.6-14.8) % Plt Count (150-400) X10^3/uL Neut % (Auto) (50-75) % Lymph % (Auto) (25-40) % [place] % (Auto) (3-14) % Eos % (Auto) (2-4) % Baso % (Auto) (0-2) % Neut # (Auto) (6634-2984) /uL Lymph # (Auto) (8344-5085) /uL [place] # (Auto) (0-900) /uL Eos # (Auto) (0-450) /uL Baso # (Auto) (0-100) /uL PT (10.1-12.7) SECONDS INR (0.9-1.3) APTT (26.4-36.2) SECONDS Sodium (137-145) mmol/L Potassium (3.4-5.1) mmol/L Chloride (98-107) mmol/L Carbon Dioxide (22-32) mmol/L BUN (7-17) mg/dL Creatinine (0.52-1.04) mg/dL Estimated GFR (>60) mL/min BUN/Creatinine Ratio (6-22) Glucose (80-110) mg/dL Lactate 3.0 H (0.7-2.1) mmol/L Calcium (8.4-10.2) mg/dL Total Bilirubin (0.2-1.3) mg/dL Conjugated Bilirubin (0.0-0.3) md/dL Unconjugated Bilirubin (0.0-1.1) mg/dL AST (14-36) IU/L ALT (<35) IU/L Alkaline Phosphatase (38-126) U/L Ammonia 13 (9-30) umol/L Total Protein (6.3-8.2) g/dL Albumin (3.5-5.0) g/dL Globulin (1.7-4.1) g/dL Albumin/Globulin Ratio (1.0-2.8) Lipase (23-300) U/L Urine Color [place] Urine Appearance Clear Urine pH 5.5 (4.5-8.0) Ur Specific [place] >=1.030 H (1.000-1.035) Urine Protein 1+ H (Negative) Urine Glucose (UA) Trace H (Negative) g/dL Urine Ketones Trace H (NEGATIVE) Urine Occult Blood Negative (Negative) Urine Nitrate Negative (Negative) Urine Bilirubin 1+ H (NEGATIVE) Ur Bilirubin Confirm Negative (Negative) Urine Urobilinogen 1.0 (0.2) E.U./dL Ur Leukocyte Esterase 1+ H (NEGATIVE) Urine RBC None seen (0-5/HPF) Urine WBC 5-10/hpf H (0-5/HPF) Ur Squamous Epith Cells 1-5 /hpf (0-5/HPF) Urine Bacteria None seen (None) Urine Mucus 3+ H (Negative) Ur Culture Indicated? Specimen cultured 12/09/20 Range/Units 12:30 WBC (4.5-11.0) X10^3/uL RBC (4.0-5.2) X10^6/uL Hgb (12.0-16.0) g/dL Hct (36-46) % MCV (80-100) fL MCH (26-34) PG MCHC (30-36) % RDW (11.6-14.8) % Plt Count (150-400) X10^3/uL Neut % (Auto) (50-75) % Lymph % (Auto) (25-40) % [place] % (Auto) (3-14) % Eos % (Auto) (2-4) % Baso % (Auto) (0-2) % Neut # (Auto) (9685-4291) /uL Lymph # (Auto) (6269-6067) /uL [place] # (Auto) (0-900) /uL Eos # (Auto) (0-450) /uL Baso # (Auto) (0-100) /uL PT (10.1-12.7) SECONDS INR (0.9-1.3) APTT (26.4-36.2) SECONDS Sodium (137-145) mmol/L Potassium (3.4-5.1) mmol/L Chloride (98-107) mmol/L Carbon Dioxide (22-32) mmol/L BUN (7-17) mg/dL Creatinine (0.52-1.04) mg/dL Estimated GFR (>60) mL/min BUN/Creatinine Ratio (6-22) Glucose (80-110) mg/dL Lactate 2.0 (0.7-2.1) mmol/L Calcium (8.4-10.2) mg/dL Total Bilirubin (0.2-1.3) mg/dL Conjugated Bilirubin (0.0-0.3) md/dL Unconjugated Bilirubin (0.0-1.1) mg/dL AST (14-36) IU/L ALT (<35) IU/L Alkaline Phosphatase (38-126) U/L Ammonia (9-30) umol/L Total Protein (6.3-8.2) g/dL Albumin (3.5-5.0) g/dL Globulin (1.7-4.1) g/dL Albumin/Globulin Ratio (1.0-2.8) Lipase (23-300) U/L Urine Color Urine Appearance Urine pH (4.5-8.0) Ur Specific [place] (1.000-1.035) Urine Protein (Negative) Urine Glucose (UA) (Negative) g/dL Urine Ketones (NEGATIVE) Urine Occult Blood (Negative) Urine Nitrate (Negative) Urine Bilirubin (NEGATIVE) Ur Bilirubin Confirm (Negative) Urine Urobilinogen (0.2) E.U./dL Ur Leukocyte Esterase (NEGATIVE) Urine RBC (0-5/HPF) Urine WBC (0-5/HPF) Ur Squamous Epith Cells (0-5/HPF) Urine Bacteria (None) Urine Mucus (Negative) Ur Culture Indicated? MDM Narrative Medical decision making narrative: Patient is alert oriented x3. Her labs today are either unremarkable or actually better than baseline labs. If they have a scheduled appointment with hematology/oncology artery scheduled. No signs of infection. Patient was seen by social work. No indication for admission to the hospital. They were given resources for home health. The clinic contact her primary doctor for follow-up. They were given return precautions. The expressed understanding and agreement. Discharge Plan Departure Patient Disposition: Home Clinical Impression: Fatigue Instructions: How to Prevent Falls Activity Restrictions/Additional Instructions: I do recommend that you contact your primary doctor for a follow-up. It is important that you have a plan in place as to which he will do if things continue to decline. Return to the emergency department for any new symptoms. Prescriptions: No Action phenytoin sodium extended [Dilantin Extended] 100 MG capsule See Rx Instructions .ROUTE .COMPLEX Qty: 0 RF: 0 atenolol 50 mg Tablet 50 mg PO DAILY RF: 0 Referrals: Elena Carter MD [Primary Care Provider] -
[2020-12-09 12:12] LABS: Reflexed Lactate in 2 Hours Y
--- NOTE | 2020-12-09 13:17 | CM.SWNOTE ---
PASSENGER BOOKING CLERK Note PASSENGER BOOKING CLERK receives consult and enters room to meet with patient and S/O Max. Patient presents to ED today due to concerns for stomach pain, recent GLFs, and generalized weakness. Patient is A/Ox4 and stating that she wants to go home. Patient endorses that stomach pain and weakness started aprox 2 months ago. Patient endorses she does not see PCP with [facility] Carter regularly and would like a new PCP. Patient endorses she sees Oncologist Dr. Ye in [place] at the [facility]. PASSENGER BOOKING CLERK informs patient and that oncologist can also see patients at cancer center in [place]. Patient endorses she had a recent appt with Dr. eY and will see him again on Tuesday. Patient and S/O endorse that patient's son lives on property in a trailer and occasionally assists with cooking and cleaning. S/O endorses concern for patient laying in recliner all day and struggling with mobility. Patient endorses she is able to get up and get to the bathroom on her own but asks son for assistance if he is available. Patient endorses she has lost her appetite and barely eats. Patient endorses her sleep is limited due to discomfort from stomach pain. S/O endorses that he works 12 hour days and patient is often alone, and is wanting to look into caregiver services. PASSENGER BOOKING CLERK identifies that patient has Medicaid insurance. PASSENGER BOOKING CLERK informs patient and S/O that patient should qualify for [facility] caregiving that is typically covered by medicaid. Patient is agreeable to PASSENGER BOOKING CLERK contacting [facility] to set up intake referral for patient. PASSENGER BOOKING CLERK discusses HH and patient declines. S/O endorses that he has uses [facility] before and it was helpful in his rehabilitation after his hospital stay. PASSENGER BOOKING CLERK states that PCP can refer patient for HH at any time during future PCP visits. PASSENGER BOOKING CLERK discusses setting up patient with new PCP to establish care and for ED f/u. Patient is agreeable to this. It is reported by S/O that patient was kicked out of [facility] several years ago due to patient's previous actions. PASSENGER BOOKING CLERK calls Yanely at [facility] (Ph. # [phone]) and provides patient's contact information. Yanely endorses she will call patient and S/O this afternoon for intake. PASSENGER BOOKING CLERK calls [facility] provider line, it is reported that it is unknown if any providers have openings. PASSENGER BOOKING CLERK calls [facility] provider line, it is reported that patient has history of being asked to leave the practice two years ago. After staff reviews patient with sugar house supervisor it is confirmed that patient can be scheduled with PCP ED f/u appt with Dr. Cody on 12/17/20 at 9:15 am at [facility]. PASSENGER BOOKING CLERK reviews the above with patient and S/O who indicate agreement and understanding. PASSENGER BOOKING CLERK discusses reengaging with [facility] on good terms. Patient to d/c when medically clear with S/O, patient to set up caregiver services with [facility] and to f/u with Dr. Cody on 12/17/20. TRUONG Felder
== END 2020-12-09 13:30 | disposition home or self-care (01) ==
PROVIDERS: Emergency Provider Emergency Medicine; PCP Family Medicine; Referring Provider Internal Medicine Hematology & Oncology
DX: R53.83 Other fatigue (principal); C22.9 Malignant neoplasm of liver, not specified as primary or secondary
CPT/HCPCS: 36415; 80048; 80076; 81001; 82140; 83605; 83690; 85025; 85610; 85730; 87086; 99281; 99283

== ENCOUNTER 2020-12-14 15:22 | Observation (INO) | payer MEDICARE, MEDICAID, SELFPAY ==
[2020-12-14] VITALS (24 sets, daily range): BP systolic 116–158; BP diastolic 66–83; PULSE 97–117; RESP 22; TEMP 36.8; O2SAT 89–96; BMI 23.6
[2020-12-14 15:54] LABS: Add Manual Diff / Slide Review NO; Basophils Absolute Auto 0 /uL (0-100); Basophils Percent Auto 0.6 % (0-2); Eosinophils Absolute Auto 100 /uL (0-450); Eosinophils Percent Auto 1.3 % (2-4); Hematocrit 35.9 % (36-46); Hemoglobin 11.4 g/dL (12.0-16.0); Lymphocytes Absolute Auto 1300 /uL (1100-4500); Lymphocytes Percent Auto 19.5 % (25-40); Mean Corpuscular HGB Conc 31.8 % (30-36); Mean Corpuscular Hemoglobin 26.7 PG (26-34); Monocytes Absolute Auto 800 /uL (0-900); Monocytes Percent Auto 12.1 % (3-14); Neutrophils Absolute Auto 4600 /uL (1500-7000); Neutrophils Percent Auto 66.5 % (50-75); Platelet Count 158 X10^3/uL (150-400); Red Blood Cell Count 4.27 X10^6/uL (4.0-5.2); Red Cell Distribution Width 18.1 % (11.6-14.8); White Blood Cell Count 6.9 X10^3/uL (4.5-11.0)
--- NOTE | 2020-12-14 15:55 | ED.SOB ---
HPI - SOB/Dyspnea <Doc Larsen PA-C - Last Filed: 12/14/20 21:12> General Chief Complaint: Abdominal Pain Stated Complaint: SOB Time Seen by Provider: 12/14/20 15:38 Source: patient Mode of arrival: Family Vehicle Limitations: no limitations History of Present Illness HPI Narrative: 70-year-old female with past medical history of HTN, alcohol abuse, anemia, liver masses, reported history of cirrhosis presents to the ED for shortness of breath for 2 days. Patient was seen in the ED on 12/09/2020 for weakness, discharged with PCP follow-up. Patient saw an oncologist 12/12/2020, according to patient oncologist did not think she had cancer, suggested that she get large volume paracentesis. Patient brought in by her who states that her abdominal distension has worsened in the last 2 days. Patient endorses increasing shortness of breath over the last 2 days as well. Patient denies fever, chills, chest pain, nausea, vomiting, constipation, diarrhea. Per patient's , patient's p.o. intake is poor. Patient endorses past history of heavy alcohol use, no alcohol use in the last 2 years. He Patient denies recent leg swelling, immobilization, recent surgeries, history of DVTs. Patient unvaccinated for COVID-19. Denies having prior diagnostic or therapeutic paracentesis. Related Data Home Medications Medication Instructions Recorded Confirmed phenytoin sodium extended 100 mg See Rx Instructions .ROUTE 05/20/17 10/24/19 capsule (Dilantin Extended) .COMPLEX #0 atenolol 50 mg tablet 50 mg PO DAILY 08/30/17 10/24/19 Allergies Allergy/AdvReac Type Severity Reaction Status Date / Time erythromycin base Allergy Unknown Gastrointestinal Verified 12/14/20 15:42 [ERYTHROMYCIN BASE] Upset Review of Systems <Doc Larsen PA-C - Last Filed: 12/14/20 21:12> Constitutional Constitutional: Denies chills, Reports fatigue, Denies fever(s), Denies frequent falls, Denies lethargy and Denies weakness ENT Ears, Nose, Mouth, and Throat: Denies dizziness and Denies throat swelling Cardiovascular Cardiovascular: Denies chest pain, Denies irregular heart rhythm, Denies lightheadedness, Denies palpitations, Reports dyspnea, Reports dyspnea on exertion and Reports orthopnea Respiratory Respiratory: Denies cough, Reports dyspnea, Reports dyspnea on exertion and Denies wheezing Gastrointestinal Gastrointestinal: Denies abdominal pain, Denies change in bowel habits, Denies diarrhea, Denies nausea and Denies vomiting Genitourinary Genitourinary: Denies dysuria Musculoskeletal Musculoskeletal: Denies numbness Integumentary/Breasts Skin/Breast: Denies pruritus, Denies erythema, Denies rash and Denies wounds Neurologic Neurologic: Denies behavioral changes, Denies confusion, Denies dizziness, Denies frequent falls, Denies numbness and Denies weakness Psychiatric Psychiatric: Denies anxiety, Denies behavioral changes, Denies confusion, Denies depression, Denies homicidal ideation and Denies suicidal ideation Endocrine Endocrine: Reports fatigue, Denies flushing and Denies palpitations Hematologic/Lymphatic Hematologic/Lymphatic: Denies easy bruising Allergic/Immunologic Allergic/Immunologic: Denies urticaria, Denies throat swelling and Denies wheezing Patient History <Doc Larsen PA-C - Last Filed: 12/14/20 21:12> Medical History (Updated 12/15/20 @ 00:29 by Thang Childs DO) Chronic back pain History of ectopic Hypertension Surgical History History of cholecystectomy No pertinent past surgical history Family History Grandmother Hypertension Social History household members: significant other Smoking Status: Former smoker alcohol intake: current Smoking Status: Former smoker alcohol intake frequency: 3 or more drinks per day Alcohol type: hard liquor Substance Use Type: does not use Exam <Doc Larsen PA-C - Last Filed: 12/14/20 21:12> Initial Vital Signs Initial Vital Signs: Vital Signs Pulse Oximetry 94 12/14/20 15:27 Const General: cooperative Neck Neck: normal visual inspection, trachea midline, No lymphadenopathy, No midline deformity and No JVD Lymphatic: No lymphedema Chest Chest: normal inspection of the chest Resp Effort & Inspection: normal respiratory effort, able to speak in complete sentences, no respiratory distress and no use of accessory muscles Auscultation: clear to auscultation bilaterally, no rales, no rhonchi and no wheezes Cardio Rate: regular rate Rhythm: regular rhythm Heart Sounds: no click, no gallops, no murmurs and no rubs Pulses: normal peripheral pulses GI Inspection: distended Palpation: soft, No guarding, No pulsatile mass, No tender and ascites Auscultation: normal bowel sounds Other: Markedly distended, ascitic abdomen. No tenderness to palpation. Back/Spine/Pelvis Back: No CVA tenderness Cervical Spine: cervical ROM normal and No pain with cervical ROM Thoracic/Lumbar Spine: thoracic and lumbar spine normal to inspection Skin General: no rashes or lesions noted, No jaundice and No petechiae Neuro General: patient alert, patient oriented x3, gait normal and no focal motor deficits Speech: speech normal Extrem General: full ROM, no clubbing, cyanosis or edema and no calf tenderness Other: Mild bilateral lower extremity edema Psych Appearance: well kempt Mental Status: mental status grossly normal Attitude: cooperative Thought Content: normal and suicidality Judgment: judgment good <Thang Childs DO - Last Filed: 12/15/20 00:29> Initial Vital Signs Initial Vital Signs: Vital Signs Pulse Oximetry 94 12/14/20 15:27 <Thang Childs DO - Last Filed: 12/15/20 00:29> Paracentesis Time Out Performed: Yes Local Anesthetic: lidocaine 1% Amount of anesthesia used (mL): 3 Post Procedure Exam: awake, alert, normal BP, normal HR and normal SpO2 Patient Tolerated Procedure: Well Complications: other (unable to obtain fluid) Course <Doc Larsen PA-C - Last Filed: 12/14/20 21:12> Orders Ordered: ED Orders 12/14/20 15:36 Complete Blood Count AUTO DIFF Stat Comprehensive Metabolic Panel Stat Lipase Stat Partial Thromboplastin Time Stat Prothrombin Time INR Stat 12/14/20 15:46 EKG-12 Lead Stat 12/14/20 15:56 XR chest 2V Stat 12/14/20 17:50 US abdomen limited Stat Acetaminophen (Acetaminophen 325 Mg Tablet) 650 mg PO Q6HR PRN PRN Reason: Fever/Mild Pain (1-3) Naloxone HCl (Naloxone 0.4 Mg/Ml Vial) 0.2 mg IV Q2MIN PRN PRN Reason: Opiate Reversal Ondansetron HCl (Ondansetron 4 Mg/2 Ml Inj) 4 mg IV Q8HR PRN PRN Reason: Nausea And Vomiting Pantoprazole Sodium (Pantoprazole Dr 20 Mg Tablet) 20 mg PO 0600 [facility] Discontinued Medications Lidocaine HCl (Lidocaine 1% (Pf)) 4 ml INJ NOW ONE Stop: 12/14/20 20:03 Last Admin: 12/14/20 20:20 Dose: 4 ml Documented by: SHILPI Pantoprazole Sodium (Pantoprazole 40 Mg Vial) 40 mg IV NOW ONE Stop: 12/14/20 22:15 Vital Signs Vital signs: Vital Signs - 8 hr 12/14/20 16:30 12/14/20 17:00 12/14/20 17:30 Pulse Rate 109 H 108 H 109 H Blood Pressure 145/71 H 136/70 137/71 Pulse Oximetry 94 93 94 12/14/20 18:00 12/14/20 18:30 12/14/20 19:00 Pulse Rate 111 H 111 H 101 H Blood Pressure 149/79 H 149/79 H Pulse Oximetry 94 94 94 12/14/20 19:30 12/14/20 20:00 12/14/20 20:22 Pulse Rate 109 H 105 H 106 H Blood Pressure 141/73 H Pulse Oximetry 92 93 93 12/14/20 20:30 12/14/20 20:39 12/14/20 21:00 Pulse Rate 109 H 105 H 103 H Blood Pressure 142/76 H 134/74 Pulse Oximetry 94 94 94 <Thang Childs, - Last Filed: 12/15/20 00:29> Orders Ordered: ED Orders 12/14/20 15:36 Complete Blood Count AUTO DIFF Stat Comprehensive Metabolic Panel Stat Lipase Stat Partial Thromboplastin Time Stat Prothrombin Time INR Stat 12/14/20 15:46 EKG-12 Lead Stat 12/14/20 15:56 XR chest 2V Stat 12/14/20 17:50 US abdomen limited Stat Acetaminophen (Acetaminophen 325 Mg Tablet) 650 mg PO Q6HR PRN PRN Reason: Fever/Mild Pain (1-3) Naloxone HCl (Naloxone 0.4 Mg/Ml Vial) 0.2 mg IV Q2MIN PRN PRN Reason: Opiate Reversal Ondansetron HCl (Ondansetron 4 Mg/2 Ml Inj) 4 mg IV Q8HR PRN PRN Reason: Nausea And Vomiting Pantoprazole Sodium (Pantoprazole Dr 20 Mg Tablet) 20 mg PO 0600 [facility] Discontinued Medications Lidocaine HCl (Lidocaine 1% (Pf)) 4 ml INJ NOW ONE Stop: 12/14/20 20:03 Last Admin: 12/14/20 20:20 Dose: 4 ml Documented by: SHILPI Pantoprazole Sodium (Pantoprazole 40 Mg Vial) 40 mg IV NOW ONE Stop: 12/14/20 22:15 Vital Signs Vital signs: Vital Signs - 8 hr 12/14/20 16:30 12/14/20 17:00 12/14/20 17:30 Pulse Rate 109 H 108 H 109 H Blood Pressure 145/71 H 136/70 137/71 Pulse Oximetry 94 93 94 12/14/20 18:00 12/14/20 18:30 12/14/20 19:00 Pulse Rate 111 H 111 H 101 H Blood Pressure 149/79 H 149/79 H Pulse Oximetry 94 94 94 12/14/20 19:30 12/14/20 20:00 12/14/20 20:22 Pulse Rate 109 H 105 H 106 H Blood Pressure 141/73 H Pulse Oximetry 92 93 93 12/14/20 20:30 12/14/20 20:39 12/14/20 21:00 Pulse Rate 109 H 105 H 103 H Blood Pressure 142/76 H 134/74 Pulse Oximetry 94 94 94 MDM - SOB/Dyspnea <Doc Larsen PA-C - Last Filed: 12/14/20 21:12> Medical Records Attestation: I reviewed the patient's medical records. Lab Data Attestation: I reviewed the patient's lab results. Lab results narrative: Labs WNL, unchanged from 12/09/2020 Result diagrams: 12/14/20 15:36 12/14/20 15:36 Labs: Lab Results 12/14/20 12/14/20 12/14/20 Range/Units 15:34 15:36 15:36 WBC 6.9 (4.5-11.0) X10^3/uL RBC 4.27 (4.0-5.2) X10^6/uL Hgb 11.4 L (12.0-16.0) g/dL Hct 35.9 L (36-46) % MCV 84.0 (80-100) fL MCH 26.7 (26-34) PG MCHC 31.8 (30-36) % RDW 18.1 H (11.6-14.8) % Plt Count 158 (150-400) X10^3/uL Neut % (Auto) 66.5 (50-75) % Lymph % (Auto) 19.5 L (25-40) % [place] % (Auto) 12.1 (3-14) % Eos % (Auto) 1.3 L (2-4) % Baso % (Auto) 0.6 (0-2) % Neut # (Auto) 4600 (0364-1844) /uL Lymph # (Auto) 1300 (2764-5862) /uL [place] # (Auto) 800 (0-900) /uL Eos # (Auto) 100 (0-450) /uL Baso # (Auto) 0 (0-100) /uL PT (10.1-12.7) SECONDS INR (0.9-1.3) APTT (26.4-36.2) SECONDS Sodium 137 (137-145) mmol/L Potassium 4.1 (3.4-5.1) mmol/L Chloride 106 (98-107) mmol/L Carbon Dioxide 25 (22-32) mmol/L BUN 12 (7-17) mg/dL Creatinine 0.60 (0.52-1.04) mg/dL Estimated GFR > 60.0 (>60) mL/min BUN/Creatinine Ratio 20.0 (6-22) Glucose 122 H (80-110) mg/dL Calcium 8.7 (8.4-10.2) mg/dL Magnesium (1.6-2.3) mg/dL Iron 22 L (37-170) ug/dL TIBC 290 (265-497) ug/dL % Saturation 8 L (15-50) % Transferrin 220 (206-381) mg/dL Ferritin (11-264) ng/mL Total Bilirubin 1.4 H (0.2-1.3) mg/dL AST 29 (14-36) IU/L ALT 13 (<35) IU/L Alkaline Phosphatase 80 (38-126) U/L NT-Pro-B Natriuret Pep (<125) pg/mL Total Protein 6.7 (6.3-8.2) g/dL Albumin 3.0 L (3.5-5.0) g/dL Globulin 3.7 (1.7-4.1) g/dL Albumin/Globulin Ratio 0.8 L (1.0-2.8) Triglycerides (35-150) mg/dL Cholesterol (140-199) mg/dL LDL Cholesterol, Calc (<100) mg/dL HDL Cholesterol (40-60) mg/dL Lipase 109 (23-300) U/L Vitamin B12 (239-931) pg/mL Procalcitonin (<0.5) ng/mL Chlamy pneumoniae PCR (Not Detect) Adenovirus (PCR) (Not Detect) B. pertussis DNA (PCR) (Not Detecte) B.parapertussis DNA PCR (Not Detecte) Coronavirus OC43 (PCR) (Not Detect) Coronavirus HKU1 (PCR) (Not Detect) Coronavirus 229E (PCR) (Not Detect) SARS-CoV-2 (PCR) (Negative) Coronavirus NL63 (PCR) (Not Detect) Human Metapneumovir PCR (Not Detect) Influenza Type A (PCR) (Not Detect) Influenza Type B (PCR) (Not Detect) M. pneumoniae (PCR) (Not Detect) Parainfluenza 1 (PCR) (Not Detect) Parainfluenza 2 (PCR) (Not Detect) Parainfluenza 3 (PCR) (Not Detect) Parainfluenza 4 (PCR) (Not Detect) RSV (PCR) (Not Detect) Entero/Rhino (PCR) (Not Detect) 12/14/20 12/14/20 12/14/20 Range/Units 15:36 15:36 15:38 WBC (4.5-11.0) X10^3/uL RBC (4.0-5.2) X10^6/uL Hgb (12.0-16.0) g/dL Hct (36-46) % MCV (80-100) fL MCH (26-34) PG MCHC (30-36) % RDW (11.6-14.8) % Plt Count (150-400) X10^3/uL Neut % (Auto) (50-75) % Lymph % (Auto) (25-40) % [place] % (Auto) (3-14) % Eos % (Auto) (2-4) % Baso % (Auto) (0-2) % Neut # (Auto) (9258-3999) /uL Lymph # (Auto) (7038-7367) /uL [place] # (Auto) (0-900) /uL Eos # (Auto) (0-450) /uL Baso # (Auto) (0-100) /uL PT 16.7 H (10.1-12.7) SECONDS INR 1.5 H (0.9-1.3) APTT 37 H (26.4-36.2) SECONDS Sodium (137-145) mmol/L Potassium (3.4-5.1) mmol/L Chloride (98-107) mmol/L Carbon Dioxide (22-32) mmol/L BUN (7-17) mg/dL Creatinine (0.52-1.04) mg/dL Estimated GFR (>60) mL/min BUN/Creatinine Ratio (6-22) Glucose (80-110) mg/dL Calcium (8.4-10.2) mg/dL Magnesium 2.3 (1.6-2.3) mg/dL Iron (37-170) ug/dL TIBC (265-497) ug/dL % Saturation (15-50) % Transferrin (206-381) mg/dL Ferritin 20 (11-264) ng/mL Total Bilirubin (0.2-1.3) mg/dL AST (14-36) IU/L ALT (<35) IU/L Alkaline Phosphatase (38-126) U/L NT-Pro-B Natriuret Pep 143 H (<125) pg/mL Total Protein (6.3-8.2) g/dL Albumin (3.5-5.0) g/dL Globulin (1.7-4.1) g/dL Albumin/Globulin Ratio (1.0-2.8) Triglycerides 109 (35-150) mg/dL Cholesterol 123 L (140-199) mg/dL LDL Cholesterol, Calc 70 (<100) mg/dL HDL Cholesterol 31 L (40-60) mg/dL Lipase (23-300) U/L Vitamin B12 892 (239-931) pg/mL Procalcitonin 0.08 (<0.5) ng/mL Chlamy pneumoniae PCR (Not Detect) Adenovirus (PCR) (Not Detect) B. pertussis DNA (PCR) (Not Detecte) B.parapertussis DNA PCR (Not Detecte) Coronavirus OC43 (PCR) (Not Detect) Coronavirus HKU1 (PCR) (Not Detect) Coronavirus 229E (PCR) (Not Detect) SARS-CoV-2 (PCR) Negative (Negative) Coronavirus NL63 (PCR) (Not Detect) Human Metapneumovir PCR (Not Detect) Influenza Type A (PCR) (Not Detect) Influenza Type B (PCR) (Not Detect) M. pneumoniae (PCR) (Not Detect) Parainfluenza 1 (PCR) (Not Detect) Parainfluenza 2 (PCR) (Not Detect) Parainfluenza 3 (PCR) (Not Detect) Parainfluenza 4 (PCR) (Not Detect) RSV (PCR) (Not Detect) Entero/Rhino (PCR) (Not Detect) 12/14/20 Range/Units 15:38 WBC (4.5-11.0) X10^3/uL RBC (4.0-5.2) X10^6/uL Hgb (12.0-16.0) g/dL Hct (36-46) % MCV (80-100) fL MCH (26-34) PG MCHC (30-36) % RDW (11.6-14.8) % Plt Count (150-400) X10^3/uL Neut % (Auto) (50-75) % Lymph % (Auto) (25-40) % [place] % (Auto) (3-14) % Eos % (Auto) (2-4) % Baso % (Auto) (0-2) % Neut # (Auto) (4023-1513) /uL Lymph # (Auto) (2461-3576) /uL [place] # (Auto) (0-900) /uL Eos # (Auto) (0-450) /uL Baso # (Auto) (0-100) /uL PT (10.1-12.7) SECONDS INR (0.9-1.3) APTT (26.4-36.2) SECONDS Sodium (137-145) mmol/L Potassium (3.4-5.1) mmol/L Chloride (98-107) mmol/L Carbon Dioxide (22-32) mmol/L BUN (7-17) mg/dL Creatinine (0.52-1.04) mg/dL Estimated GFR (>60) mL/min BUN/Creatinine Ratio (6-22) Glucose (80-110) mg/dL Calcium (8.4-10.2) mg/dL Magnesium (1.6-2.3) mg/dL Iron (37-170) ug/dL TIBC (265-497) ug/dL % Saturation (15-50) % Transferrin (206-381) mg/dL Ferritin (11-264) ng/mL Total Bilirubin (0.2-1.3) mg/dL AST (14-36) IU/L ALT (<35) IU/L Alkaline Phosphatase (38-126) U/L NT-Pro-B Natriuret Pep (<125) pg/mL Total Protein (6.3-8.2) g/dL Albumin (3.5-5.0) g/dL Globulin (1.7-4.1) g/dL Albumin/Globulin Ratio (1.0-2.8) Triglycerides (35-150) mg/dL Cholesterol (140-199) mg/dL LDL Cholesterol, Calc (<100) mg/dL HDL Cholesterol (40-60) mg/dL Lipase (23-300) U/L Vitamin B12 (239-931) pg/mL Procalcitonin (<0.5) ng/mL Chlamy pneumoniae PCR Not detected (Not Detect) Adenovirus (PCR) Not detected (Not Detect) B. pertussis DNA (PCR) Not detected (Not Detecte) B.parapertussis DNA PCR Not detected (Not Detecte) Coronavirus OC43 (PCR) Not detected (Not Detect) Coronavirus HKU1 (PCR) Not detected (Not Detect) Coronavirus 229E (PCR) Not detected (Not Detect) SARS-CoV-2 (PCR) Not Reportable (Negative) Coronavirus NL63 (PCR) Not detected (Not Detect) Human Metapneumovir PCR Not detected (Not Detect) Influenza Type A (PCR) Not detected (Not Detect) Influenza Type B (PCR) Not detected (Not Detect) M. pneumoniae (PCR) Not detected (Not Detect) Parainfluenza 1 (PCR) Not detected (Not Detect) Parainfluenza 2 (PCR) Not detected (Not Detect) Parainfluenza 3 (PCR) Not detected (Not Detect) Parainfluenza 4 (PCR) Not detected (Not Detect) RSV (PCR) Not detected (Not Detect) Entero/Rhino (PCR) Not detected (Not Detect) Imaging Data Chest x-ray: Radiologist's Impression: PROCEDURE: XR CHEST 2V INDICATIONS: SOB TECHNIQUE: 2 views of the chest were acquired. COMPARISON: [facility], , XR CHEST 1V, 08/02/2019, 14:02. FINDINGS: Surgical changes and devices: None. Lungs and pleura: Moderate left pleural effusion with associated passive atelectasis. No pneumothorax. Right lung is clear. Mediastinum: Cardiomediastinal contours are largely obscured by presence of the effusion on the left. Bones and chest wall: No suspicious bony abnormalities. Soft tissues appear unremarkable. IMPRESSION: Moderate left pleural effusion. Dictated by: Augustine Ray M.D. on 12/14/2020 at 15:25 Approved by: Augustine Ray M.D. on 12/14/2020 at 15:27 US - abdomen: Radiologist's Impression: PROCEDURE: US ABDOMEN LIMITED INDICATIONS: SHARPIE CHARANJIT FOR PARACENTESIS TECHNIQUE: Real-time focused scanning was performed of the abdomen, with image documentation. COMPARISON: None. FINDINGS: Large amount of ascites identified. Skin marked for paracentesis using ultrasound guidance. IMPRESSION: Access site for paracentesis localized using ultrasound guidance. Dictated by: Vanessa Collins MD, PhD on 12/14/2020 at 18:40 Approved by: Vanessa Collins MD, PhD on 12/14/2020 at 18:40 ECG Data Attestation: I personally reviewed and interpreted this ECG as follows: Interpretation: Sinus tachycardia 111. Low votage QRS MDM Narrative Medical decision making narrative: 70-year-old female with past medical history of alcohol abuse, anemia, liver masses, reported history of cirrhosis presents to the ED for shortness of breath for 2 days. Concern for worsening ascites versus is BP versus ACS versus pneumonia versus COVID-19 infection. Will order EKG, chest x-ray, labs, troponin, coags. Unlikely PE given risk factors and history. Will consider paracentesis, pending coags. Will reassess. Dispo dependent on the results of workup. <Thang Childs, - Last Filed: 12/15/20 00:29> Lab Data Labs: Lab Results 12/14/20 12/14/20 12/14/20 Range/Units 15:34 15:36 15:36 WBC 6.9 (4.5-11.0) X10^3/uL RBC 4.27 (4.0-5.2) X10^6/uL Hgb 11.4 L (12.0-16.0) g/dL Hct 35.9 L (36-46) % MCV 84.0 (80-100) fL MCH 26.7 (26-34) PG MCHC 31.8 (30-36) % RDW 18.1 H (11.6-14.8) % Plt Count 158 (150-400) X10^3/uL Neut % (Auto) 66.5 (50-75) % Lymph % (Auto) 19.5 L (25-40) % [place] % (Auto) 12.1 (3-14) % Eos % (Auto) 1.3 L (2-4) % Baso % (Auto) 0.6 (0-2) % Neut # (Auto) 4600 (7777-9064) /uL Lymph # (Auto) 1300 (1703-9233) /uL [place] # (Auto) 800 (0-900) /uL Eos # (Auto) 100 (0-450) /uL Baso # (Auto) 0 (0-100) /uL PT (10.1-12.7) SECONDS INR (0.9-1.3) APTT (26.4-36.2) SECONDS Sodium 137 (137-145) mmol/L Potassium 4.1 (3.4-5.1) mmol/L Chloride 106 (98-107) mmol/L Carbon Dioxide 25 (22-32) mmol/L BUN 12 (7-17) mg/dL Creatinine 0.60 (0.52-1.04) mg/dL Estimated GFR > 60.0 (>60) mL/min BUN/Creatinine Ratio 20.0 (6-22) Glucose 122 H (80-110) mg/dL Calcium 8.7 (8.4-10.2) mg/dL Magnesium (1.6-2.3) mg/dL Iron 22 L (37-170) ug/dL TIBC 290 (265-497) ug/dL % Saturation 8 L (15-50) % Transferrin 220 (206-381) mg/dL Ferritin (11-264) ng/mL Total Bilirubin 1.4 H (0.2-1.3) mg/dL AST 29 (14-36) IU/L ALT 13 (<35) IU/L Alkaline Phosphatase 80 (38-126) U/L NT-Pro-B Natriuret Pep (<125) pg/mL Total Protein 6.7 (6.3-8.2) g/dL Albumin 3.0 L (3.5-5.0) g/dL Globulin 3.7 (1.7-4.1) g/dL Albumin/Globulin Ratio 0.8 L (1.0-2.8) Triglycerides (35-150) mg/dL Cholesterol (140-199) mg/dL LDL Cholesterol, Calc (<100) mg/dL HDL Cholesterol (40-60) mg/dL Lipase 109 (23-300) U/L Vitamin B12 (239-931) pg/mL Procalcitonin (<0.5) ng/mL Chlamy pneumoniae PCR (Not Detect) Adenovirus (PCR) (Not Detect) B. pertussis DNA (PCR) (Not Detecte) B.parapertussis DNA PCR (Not Detecte) Coronavirus OC43 (PCR) (Not Detect) Coronavirus HKU1 (PCR) (Not Detect) Coronavirus 229E (PCR) (Not Detect) SARS-CoV-2 (PCR) (Negative) Coronavirus NL63 (PCR) (Not Detect) Human Metapneumovir PCR (Not Detect) Influenza Type A (PCR) (Not Detect) Influenza Type B (PCR) (Not Detect) M. pneumoniae (PCR) (Not Detect) Parainfluenza 1 (PCR) (Not Detect) Parainfluenza 2 (PCR) (Not Detect) Parainfluenza 3 (PCR) (Not Detect) Parainfluenza 4 (PCR) (Not Detect) RSV (PCR) (Not Detect) Entero/Rhino (PCR) (Not Detect) 12/14/20 12/14/20 12/14/20 Range/Units 15:36 15:36 15:38 WBC (4.5-11.0) X10^3/uL RBC (4.0-5.2) X10^6/uL Hgb (12.0-16.0) g/dL Hct (36-46) % MCV (80-100) fL MCH (26-34) PG MCHC (30-36) % RDW (11.6-14.8) % Plt Count (150-400) X10^3/uL Neut % (Auto) (50-75) % Lymph % (Auto) (25-40) % [place] % (Auto) (3-14) % Eos % (Auto) (2-4) % Baso % (Auto) (0-2) % Neut # (Auto) (4192-7085) /uL Lymph # (Auto) (2308-2320) /uL [place] # (Auto) (0-900) /uL Eos # (Auto) (0-450) /uL Baso # (Auto) (0-100) /uL PT 16.7 H (10.1-12.7) SECONDS INR 1.5 H (0.9-1.3) APTT 37 H (26.4-36.2) SECONDS Sodium (137-145) mmol/L Potassium (3.4-5.1) mmol/L Chloride (98-107) mmol/L Carbon Dioxide (22-32) mmol/L BUN (7-17) mg/dL Creatinine (0.52-1.04) mg/dL Estimated GFR (>60) mL/min BUN/Creatinine Ratio (6-22) Glucose (80-110) mg/dL Calcium (8.4-10.2) mg/dL Magnesium 2.3 (1.6-2.3) mg/dL Iron (37-170) ug/dL TIBC (265-497) ug/dL % Saturation (15-50) % Transferrin (206-381) mg/dL Ferritin 20 (11-264) ng/mL Total Bilirubin (0.2-1.3) mg/dL AST (14-36) IU/L ALT (<35) IU/L Alkaline Phosphatase (38-126) U/L NT-Pro-B Natriuret Pep 143 H (<125) pg/mL Total Protein (6.3-8.2) g/dL Albumin (3.5-5.0) g/dL Globulin (1.7-4.1) g/dL Albumin/Globulin Ratio (1.0-2.8) Triglycerides 109 (35-150) mg/dL Cholesterol 123 L (140-199) mg/dL LDL Cholesterol, Calc 70 (<100) mg/dL HDL Cholesterol 31 L (40-60) mg/dL Lipase (23-300) U/L Vitamin B12 892 (239-931) pg/mL Procalcitonin 0.08 (<0.5) ng/mL Chlamy pneumoniae PCR (Not Detect) Adenovirus (PCR) (Not Detect) B. pertussis DNA (PCR) (Not Detecte) B.parapertussis DNA PCR (Not Detecte) Coronavirus OC43 (PCR) (Not Detect) Coronavirus HKU1 (PCR) (Not Detect) Coronavirus 229E (PCR) (Not Detect) SARS-CoV-2 (PCR) Negative (Negative) Coronavirus NL63 (PCR) (Not Detect) Human Metapneumovir PCR (Not Detect) Influenza Type A (PCR) (Not Detect) Influenza Type B (PCR) (Not Detect) M. pneumoniae (PCR) (Not Detect) Parainfluenza 1 (PCR) (Not Detect) Parainfluenza 2 (PCR) (Not Detect) Parainfluenza 3 (PCR) (Not Detect) Parainfluenza 4 (PCR) (Not Detect) RSV (PCR) (Not Detect) Entero/Rhino (PCR) (Not Detect) 12/14/20 Range/Units 15:38 WBC (4.5-11.0) X10^3/uL RBC (4.0-5.2) X10^6/uL Hgb (12.0-16.0) g/dL Hct (36-46) % MCV (80-100) fL MCH (26-34) PG MCHC (30-36) % RDW (11.6-14.8) % Plt Count (150-400) X10^3/uL Neut % (Auto) (50-75) % Lymph % (Auto) (25-40) % [place] % (Auto) (3-14) % Eos % (Auto) (2-4) % Baso % (Auto) (0-2) % Neut # (Auto) (3144-2578) /uL Lymph # (Auto) (6497-2320) /uL [place] # (Auto) (0-900) /uL Eos # (Auto) (0-450) /uL Baso # (Auto) (0-100) /uL PT (10.1-12.7) SECONDS INR (0.9-1.3) APTT (26.4-36.2) SECONDS Sodium (137-145) mmol/L Potassium (3.4-5.1) mmol/L Chloride (98-107) mmol/L Carbon Dioxide (22-32) mmol/L BUN (7-17) mg/dL Creatinine (0.52-1.04) mg/dL Estimated GFR (>60) mL/min BUN/Creatinine Ratio (6-22) Glucose (80-110) mg/dL Calcium (8.4-10.2) mg/dL Magnesium (1.6-2.3) mg/dL Iron (37-170) ug/dL TIBC (265-497) ug/dL % Saturation (15-50) % Transferrin (206-381) mg/dL Ferritin (11-264) ng/mL Total Bilirubin (0.2-1.3) mg/dL AST (14-36) IU/L ALT (<35) IU/L Alkaline Phosphatase (38-126) U/L NT-Pro-B Natriuret Pep (<125) pg/mL Total Protein (6.3-8.2) g/dL Albumin (3.5-5.0) g/dL Globulin (1.7-4.1) g/dL Albumin/Globulin Ratio (1.0-2.8) Triglycerides (35-150) mg/dL Cholesterol (140-199) mg/dL LDL Cholesterol, Calc (<100) mg/dL HDL Cholesterol (40-60) mg/dL Lipase (23-300) U/L Vitamin B12 (239-931) pg/mL Procalcitonin (<0.5) ng/mL Chlamy pneumoniae PCR Not detected (Not Detect) Adenovirus (PCR) Not detected (Not Detect) B. pertussis DNA (PCR) Not detected (Not Detecte) B.parapertussis DNA PCR Not detected (Not Detecte) Coronavirus OC43 (PCR) Not detected (Not Detect) Coronavirus HKU1 (PCR) Not detected (Not Detect) Coronavirus 229E (PCR) Not detected (Not Detect) SARS-CoV-2 (PCR) Not Reportable (Negative) Coronavirus NL63 (PCR) Not detected (Not Detect) Human Metapneumovir PCR Not detected (Not Detect) Influenza Type A (PCR) Not detected (Not Detect) Influenza Type B (PCR) Not detected (Not Detect) M. pneumoniae (PCR) Not detected (Not Detect) Parainfluenza 1 (PCR) Not detected (Not Detect) Parainfluenza 2 (PCR) Not detected (Not Detect) Parainfluenza 3 (PCR) Not detected (Not Detect) Parainfluenza 4 (PCR) Not detected (Not Detect) RSV (PCR) Not detected (Not Detect) Entero/Rhino (PCR) Not detected (Not Detect) Discharge Plan Departure Patient Disposition: Admitted As Inpatient Clinical Impression: Ascites, Acute dyspnea Admit Date/Time: 12/14/20 21:08 Admit Provider: Tomasa Mishra
[2020-12-14 15:59] LABS: Alanine Aminotransferase 13 IU/L (<35); Albumin Globulin Ratio 0.8 (1.0-2.8); Alkaline Phosphatase 80 U/L (38-126); Aspartate Aminotransferase 29 IU/L (14-36); Bilirubin Total 1.4 mg/dL (0.2-1.3); Blood Urea Nitrogen 12 mg/dL (7-17); Calcium 8.7 mg/dL (8.4-10.2); Carbon Dioxide 25 mmol/L (22-32); Chloride 106 mmol/L (98-107); Estimated Glomerular Filt Rate > 60.0 mL/min (>60); Globulin 3.7 g/dL (1.7-4.1); Glucose 122 mg/dL (80-110); HEMOLYSIS < 15 (0-50); Lipase 109 U/L (23-300); Potassium 4.1 mmol/L (3.4-5.1); Sodium 137 mmol/L (137-145); Total Protein 6.7 g/dL (6.3-8.2)
[2020-12-14 16:05] LABS: INR 1.5 (0.9-1.3); Prothrombin Time 16.7 SECONDS (10.1-12.7)
[2020-12-14 16:07] LABS: PTT Partial Thromboplastin Tim 37 SECONDS (26.4-36.2)
[2020-12-14 16:42] LABS: COVID-19 CEPHEID PCR (VTM/NP) Negative (Negative)
--- NOTE | 2020-12-14 17:50 | DI.US.S_ITS ---
PROCEDURE: US ABDOMEN LIMITED INDICATIONS: SHARPIE CHARANJIT FOR PARACENTESIS TECHNIQUE: Real-time focused scanning was performed of the abdomen, with image documentation. COMPARISON: None. FINDINGS: Large amount of ascites identified. Skin marked for paracentesis using ultrasound guidance. IMPRESSION: Access site for paracentesis localized using ultrasound guidance. Dictated by: Vanessa Collins MD, PhD on 12/14/2020 at 18:40 Approved by: Vanessa Collins MD, PhD on 12/14/2020 at 18:40
[2020-12-14] MEDS: LIDOCAINE 1% (PF) 4 ML INJ (20:20)
--- NOTE | 2020-12-14 22:37 | PC.NURSE ---
Per doctor's order, O2 was applied at 2.
[2020-12-14 22:45] LABS: HEMOLYSIS < 15 (0-50); Iron 22 ug/dL (37-170)
[2020-12-14 22:47] LABS: Cholesterol 123 mg/dL (140-199); HDL Cholesterol 31 mg/dL (40-60); LDL Cholesterol Calculated 70 mg/dL (<100); Magnesium 2.3 mg/dL (1.6-2.3); Triglycerides 109 mg/dL (35-150)
[2020-12-14 22:56] LABS: Percent Iron Saturation 8 % (15-50); Total Iron Binding Capacity 290 ug/dL (265-497); Transferrin 220 mg/dL (206-381)
[2020-12-14 22:59] LABS: NT-proBNP (BNP-Adult 18+) 143 pg/mL (<125)
[2020-12-14 23:05] LABS: Ammonia (NH3) 11 umol/L (9-30)
[2020-12-14 23:06] LABS: Procalcitonin 0.08 ng/mL (<0.5)
--- NOTE | 2020-12-14 23:07 | PC.NURSE ---
RN for report with another patient, RN to call back for report
[2020-12-14 23:24] LABS: Ferritin 20 ng/mL (11-264)
[2020-12-14 23:27] LABS: D Dimer 1731 ng/mL (<230)
[2020-12-14 23:38] LABS: Vitamin B12 892 pg/mL (239-931)
[2020-12-15] VITALS (12 sets, daily range): BP systolic 115–141; BP diastolic 54–75; PULSE 86–98; RESP 15–18; TEMP 36.4–36.7; O2SAT 93–98; BMI 22.7
--- NOTE | 2020-12-15 | DI.US.S_ITS ---
PROCEDURE: US PARACENTESIS INDICATIONS: THERAPEUTIC PARACENTESIS FOR ASCITES TECHNIQUE: The indications, alternatives, benefits, risks, and complications of the procedure were explained to the patient. Written informed consent was obtained and placed in the chart. The abdomen and pelvis were examined sonographically, and an appropriate site was chosen for paracentesis. The skin was prepared and draped in the usual sterile fashion, and 1% lidocaine was infiltrated from the skin down through the peritoneal surface. A 19-gauge catheter-covered needle was then introduced into the peritoneal space, the catheter was advanced and the needle was withdrawn, and thereafter peritoneal fluid was withdrawn. The catheter was then removed and a dressing was applied. The fluid was discarded if the clinician did not order diagnostic testing of the fluid. COMPARISON: None. FINDINGS: Access site: Midline Needle: One-Step centesis catheter with introducer needle. Fluid volume and description: 5000 cc of serous ascites Fluid sent for diagnostic testing: Not requested Medications: 1% lidocaine for local anaesthesia. Complications: None. IMPRESSION: Successful ultrasound-guided paracentesis. Dictated by: Jass Roth M.D. on 12/15/2020 at 13:19 Approved by: Jass Roth M.D. on 12/15/2020 at 13:20
[2020-12-15 00:10] LABS: Adenovirus Not Detected (Not Detect); B. parapertussis Not Detected (Not Detecte); Bordetella pertussis Not Detected (Not Detecte); Chlamydophila pneumoniae Not Detected (Not Detect); Coronavirus 229E Not Detected (Not Detect); Coronavirus HKU1 Not Detected (Not Detect); Coronavirus NL 63 Not Detected (Not Detect); Coronavirus OC43 Not Detected (Not Detect); Human Metapneumovirus Not Detected (Not Detect); Human Rhinovirus/Enterovirus Not Detected (Not Detect); Influenza A Not Detected (Not Detect); Influenza B Not Detected (Not Detect); Mycoplasma pneumoniae Not Detected (Not Detect); Parainfluenza Virus 1 Not Detected (Not Detect); Parainfluenza Virus 2 Not Detected (Not Detect); Parainfluenza Virus 3 Not Detected (Not Detect); Parainfluenza Virus 4 Not Detected (Not Detect); Respiratory Syncytial Virus Not Detected (Not Detect)
[2020-12-15] MEDS: PANTOPRAZOLE 40 MG VIAL IV (00:31)
--- NOTE | 2020-12-15 01:00 | PC.ADMIT ---
DECLINED, BETWEEN Admission Note: Patient arrived to the unit via stretcher at 0010. Patient is A/O, on 3L NC, and denies any pain or SOB at this time. Patient VS are stable. Patient was oriented to call light, room, fall precautions, and call light was left within reach. Home medications were reviewed and updated in the chart. No other requests at this time. The patient,Flor Santos,70 y/o, was given written information regarding hospital policies, unit procedures and contact persons. Patient's smoking status: Former smoker. Vital Signs - 8 hr 12/14/20 19:30 12/14/20 20:00 12/14/20 20:22 Temperature Pulse Rate 109 H 105 H 106 H Respiratory Rate Blood Pressure 141/73 H Pulse Oximetry 92 93 93 12/14/20 20:30 12/14/20 20:39 12/14/20 21:00 Temperature Pulse Rate 109 H 105 H 103 H Respiratory Rate Blood Pressure 142/76 H 134/74 Pulse Oximetry 94 94 94 12/14/20 21:30 12/14/20 22:00 12/14/20 22:10 Temperature Pulse Rate 102 H 103 H 104 H Respiratory Rate Blood Pressure 129/67 133/72 Pulse Oximetry 93 93 93 12/14/20 22:30 12/14/20 22:31 12/14/20 23:00 Temperature Pulse Rate 99 H 98 H Respiratory Rate Blood Pressure 143/67 H 125/68 Pulse Oximetry 89 L 95 12/14/20 23:30 12/15/20 00:10 12/15/20 00:48 Temperature 97.7 F Pulse Rate 97 H 95 H Respiratory Rate 18 Blood Pressure 116/66 123/75 Pulse Oximetry 94 96 97
--- NOTE | 2020-12-15 03:58 | PM.HP.1 ---
History of Present Illness History of Present Illness Date Patient Seen: 12/14/20 Time Patient Seen: 22:14 Chief complaint: SOB Narrative: Patient is a 70-year-old female Flor Santos with past medical history of HTN, alcohol abuse in reported remission, iron deficiency anemia due to chronic blood loss requiring multiple IV iron infusions, alcoholic cirrhosis presented to the ED for shortness of breath, increased fatigue x 2 days, increasing abd distention for 2 months. Patient was seen in the ED on 12/09/2020 for weakness, discharged with PCP follow-up. Patient endorses increasing shortness of breath over the last 2 days, patient is unable to speak in complete sentences without shortness of breath. Patient denies fever, chills, chest pain, nausea, vomiting, constipation, diarrhea, recent illness injury, or trauma. Patient reports poor appetite, decreased appetite and weight loss which is not reflected in chart. Patient endorses past history of heavy alcohol use, no alcohol use in the last 2 years, though Oncology note 10/2019 states patient was still drinking. Patient denies recent leg swelling, immobilization, recent surgeries, history of DVT/PE. Patient unvaccinated for COVID-19. Denies having prior diagnostic or therapeutic paracentesis. Paracentesis was attempted in the ED unable to remove fluid. Patient's WBC within normal limits, HGB 11.4, HCT 35.9 -last recorded H&H have all been within normal limits. Patient's chemistries are all within normal limits with the exception of glucose of 122, albumin 3.0, lipase is negative, total bilirubin 1.4, PT 16.7, INR 1.5, PTT 37. Patient vitals on admit were predominantly stable afebrile BP 129/67, slightly tachycardic HR 102, and tachypneic RR 22, patient required 3 L nasal cannula for an O2 saturation of 93%-patient does not use O2 at home. Patient's EKG demonstrated sinus tachycardia with a rate 111, and low-voltage QRS. Abdominal ultrasound was used to attempt paracentesis, unable to obtain fluid. Patient's chest x-ray demonstrated moderate left pleural effusion. Patient admitted for acute respiratory failure with hypoxia, abdominal ascites, and macrocytic anemia. Patient History Medical History (Updated 12/15/20 @ 04:32 by SUSIE Pittman) Alcohol abuse, in remission Alcoholic cirrhosis of liver with ascites Chronic back pain History of ectopic History of ectopic Hypertension Iron deficiency anemia due to chronic blood loss Surgical History (Updated 12/15/20 @ 04:32 [facility] History of cholecystectomy History of cholecystectomy No pertinent past surgical history Family & Social History Family History (Updated 12/15/20 @ 04:33 by PAMELA Pittman) Grandmother Hypertension Mother Hyperthyroidism Sister Hyperthyroidism Social History: household members significant other Prior Living Arrangements House Safety & Behavioral: Feels Safe in Current Yes Environment Been Physically Hurt or No Threatened By a Person Suicidal Ideation Description None Suicide Plan Description No Plan Tobacco & Substance use: Tobacco type cigarettes Smoking Status Former smoker Quit 30 yrs ago alcohol intake former alcohol intake frequency 3 or more drinks per day, documented still drinking 10/2019-pt reports she quit 10 years ago Substance Use Type marijuana Meds Home Medications and Allergies Home Medications Medication Instructions Recorded Confirmed Type atenolol 50 mg tablet 50 mg PO DAILY 08/30/17 12/15/20 History Allergies Allergy/AdvReac Type Severity Reaction Status Date / Time erythromycin base Allergy Unknown Gastrointestinal Verified 12/14/20 15:42 [ERYTHROMYCIN BASE] Upset Review of Systems Review of Systems Narrative: All 12 point systems reviewed with the patient and are negative except otherwise documented. Exam Vital Signs (past 8 hours): - 12/14/20 20:00 12/14/20 20:22 12/14/20 20:30 Temperature Pulse Rate 105 H 106 H 109 H Respiratory Rate Blood Pressure 141/73 H Pulse Oximetry 93 93 94 12/14/20 20:39 12/14/20 21:00 12/14/20 21:30 Temperature Pulse Rate 105 H 103 H 102 H Respiratory Rate Blood Pressure 142/76 H 134/74 129/67 Pulse Oximetry 94 94 93 12/14/20 22:00 12/14/20 22:10 12/14/20 22:30 Temperature Pulse Rate 103 H 104 H Respiratory Rate Blood Pressure 133/72 143/67 H Pulse Oximetry 93 93 12/14/20 22:31 12/14/20 23:00 12/14/20 23:30 Temperature Pulse Rate 99 H 98 H 97 H Respiratory Rate Blood Pressure 125/68 116/66 Pulse Oximetry 89 L 95 94 12/15/20 00:10 12/15/20 00:48 Temperature 97.7 F Pulse Rate 95 H Respiratory Rate 18 Blood Pressure 123/75 Pulse Oximetry 96 97 Oxygen Delivery Method Nasal Cannula Oxygen Flow Rate 3 Narrative Exam Narrative: General: Patient is a sony female, appears stated age, in mild distress at this time. HEENT: Normocephalic, atraumatic, extraocular muscles intact, oral pharynx is clear and mucous membranes are dry. Neck is supple and symmetric, trachea is midline, Negative for JVD Chest: Normal AP diameter and contour without kyphoscoliosis, with no nasal flaring, or retractions. Positive tachypneic labored breathing with speaking, pt unable to complete full sentences. Lungs: Auscultation of all lung wiggins are clear without adventitious sounds, wheezes, rhonchi, or rales. Cardio: S1 & S2 with regular rate and rhythm without murmur, rubs, or gallops, no carotid bruit, no cardiac pulsations present. Abdomen: Soft grossly distended mild I fuse tenderness with palpation, negative for organomegaly, or masses. Bowel sounds are present in all 4 quadrants without guarding or rebound, no CVA tenderness. Musculoskeletal: no deformity, crepitus, effusions, cyanosis, or clubbing present. pt has +3 pitting edema present to medial ankle, while feet and ankles anteriorly have +1 non pitting edema. Full range of motion intact radial and pedal pulses are normal. Skin: Warm dry and intact without rashes, ulcerations or petechiae. Skin is extremely dry on bilateral lower legs flaking present equally on both. Neuro: Alert and orientated x3, strength is +5/5 in all extremities, sensation to touch intact, no gross deficits noted of cranial nerves. Psych: Patient has a well-kept appearance, appropriate affect, mental status attitude thought context and judgment are appropriate for age. Objective Labs Result Diagrams: 12/14/20 15:36 12/14/20 15:36 Labs: Laboratory Results - last 24 hr 12/14/20 12/14/20 12/14/20 15:34 15:36 15:36 WBC 6.9 RBC 4.27 Hgb 11.4 L Hct 35.9 L MCV 84.0 MCH 26.7 MCHC 31.8 RDW 18.1 H Plt Count 158 Neut % (Auto) 66.5 Lymph % (Auto) 19.5 L Mesa % (Auto) 12.1 Eos % (Auto) 1.3 L Baso % (Auto) 0.6 Neut # (Auto) 4600 Lymph # (Auto) 1300 Mes[place] # (Auto) 800 Eos # (Auto) 100 Baso # (Auto) 0 PT INR APTT D-Dimer Sodium 137 Potassium 4.1 Chloride 106 Carbon Dioxide 25 BUN 12 Creatinine 0.60 Estimated GFR > 60.0 BUN/Creatinine Ratio 20.0 Glucose 122 H Calcium 8.7 Magnesium Iron 22 L TIBC 290 % Saturation 8 L Transferrin 220 Ferritin Total Bilirubin 1.4 H AST 29 ALT 13 Alkaline Phosphatase 80 Ammonia NT-Pro-B Natriuret Pep Total Protein 6.7 Albumin 3.0 L Globulin 3.7 Albumin/Globulin Ratio 0.8 L Triglycerides Cholesterol LDL Cholesterol, Calc HDL Cholesterol Lipase 109 Vitamin B12 Procalcitonin Chlamy pneumoniae PCR Adenovirus (PCR) B. pertussis DNA (PCR) B.parapertussis DNA PCR Coronavirus OC43 (PCR) Coronavirus HKU1 (PCR) Coronavirus 229E (PCR) SARS-CoV-2 (PCR) Coronavirus NL63 (PCR) Human Metapneumovir PCR Influenza Type A (PCR) Influenza Type B (PCR) M. pneumoniae (PCR) Parainfluenza 1 (PCR) Parainfluenza 2 (PCR) Parainfluenza 3 (PCR) Parainfluenza 4 (PCR) RSV (PCR) Entero/Rhino (PCR) 12/14/20 12/14/20 12/14/20 15:36 15:36 15:38 WBC RBC Hgb Hct MCV MCH MCHC RDW Plt Count Neut % (Auto) Lymph % (Auto) Mesa % (Auto) Eos % (Auto) Baso % (Auto) Neut # (Auto) Lymph # (Auto) Mesa # (Auto) Eos # (Auto) Baso # (Auto) PT 16.7 H INR 1.5 H APTT 37 H D-Dimer Sodium Potassium Chloride Carbon Dioxide BUN Creatinine Estimated GFR BUN/Creatinine Ratio Glucose Calcium Magnesium 2.3 Iron TIBC % Saturation Transferrin Ferritin 20 Total Bilirubin AST ALT Alkaline Phosphatase Ammonia NT-Pro-B Natriuret Pep 143 H Total Protein Albumin Globulin Albumin/Globulin Ratio Triglycerides 109 Cholesterol 123 L LDL Cholesterol, Calc 70 HDL Cholesterol 31 L Lipase Vitamin B12 892 Procalcitonin 0.08 Chlamy pneumoniae PCR Adenovirus (PCR) B. pertussis DNA (PCR) B.parapertussis DNA PCR Coronavirus OC43 (PCR) Coronavirus HKU1 (PCR) Coronavirus 229E (PCR) SARS-CoV-2 (PCR) Negative Coronavirus NL63 (PCR) Human Metapneumovir PCR Influenza Type A (PCR) Influenza Type B (PCR) M. pneumoniae (PCR) Parainfluenza 1 (PCR) Parainfluenza 2 (PCR) Parainfluenza 3 (PCR) Parainfluenza 4 (PCR) RSV (PCR) Entero/Rhino (PCR) 12/14/20 12/14/20 12/14/20 15:38 22:50 22:50 WBC RBC Hgb Hct MCV MCH MCHC RDW Plt Count Neut % (Auto) Lymph % (Auto) Mesa % (Auto) Eos % (Auto) Baso % (Auto) Neut # (Auto) Lymph # (Auto) Mesa # (Auto) Eos # (Auto) Baso # (Auto) PT INR APTT D-Dimer 1731 H Sodium Potassium Chloride Carbon Dioxide BUN Creatinine Estimated GFR BUN/Creatinine Ratio Glucose Calcium Magnesium Iron TIBC % Saturation Transferrin Ferritin Total Bilirubin AST ALT Alkaline Phosphatase Ammonia 11 NT-Pro-B Natriuret Pep Total Protein Albumin Globulin Albumin/Globulin Ratio Triglycerides Cholesterol LDL Cholesterol, Calc HDL Cholesterol Lipase Vitamin B12 Procalcitonin Chlamy pneumoniae PCR Not detected Adenovirus (PCR) Not detected B. pertussis DNA (PCR) Not detected B.parapertussis DNA PCR Not detected Coronavirus OC43 (PCR) Not detected Coronavirus HKU1 (PCR) Not detected Coronavirus 229E (PCR) Not detected SARS-CoV-2 (PCR) Not Reportable Coronavirus NL63 (PCR) Not detected Human Metapneumovir PCR Not detected Influenza Type A (PCR) Not detected Influenza Type B (PCR) Not detected M. pneumoniae (PCR) Not detected Parainfluenza 1 (PCR) Not detected Parainfluenza 2 (PCR) Not detected Parainfluenza 3 (PCR) Not detected Parainfluenza 4 (PCR) Not detected RSV (PCR) Not detected Entero/Rhino (PCR) Not detected Assessment & Plan Assessment & Plan narrative: Patient is a 70-year-old female Flor Santos with past medical history of HTN, alcohol abuse in reported remission, iron deficiency anemia due to chronic blood loss requiring multiple IV iron infusions, alcoholic cirrhosis presented to the ED for shortness of breath, increased fatigue x 2 days, increasing abd distention for 2 months. Patient admitted for acute respiratory failure with hypoxia, abdominal ascites, and macrocytic anemia. 1. Acute respiratory failure with hypoxia, acute, unknown etiology, present on admission -On admission HR 102, RR 22, patient required 3 L nasal cannula for an O2 saturation of 93%-patient does not use O2 at home. Tachypnea and increased work of breathing -chest x-ray demonstrated moderate left pleural effusion. -suspect cause to be a combination of iron deficiency anemia, and increasing ascites. Rule out pneumonia, PE, ACS, GI Bleed. -D-dimer, procalcitonin, respiratory panel, Trop -monitor on telemedicine -paracentesis in ED was unsuccessful-patient will need IR intervention paracentesis for fluid removal 2. Alcoholic cirrhosis with Abdominal ascites, worsening, acute on chronic, secondary to history of alcohol abuse, with resulting macranemia due to chronic blood loss, acute on chronic, present on admission -HGB 11.4, HCT 35.9 -last recorded H&H have all been within normal limits. Patient's chemistries are all within normal limits with the exception of glucose of 122, albumin 3.0, lipase is negative, total bilirubin 1.4, PT 16.7, INR 1.5, PTT 37. -monitor for upper and lower GI bleeds -ordered Hemoccult, due to risk of GI bleed in varices, iron, ferritin, TIBC -IV Protonix 40 mg now, followed by 20 mg oral Protonix q.day. -need to schedule IR paracentesis for ascites 3. Essential hypertension, chronic, present on admission -continue patient's atenolol Code status: Full code Surrogate decision maker: Max Santos spouse COVID PCR: Negative COVID vaccination: Patient does not want vaccine. DVT/VTE prophylaxis: No medication due to anemia, SCDs only at this time Disposition: Admitted for observation estimated length of stay less than 2 midnights.
--- NOTE | 2020-12-15 04:04 | DI.CT.S_ITS ---
PROCEDURE: CT ANGIO CHEST PE PROTOCOL INDICATIONS: acute SOB/ elevated dimer TECHNIQUE: After the administration of intravenous contrast, 2 mm thick sections acquired from the pulmonary apices to the posterior costophrenic angles. 3-dimensional maximum intensity projection (MIP) coronal and sagittal reformats were then acquired through the thorax. For radiation dose reduction, the following was used: automated exposure control, adjustment of mA and/or kV according to patient size. COMPARISON: None. FINDINGS: Image quality: Excellent. Pulmonary arteries: Pulmonary arteries are normal in size, and demonstrate no intraluminal filling defects to suggest central pulmonary embolism. Lungs and pleura: Large left pleural effusion with compressive atelectasis in the left lower lobe and patchy atelectasis versus consolidation in the left upper lobe. Mild contralateral mediastinal shift. 3 mm right apical pulmonary nodule. Reference image 20/5. Mediastinum: Heart size is normal, without pericardial effusion. No mediastinal or hilar adenopathy. Thoracic aorta is normal in caliber and enhancement. 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 Esophagus is normal in caliber. Small hiatal hernia. Bones and chest wall: No suspicious bony lesions. Ribs and thoracic spine appear intact throughout. Thyroid gland contains calcifications. No axillary or supraclavicular adenopathy. Abdomen: Cirrhotic liver. Large volume abdominal ascites. IMPRESSION: 1. No evidence acute pulmonary emboli. 2. Large left pleural effusion, compressive atelectasis in the left lower lobe, patchy atelectasis in the left upper lobe, mild contralateral mediastinal shift. 3. Cirrhosis, large volume ascites. 4. 3 mm right apical pulmonary nodule. Please see recommendations below. Fleischner Society criteria for SOLID lung nodule followup. Nodule size (mm)Low-risk patientHigh-risk patient<6 (single or multiple)No routine followup.Optional CT at 12 months. 6-8 (single or multiple)CT at 6-12 months, then optional CT at 18-24 mo.CT at 6-12 months, then CT at 18-24 months. >8 (single)CT at 3 months, PET-CT, or biopsy. Same as for low-risk pts. >8 (multiple)CT at 3-6 months, then optional CT at 18-24 mo.CT at 3-6 months, then CT at 18-24 months. Fleischner Society criteria for SUB-SOLID lung nodule followup. Solitary pure ground-glass nodules<6 mm (ground glass or part solid)No followup needed. 6 mm or larger (ground glass)CT at 6-12 months to confirm persistence, then CT every 2 years until 5 years.6 mm or larger (part solid)CT at 3-6 months to confirm persistence, then annual CT until 5 years if unchanged and solid component remains <6 mm. Multiple sub-solid nodules<6 mmCT at 3-6 months, then CT consider at 2 & 4 years for high risk patients. [address] at 3-6 months. Subsequent management based on most suspicious lesions. Recommendations do not apply to lung cancer screening, patients with immunosuppression, or patients with known primary cancer. Comment: Final report is concordant with preliminary interpretation provided by [facility]. Dictated by: Tony Toussaint M.D. on 12/15/2020 at 7:38 Approved by: Tony Toussaint M.D. on 12/15/2020 at 7:42
[2020-12-15 05:14] LABS: Add Manual Diff / Slide Review NO; Basophils Absolute Auto 100 /uL (0-100); Basophils Percent Auto 1.1 % (0-2); Eosinophils Absolute Auto 100 /uL (0-450); Eosinophils Percent Auto 1.6 % (2-4); Hematocrit 32.3 % (36-46); Hemoglobin 10.3 g/dL (12.0-16.0); Lymphocytes Absolute Auto 1400 /uL (1100-4500); Lymphocytes Percent Auto 27.2 % (25-40); Mean Corpuscular Hemoglobin 26.9 PG (26-34); Mean Corpuscular Volume 83.9 fL (80-100); Monocytes Absolute Auto 700 /uL (0-900); Monocytes Percent Auto 13.8 % (3-14); Neutrophils Absolute Auto 2900 /uL (1500-7000); Neutrophils Percent Auto 56.3 % (50-75); Platelet Count 129 X10^3/uL (150-400); Red Blood Cell Count 3.85 X10^6/uL (4.0-5.2); Red Cell Distribution Width 17.5 % (11.6-14.8); White Blood Cell Count 5.2 X10^3/uL (4.5-11.0)
[2020-12-15 05:19] LABS: INR 1.6 (0.9-1.3)
[2020-12-15 05:22] LABS: PTT Partial Thromboplastin Tim 39 SECONDS (26.4-36.2)
[2020-12-15 05:23] LABS: BUN Creatinine Ratio 23.1 (6-22); Blood Urea Nitrogen 12 mg/dL (7-17); Calcium 8.4 mg/dL (8.4-10.2); Carbon Dioxide 26 mmol/L (22-32); Chloride 107 mmol/L (98-107); Estimated Glomerular Filt Rate > 60.0 mL/min (>60); Glucose 96 mg/dL (80-110); HEMOLYSIS < 15 (0-50); Potassium 4.2 mmol/L (3.4-5.1); Sodium 137 mmol/L (137-145)
--- NOTE | 2020-12-15 07:14 | DI.US.S_ITS ---
PROCEDURE: US ABDOMEN LIMITED INDICATIONS: LEFT PLEURAL EFFUSION - THERAPEUTIC TECHNIQUE: Real-time focused scanning was performed of the abdomen, with image documentation. COMPARISON: [facility], , US ABDOMEN LIMITED, 12/14/2020, 17:57. FINDINGS: There is minimal left pleural effusion. Insufficient volume for safe therapeutic only thoracentesis. IMPRESSION: Minimal left pleural fluid. Insufficient volume for safe therapeutic thoracentesis, which was therefore not performed. Dictated by: Jass Roth M.D. on 12/15/2020 at 13:20 Approved by: Jass Roth M.D. on 12/15/2020 at 13:21
--- NOTE | 2020-12-15 07:27 | PC.NURSE ---
Patient was bladder scanned at 0655 which showed 999+, however, patient's abdomen is very large with fluid. Provider ALFREDO Mishra was notified and this RN was told to have the patient try to urinate or have an straight cath. Patient refused to try and refused an in and out cath. Report was passed to oncoming RN.
[2020-12-15] MEDS: PHYTONADIONE (VIT K1) 5 MG in SODIUM CHLORIDE 0.9% 100 ML 201 ML IV (07:49)
[2020-12-15] MEDS: SODIUM CHLORIDE 0.9% FLUSH 10 ML IV ×2 (07:50→18:26)
--- NOTE | 2020-12-15 12:13 | PC.NURSE ---
Shift note: pt to IR for ultrasound guided paracentesis and thoracentesis, via wheelchair. Received Vit K infusion this morning. Per ultrasound, 5 liters was removed from abdomen. States thoracentesis wasn't done. Pt advanced to heart healthy diet. Denies pain/discomfort. On room air with sats in mid to high 90s. Pt still has not had any urine output on this shift. Will plan to bladder scan patient shortly.
--- NOTE | 2020-12-15 13:15 | OT.IPNOTE ---
Attempted to see pt for OT eval , able to get prior level of function, but pt insistent that she does not want to get up at this time and just wants to rest. To check on pt tomorrow for OT lumaal. NO charge
[2020-12-15] MEDS: SPIRONOLACTONE 25 MG TABLET 50 MG PO (14:17)
[2020-12-15] MEDS: FUROSEMIDE 20 MG TABLET PO (14:17)
--- NOTE | 2020-12-15 16:41 | PT-IP ANOTE ---
Received PT orders and reviewed chart. Attempted to see pt twice this PM but she stated she was too tired, refusing mobility assessment. Will check on pt for evaluation Tuesday.
--- NOTE | 2020-12-15 17:54 | PC.NURSE ---
Taking diet well with set up. Denies pain and denies nausea. Up independently to bathroom with steady gait. Denies any h/o falls or dizziness when up. Urine is dark darleen in color. Large distended abdomen with gauze in place to prior paracentesis site with small amount shadowy drainage visible. Tele in place. Pt refuses scd's.
--- NOTE | 2020-12-15 19:56 | PM.PN.1 ---
Subjective Subjective Interval history: 70 y/o female with End stage liver disease secondary to cirrhosis from alcoholism admitted with ascites, shortness of breath and a large left pleural effusion Patient is s/p paracentesis and feels weak but breathing has improved Exam Vital Signs (past 8 hours): - 12/15/20 13:00 12/15/20 15:30 12/15/20 19:16 Temperature 97.5 F L 97.7 F Pulse Rate 92 H 98 H Respiratory Rate 15 16 Blood Pressure 123/65 115/54 L Pulse Oximetry 96 96 93 Oxygen Delivery Method Room Air Oxygen Flow Rate 0 Narrative Exam Narrative: ill appearing emaciated female Resp Other: Lungs: decreased breath sounds, Left lung with scattered crackles right lung is clear Cardio Other: RRR nl Sl S2 2/6 QUINTIN GI Other: Abd: soft non tender, positive fluid wave Extrem Other: 1+ edema bilaterally Objective Labs Result Diagrams: 12/15/20 05:00 12/15/20 05:00 Labs: Laboratory Results - last 24 hr 12/14/20 12/14/20 12/14/20 15:34 15:36 15:38 WBC RBC Hgb Hct MCV MCH MCHC RDW Plt Count Neut % (Auto) Lymph % (Auto) [place] % (Auto) Eos % (Auto) Baso % (Auto) Neut # (Auto) Lymph # (Auto) [place] # (Auto) Eos # (Auto) Baso # (Auto) PT INR APTT D-Dimer Sodium Potassium Chloride Carbon Dioxide BUN Creatinine Estimated GFR BUN/Creatinine Ratio Glucose Calcium Magnesium 2.3 Iron 22 L TIBC 290 % Saturation 8 L Transferrin 220 Ferritin 20 Ammonia NT-Pro-B Natriuret Pep 143 H Triglycerides 109 Cholesterol 123 L LDL Cholesterol, Calc 70 HDL Cholesterol 31 L Vitamin B12 892 Procalcitonin 0.08 Chlamy pneumoniae PCR Not detected Adenovirus (PCR) Not detected B. pertussis DNA (PCR) Not detected B.parapertussis DNA PCR Not detected Coronavirus OC43 (PCR) Not detected Coronavirus HKU1 (PCR) Not detected Coronavirus 229E (PCR) Not detected SARS-CoV-2 (PCR) Not Reportable Coronavirus NL63 (PCR) Not detected Human Metapneumovir PCR Not detected Influenza Type A (PCR) Not detected Influenza Type B (PCR) Not detected M. pneumoniae (PCR) Not detected Parainfluenza 1 (PCR) Not detected Parainfluenza 2 (PCR) Not detected Parainfluenza 3 (PCR) Not detected Parainfluenza 4 (PCR) Not detected RSV (PCR) Not detected Entero/Rhino (PCR) Not detected 12/14/20 12/14/20 12/15/20 22:50 22:50 05:00 WBC 5.2 RBC 3.85 L Hgb 10.3 L Hct 32.3 L MCV 83.9 MCH 26.9 MCHC 32.0 RDW 17.5 H Plt Count 129 L Neut % (Auto) 56.3 Lymph % (Auto) 27.2 [place] % (Auto) 13.8 Eos % (Auto) 1.6 L Baso % (Auto) 1.1 Neut # (Auto) 2900 Lymph # (Auto) 1400 [place] # (Auto) 700 Eos # (Auto) 100 Baso # (Auto) 100 PT INR APTT D-Dimer 1731 H Sodium Potassium Chloride Carbon Dioxide BUN Creatinine Estimated GFR BUN/Creatinine Ratio Glucose Calcium Magnesium Iron TIBC % Saturation Transferrin Ferritin Ammonia 11 NT-Pro-B Natriuret Pep Triglycerides Cholesterol LDL Cholesterol, Calc HDL Cholesterol Vitamin B12 Procalcitonin Chlamy pneumoniae PCR Adenovirus (PCR) B. pertussis DNA (PCR) B.parapertussis DNA PCR Coronavirus OC43 (PCR) Coronavirus HKU1 (PCR) Coronavirus 229E (PCR) SARS-CoV-2 (PCR) Coronavirus NL63 (PCR) Human Metapneumovir PCR Influenza Type A (PCR) Influenza Type B (PCR) M. pneumoniae (PCR) Parainfluenza 1 (PCR) Parainfluenza 2 (PCR) Parainfluenza 3 (PCR) Parainfluenza 4 (PCR) RSV (PCR) Entero/Rhino (PCR) 12/15/20 12/15/20 05:00 05:00 WBC RBC Hgb Hct MCV MCH MCHC RDW Plt Count Neut % (Auto) Lymph % (Auto) [place] % (Auto) Eos % (Auto) Baso % (Auto) Neut # (Auto) Lymph # (Auto) [place] # (Auto) Eos # (Auto) Baso # (Auto) PT 18.0 H INR 1.6 H APTT 39 H D-Dimer Sodium 137 Potassium 4.2 Chloride 107 Carbon Dioxide 26 BUN 12 Creatinine 0.52 Estimated GFR > 60.0 BUN/Creatinine Ratio 23.1 H Glucose 96 Calcium 8.4 Magnesium Iron TIBC % Saturation Transferrin Ferritin Ammonia NT-Pro-B Natriuret Pep Triglycerides Cholesterol LDL Cholesterol, Calc HDL Cholesterol Vitamin B12 Procalcitonin Chlamy pneumoniae PCR Adenovirus (PCR) B. pertussis DNA (PCR) B.parapertussis DNA PCR Coronavirus OC43 (PCR) Coronavirus HKU1 (PCR) Coronavirus 229E (PCR) SARS-CoV-2 (PCR) Coronavirus NL63 (PCR) Human Metapneumovir PCR Influenza Type A (PCR) Influenza Type B (PCR) M. pneumoniae (PCR) Parainfluenza 1 (PCR) Parainfluenza 2 (PCR) Parainfluenza 3 (PCR) Parainfluenza 4 (PCR) RSV (PCR) Entero/Rhino (PCR) [facility] Medical History (Updated 12/15/20 @ 04:32 by SUSIE Pittman) Alcohol abuse, in remission Alcoholic cirrhosis of liver with ascites Chronic back pain History of ectopic History of ectopic Hypertension Iron deficiency anemia due to chronic blood loss Surgical History (Updated 12/15/20 @ 04:32 by SUSEI Pittman) History of cholecystectomy History of cholecystectomy No pertinent past surgical history Family History (Updated 12/15/20 @ 04:33 by SUSIE Pittman) Grandmother Hypertension Mother Hyperthyroidism Sister Hyperthyroidism Social History household members: significant other Smoking Status: Former smoker alcohol intake: former Assessment & Plan Assessment & Plan narrative: Patient is a 70-year-old female Flor Santos with past medical history of HTN, alcohol abuse in reported remission, iron deficiency anemia due to chronic blood loss requiring multiple IV iron infusions, alcoholic cirrhosis presented to the ED for shortness of breath, increased fatigue x 2 days, increasing abd distention for 2 months. Patient admitted for acute respiratory failure with hypoxia, abdominal ascites, and macrocytic anemia. 1. Acute respiratory failure with hypoxia, acute, unknown etiology, present on admission -On admission HR 102, RR 22, patient required 3 L nasal cannula for an O2 saturation of 93%-patient does not use O2 at home. Tachypnea and increased work of breathing -chest x-ray demonstrated moderate left pleural effusion. -suspect cause to be a combination of iron deficiency anemia, and increasing ascites. Rule out pneumonia, PE, ACS, GI Bleed. -D-dimer, procalcitonin, respiratory panel, Trop -monitor on telemedicine -paracentesis in ED was unsuccessful-patient will need IR intervention paracentesis for fluid removal - Ultrasound guided paracentesis, successful, patient has improved breathing, very weak and still does not feel well 2. Alcoholic cirrhosis with Abdominal ascites, worsening, acute on chronic, secondary to history of alcohol abuse, with resulting macranemia due to chronic blood loss, acute on chronic, present on admission -HGB 11.4, HCT 35.9 -last recorded H&H have all been within normal limits. Patient's chemistries are all within normal limits with the exception of glucose of 122, albumin 3.0, lipase is negative, total bilirubin 1.4, PT 16.7, INR 1.5, PTT 37. -monitor for upper and lower GI bleeds -ordered Hemoccult, due to risk of GI bleed in varices, iron, ferritin, TIBC -IV Protonix 40 mg now, followed by 20 mg oral Protonix q.day. -start lasix 20 mg daily, spironolactone 50 mg daily 3. Essential hypertension, chronic, present on admission -continue patient's atenolol 4. Likely protein calorien malnutrition- patient not eating, appears wasted, will ask dietary to consult Weakness, will consult PT/OT Not sure she is safe to return home alone i have utilized all available resources to review update and confirm current medications.
[2020-12-16] VITALS (15 sets, daily range): BP systolic 110–127; BP diastolic 49–69; PULSE 89–104; RESP 16–18; TEMP 36.4–36.7; O2SAT 93–95
[2020-12-16] MEDS: PANTOPRAZOLE DR 20 MG TABLET PO (05:35)
[2020-12-16 06:12] LABS: Add Manual Diff / Slide Review NO; Basophils Absolute Auto 0 /uL (0-100); Basophils Percent Auto 0.4 % (0-2); Eosinophils Absolute Auto 100 /uL (0-450); Eosinophils Percent Auto 1.4 % (2-4); Hemoglobin 10.1 g/dL (12.0-16.0); Lymphocytes Absolute Auto 1100 /uL (1100-4500); Lymphocytes Percent Auto 18.7 % (25-40); Mean Corpuscular HGB Conc 32.7 % (30-36); Mean Corpuscular Hemoglobin 27.2 PG (26-34); Mean Corpuscular Volume 83.1 fL (80-100); Monocytes Absolute Auto 600 /uL (0-900); Monocytes Percent Auto 10.3 % (3-14); Neutrophils Absolute Auto 4100 /uL (1500-7000); Neutrophils Percent Auto 69.2 % (50-75); Platelet Count 120 X10^3/uL (150-400); Red Blood Cell Count 3.73 X10^6/uL (4.0-5.2); Red Cell Distribution Width 17.6 % (11.6-14.8); White Blood Cell Count 5.9 X10^3/uL (4.5-11.0)
[2020-12-16 06:16] LABS: BUN Creatinine Ratio 21.8 (6-22); Blood Urea Nitrogen 12 mg/dL (7-17); Carbon Dioxide 26 mmol/L (22-32); Chloride 106 mmol/L (98-107); Estimated Glomerular Filt Rate > 60.0 mL/min (>60); Glucose 88 mg/dL (80-110); HEMOLYSIS < 15 (0-50); Potassium 4.1 mmol/L (3.4-5.1); Sodium 134 mmol/L (137-145)
--- NOTE | 2020-12-16 07:00 | PC.NURSE ---
Patient had a small formed BM at 0647 which showed a Positive Guaiac result. Provider ALFREDO Mishra notified, no orders given.
--- NOTE | 2020-12-16 09:04 | OT.IPNOTE ---
Attempted to see pt for OT eval again today and pt states too tired to get up. However pt states has been getting up to use the bathroom and feels that she insists that has no OT needs. In addition that her significant other and son can assist her at home as needed. Therefore discharge OT eval orders.
[2020-12-16] MEDS: SPIRONOLACTONE 25 MG TABLET 50 MG PO (09:13)
[2020-12-16] MEDS: FUROSEMIDE 20 MG TABLET PO (09:13)
[2020-12-16] MEDS: SODIUM CHLORIDE 0.9% FLUSH 10 ML IV ×2 (09:16→21:18)
--- NOTE | 2020-12-16 09:48 | PT.IIE ---
Medical History (Last Updated 12/15/20 @ 04:32 by Tomasa Mishra, [facility]) Alcohol abuse, in remission Alcoholic cirrhosis of liver with ascites Chronic back pain History of ectopic History of ectopic Hypertension Iron deficiency anemia due to chronic blood loss Physical Therapy Inpatient Evaluation/Re-Eval M1 PT/OT-IP Prior Functional Status Start: 12/15/20 15:55 Freq: NEEDED Status: Active Protocol: Document 12/16/20 09:48 AW (Rec: 12/16/20 10:38 AW [id number]) Medical Review Prior Functional Status Medical History Reviewed Yes Communication Pt is able to make needs known . Mobility and Gait Pt is independent without assistive device for household mobility. She states she rarely leaves the house. Activities of Daily Living and IADL's Independent with ADL's except for SBA to shower. Pt does not drive. Her partner and her son drive her to appointments. Prior Functional Level (Other details) Pt underwent paracentesis yesterday with 5L fluid removed. Social History Household Members significant other Living Arrangements House Number of Floors (Floors) Two Floors Number of Stairs To Enter/Railing? 3 CHRISSIE with no rails. Pt stays on the charge entry. Home Environment High Toilet,Tub/Shower Home Equipment Grab Bars In Shower Employment Status Retired Additional Social History Comment Pt lives with her partner, Max. Her son, Edilson, lives in a trailer on the same property. Max works outside the home. M2 PT-IP Current Condition Start: 12/15/20 15:55 Freq: NEEDED Status: Active Protocol: Document 12/16/20 09:48 AW (Rec: 12/16/20 10:38 AW [id number]) Physical Therapy Current Condition Current Condition Evaluation Date 12/16/20 Treatment Diagnosis acute respiratory failure; hypoxia; ascites; generalized weakness Onset Date 12/14/20 M3 PT-IP Subjective Start: 12/15/20 15:55 Freq: NEEDED Status: Active Protocol: Document 12/16/20 09:48 AW (Rec: 12/16/20 10:38 AW [id number]) Subjective Physical Therapy Visit Type Type Initial Evaluation Visit Start Time 09:35 Visit Stop Time 09:48 Total Visit Minutes 13 Number of ELECTRICAL CONTROLS DESIGNER Visits 0 Physical Therapy Visit Comments Patient Comments Pt is reluctant to get up but ultimately willing to do PT Patient Goals Return home with family assist . Therapy Pain Assessment Pain When Pain Assessed During Mobility Pain Present Pain Present Denied Pain M4 PT-IP Mobility and Gait Start: 12/15/20 15:55 Freq: NEEDED Status: Active Protocol: Document 12/16/20 09:48 AW (Rec: 12/16/20 10:38 AW [id number]) PT-Bed Mobility Assessment Supine to Sit Supine to Sit Standby Assistance Sit to Supine Sit to Supine Standby Assistance PT-Transfer Assessment Sit to and From Stand Sit to and from Stand Standby Assistance Equipment Transfer Assistive Device None,Gait Belt Transfers Transfer Destination Bed,Chair Transfer Technique Stand Step Pivot Transfer Ability Level of Assist Standby Assistance Comments Mobility Comments Pt agreed to participate in limited mobility assessment. She completed all bed mobility , transfers, and ambulation SBA. She got up from the bed, walked to the chair for transfer, stood, and walked around the room a total of 50 feet. She returned to supine and was left with bed alarm on , call light in reach. Gait Assessment Gait Gait Assistance Required: Standby Assistance Distance (Feet) 50 Assistive Devices Assistive Device None,Gait Belt Gait Deviations General Gait Pattern Antalgic,Flexed Trunk Factors Limiting Gait Function Factors Limiting Gait Function Decreased Activity Tolerance, Decreased Strength Comments Gait Comments Gait was antalgic but steady with no evidence of LOB. Stair Climbing Assessment Comments Stair Climbing Comments Not assessed per pt request PT-Balance Assessment Sitting Balance and Reactions Static Sitting Balance Ability Good Dynamic Sitting Balance Ability Good Standing Balance and Reactions Static Standing Balance Ability Good Dynamic Standing Balance Ability Good Device Used no AD M5 PT-IP Objective Assessments Start: 12/15/20 15:55 Freq: NEEDED Status: Active Protocol: Document 12/16/20 09:48 AW (Rec: 12/16/20 10:38 AW [id number]) Orientation Orientation/Cognition Level of Alertness Alert Orientation Name,Day of Week,Place, Situation Language Function Ability No Deficits Noted Safety Awareness Understands Safety Issues Memory Description No Deficits Noted Gross Range of Motion Lower Extremity ROM Assessment Within Functional Limits Strength Lower Extremity Strength Hip 4/5 Knee 4+/5 Ankle 4+/5 Sensation Assessment Sensation Gross Sensation WNL Muscle Tone Muscle Tone WNL Yes Other Assessments Other Other Assessments SpO2 stable 93-95% on room air througout assessment. M6 PT-IP Treatment Start: 12/15/20 15:55 Freq: NEEDED Status: Active Protocol: Document 12/16/20 09:48 AW (Rec: 12/16/20 10:38 AW [id number]) Physical Therapy Treatment Education Education Provided Safety Other Treatments Other Treatment Performed Educated pt on exam findings and level of assist currently required for safe mobility. M7 PT-IP Assessment and Plan Start: 12/15/20 15:55 Freq: NEEDED Status: Active Protocol: Document 12/16/20 09:48 AW (Rec: 12/16/20 10:38 AW [id number]) PT Summary Assessment and Plan Potential Rehabilitation Potential Good Status of Condition at Evaluation Evolving Summary Impairments Pain,Strength,Bed Mobility, Transfers,Gait,Activity Tolerance Assessment Summary Flor is a 70 yo woman with admitting diagnoses of acute respiratory failure and ascites. She underwent paracentesis yesterday with 5L fluid drawn. She is independent with household mobility at baseline and denies falls. She required no more than SBA for mobility during assessment today and strength was within functional limits. Pt is likely at or near her functional baseline and she has family assist at home. No acute PT needs are identified. Pt will be safe to discharge home with assist once medically stable. Frequency of Treatment Frequency Of Treatment Discharge Recommendations To Nursing Amount of Assist Needed Standby Assistance Discharge Recommendations PT Discharge Recommendations Home with Assistance Transportation Needs at Discharge Private Vehicle
--- NOTE | 2020-12-16 11:17 | DIET.CONS ---
Dietary Consultation Note Admission Date: 12/14/2020 21:08 Assessment: 70y F admitted for SOB found to have pleural effusion and significant ascites secondary to end stage liver cirrhosis referred to nutrition for poor appetite. Pt had 5L removed from belly improving her SOB however pt remains weak and deconditioned. Since procedure pts POs increased from 15% to 50-75%. Pt lives at home c spouse and 45y son lives on property. Pts spouse works manager maritime so prepares her breakfast but she does not eat during the day and they share meal in evening. Pt keeps malted milk ball at bedside and snacks on a few in evening. Pt reports son is unreliable regarding help around the house. Pt has increasing weakness over past 2mo and does not grasp effect of liver disease in her current health status. Usual Day: B: egg, toast, jackson D: shared meal c Sn: malted milk balls RD Impression: Pt has long periods of fasting between breakfast and dinner (8+hrs) as well as between dinner and breakfast (8+hrs). When ascites build up, pts SOB returns and appetite diminishes. Pt open and receptive to nutrition tips for better energy and to support end-stage liver disease. Pt asks for RD business card so spouse can call for better home nutrition plan. Ht: 175.26 cm Wt: 69.8 kg (prior to 5L fluid removal) BMI: 22.7 Last BM: 12/16/20 (12/16/20 06:47) MNA: 7 Percy Score: 19 Diet: 12/15/20 Breakfast Heart Healthy Diet Diet Modifications: Sodium Level: 2 gm Sodium Percent of last meal consumed (last 48h) Percent Meal Consumed 75% 12/16/20 09:55 Percent Meal Consumed 50% 12/15/20 17:42 Percent Meal Consumed 15 12/15/20 08:30 Labs: RBC 3.73 X10^6/uL (4.0-5.2) L 12/16/20 05:35 Hgb 10.1 g/dL (12.0-16.0) L 12/16/20 05:35 Hct 31.0 % (36-46) L 12/16/20 05:35 Creatinine 0.55 mg/dL (0.52-1.04) 12/16/20 05:35 Iron 22 ug/dL (37-170) L 12/14/20 15:34 % Saturation 8 % (15-50) L 12/14/20 15:34 Ferritin 20 ng/mL (11-264) 12/14/20 15:36 NT-Pro-B Natriuret Pep 143 pg/mL (<125) H 12/14/20 15:36 Nutrition Diagnosis: Severe Chronic Malnutrition r/t end stage liver disease and nutrition related knowledge deficit aeb pt c etoh related cirrhosis c ascites requiring 5L aspirate, pt consuming 50% EER c prolonged daily fasting >8hr, unclear current etoh intake. Interventions: 1. Educated pt on effect of prolonged fasting on overall health status. Collaborated c pt on ways to increase PO intake throughout the day, before bed, and immediately upon waking. Recc pt snack on hb eggs, pb sandwich, other easy to prepare items spouse can set out before he leaves for work or pt can easily prepare herself. 2. Discussed MNT for liver including following low sodium diet, eggs daily to support albumin levels, limiting fasting c small frequent meals. EER: 1950kcal (30kcal/kg per malnutrition), 78g PRO (1.2g/kg per malnutrition and end stage liver disease), small frequent meals limiting fasting periods. Monitoring/Evaluations: f/u c spouse over phone per pt permission to support nutrition status.
--- NOTE | 2020-12-16 11:19 | CM.DANOTE ---
Addendum entered by Naya Morton R.N. 12/16/20 14:10: CM spoke with DR. Noble who spoke with patient and stated patient now wants to go to SNF -[facility]- CM called September and sent over referral for her to review for possible acceptance - pending auth from [facility]- september will place auth once they decided if they can accept the patient for admission. CM will follow up with Keira Morton RN Original Note: DC Assessment: patient is a 70 yr old female admitted through the ED. CM met with patient at bedside and explained role patient stated understanding. Patient currently lives with her KINA Santana and her adult son lives in a trailor on the property. Patient is alert and oriented x4 at time of CM visit. patient stated that she is independent at baseline and can drive but her KINA santana does most of the driving currently. CM talked with patient about home health or SNF Discharge options and patient stated she does not want any HH or SNF services and she wants to go home at discharge. During AM rounds Dietary stated she will evaluate patient since her SO stated patient only eats breakfast that he makes prior to going to work. Patient stated she wants to go home. PT worked with patient and stated she is appropriate for Home with assistance. I: [facility] MCR and medicaid Plan: DC home with KINA santana - no HH since patient is currently denying services Naya Morton RN, BSN Discharge Planning/Care Management Discharge Assessment Start: 12/16/20 11:13 Freq: Status: Active Protocol: Document 12/16/20 11:13 HS (Rec: 12/16/20 11:19 HS [id number]) Discharge Planning Assessment Assigned Foster Care Social Worker Naya Morton RN, BSN DPOA/Assigned Designee Name Max Advance Directives? Yes: Special Power of Production Cell Leader Advance Directives on File Yes History Provided By Patient,Medical Record Has Patient been admitted in last 30 No days? Prior Living Arrangements House Household Members significant other Comment and adult son lives on property but according to SO is no help to Patient Type of transporation used prior to Relies on Others admit Comment patient states she can drive but has been depending on her SO to get her around Independent with ADL's Yes: but chooses not to eat Is patient alert and oriented? Yes Needs Assistance With Eating Comment patient will eat in AM when her SO makes her breakfast but doesnt eat the rest of the day - dietary will speak iwth pateint about food issues Caregiver for Another No Discharge Plan Home Referrals Initiated None needed Additional Comment Patient denied HH services and SNF as possible DC options and states she just wants to go home- Whiteboard Updated in Patient Room with Yes name and ext. # of Foster Care Social Worker Review Status In Process Next Review Type Continued Stay Review
--- NOTE | 2020-12-16 14:19 | PM.PN.1 ---
Subjective Subjective Interval history: The Patient is a 70 y/o female with end stage liver disease secondary to Alcoholic cirrhosis who presented with massive ascites and shortness of breath. Patient had 5 liters of fluid removed with improvement of her symptoms. She continues to feel weak and is tearful discussing her medical condition. Exam Vital Signs (past 8 hours): - 12/16/20 07:43 12/16/20 07:51 12/16/20 09:22 Temperature 97.9 F Pulse Rate 91 H Respiratory Rate 18 Blood Pressure 127/64 Pulse Oximetry 93 95 95 12/16/20 11:29 12/16/20 11:46 12/16/20 12:28 Temperature 97.8 F Pulse Rate 90 Respiratory Rate 16 Blood Pressure 112/49 L Pulse Oximetry 93 95 95 Oxygen Delivery Method Room Air Oxygen Flow Rate 0 Narrative Exam Narrative: chronically ill appearing female lying in bed Eyes Other: jaundiced Chest Other: spider angiomata of chest wall Resp Other: Lungs: clear to auscultation on the right, decreased breath sounds on the left Cardio Other: RRR nl Sl S2 2/6 QUINTIN GI Other: Abd: distended, positive fluid wave, no palpable masses Extrem Other: 2+ edema Objective Labs Result Diagrams: 12/16/20 05:35 12/16/20 05:35 Labs: Laboratory Results - last 24 hr 12/16/20 12/16/20 05:35 05:35 WBC 5.9 RBC 3.73 L Hgb 10.1 L Hct 31.0 L MCV 83.1 MCH 27.2 MCHC 32.7 RDW 17.6 H Plt Count 120 L Neut % (Auto) 69.2 Lymph % (Auto) 18.7 L Price % (Auto) 10.3 Eos % (Auto) 1.4 L Baso % (Auto) 0.4 Neut # (Auto) 4100 Lymph # (Auto) 1100 Price # (Auto) 600 Eos # (Auto) 100 Baso # (Auto) 0 Sodium 134 L Potassium 4.1 Chloride 106 Carbon Dioxide 26 BUN 12 Creatinine 0.55 Estimated GFR > 60.0 BUN/Creatinine Ratio 21.8 Glucose 88 Calcium 8.0 L [facility] Medical History (Updated 12/15/20 @ 04:32 by SUSIE Pittman) Alcohol abuse, in remission Alcoholic cirrhosis of liver with ascites Chronic back pain History of ectopic History of ectopic Hypertension Iron deficiency anemia due to chronic blood loss Surgical History (Updated 12/15/20 @ 04:32 by SUSIE Pittman) History of cholecystectomy History of cholecystectomy No pertinent past surgical history Family History (Updated 12/15/20 @ 04:33 by SUSIE Pittman) Grandmother Hypertension Mother Hyperthyroidism Sister Hyperthyroidism Social History household members: significant other Smoking Status: Former smoker alcohol intake: former Assessment & Plan Assessment & Plan narrative: Patient is a 70-year-old female Flor Santos with past medical history of HTN, alcohol abuse in reported remission, iron deficiency anemia due to chronic blood loss requiring multiple IV iron infusions, alcoholic cirrhosis presented to the ED for shortness of breath, increased fatigue x 2 days, increasing abd distention for 2 months. Patient admitted for acute respiratory failure with hypoxia, abdominal ascites, and macrocytic anemia. 1. Acute respiratory failure with hypoxia, acute, unknown etiology, present on admission -On admission HR 102, RR 22, patient required 3 L nasal cannula for an O2 saturation of 93%-patient does not use O2 at home. Tachypnea and increased work of breathing -chest x-ray demonstrated moderate left pleural effusion. -suspect cause to be a combination of iron deficiency anemia, and increasing ascites. Rule out pneumonia, PE, ACS, GI Bleed. -D-dimer, procalcitonin, respiratory panel, Trop -monitor on telemedicine -paracentesis in ED was unsuccessful-patient will need IR intervention paracentesis for fluid removal - Ultrasound guided paracentesis, successful, patient has improved breathing, very weak and still does not feel well -continue lasix and spironolactone 2. Alcoholic cirrhosis with Abdominal ascites, worsening, acute on chronic, secondary to history of alcohol abuse, with resulting macranemia due to chronic blood loss, acute on chronic, present on admission -HGB 11.4, HCT 35.9 -last recorded H&H have all been within normal limits. Patient's chemistries are all within normal limits with the exception of glucose of 122, albumin 3.0, lipase is negative, total bilirubin 1.4, PT 16.7, INR 1.5, PTT 37. -monitor for upper and lower GI bleeds -ordered Hemoccult, due to risk of GI bleed in varices, iron, ferritin, TIBC -IV Protonix 40 mg now, followed by 20 mg oral Protonix q.day. -start lasix 20 mg daily, spironolactone 50 mg daily -anemic, with guiac positive stool -consult surgery for EGD 3. Essential hypertension, chronic, present on admission -continue patient's atenolol 4. Likely protein calorien malnutrition- patient not eating, appears wasted, will ask dietary to consult Weakness, will consult PT/OT 5. Weakness , likely multifactorial. Patient agreeable to SNF placement
--- NOTE | 2020-12-16 21:22 | PC.NURSE ---
Went into patient room to ask if she needed to go to the bathroom as she has not voided since 1400. She said she does not have to go and does not want to get up and try. I explained that since it has been almost 8 hours without a void, we may have to bladder scan to see how much urine is in her bladder. She responded with yelling at me saying she does not have to go and she just wants to sleep and shes fine and to leave her alone. Will inform shift stacker of this incident and to monitor urine output.
[2020-12-17] VITALS (8 sets, daily range): BP systolic 116–126; BP diastolic 67–78; PULSE 91; RESP 16–18; TEMP 36.4–37.2; O2SAT 93–96
[2020-12-17] MEDS: FUROSEMIDE 20 MG TABLET PO (09:29)
[2020-12-17] MEDS: SPIRONOLACTONE 25 MG TABLET 50 MG PO (09:29)
[2020-12-17] MEDS: SODIUM CHLORIDE 0.9% FLUSH 10 ML IV (09:36)
--- NOTE | 2020-12-17 11:07 | P.DS_ITS ---
History of Present Illness History of Present Illness Chief complaint: SOB Narrative: Patient is a 70-year-old female Flor Santos? with past medical history of HTN, alcohol abuse in reported remission, iron deficiency anemia due to chronic blood loss requiring multiple IV iron infusions, alcoholic cirrhosis presented to the ED for shortness of breath, increased fatigue x 2 days, increasing abd distention for 2 months.? Patient was seen in the ED on 12/09/2020 for weakness, discharged with PCP follow-up. Patient endorses increasing shortness of breath over the last 2 days, patient is unable to speak in complete sentences without shortness of breath.? Patient denies fever, chills, chest pain, nausea, vomiting, constipation, diarrhea, recent illness injury, or trauma. Patient reports poor appetite, decreased appetite and weight loss which is not reflected in chart. Patient endorses past history of heavy alcohol use, no alcohol use in the last 2 years, though Oncology note 10/2019 states patient was still drinking.? Patient denies recent leg swelling, immobilization, recent surgeries, history of DVT/PE.? Patient unvaccinated for COVID-19.? Denies having prior diagnostic or therapeutic paracentesis.? Paracentesis was attempted in the ED unable to remove fluid. Patient's WBC within normal limits, HGB 11.4, HCT 35.9 -last recorded H&H have all been within normal limits.? Patient's chemistries are all within normal limits with the exception of glucose of 122, albumin 3.0, lipase is negative, total bilirubin 1.4, PT 16.7, INR 1.5, PTT 37.? Patient vitals on admit were predominantly stable afebrile BP 129/67, slightly tachycardic HR 102, and tachypneic RR 22, patient required 3 L nasal cannula for an O2 saturation of 93%-patient does not use O2 at home.? Patient's EKG demonstrated sinus tachy cardia with a rate 111, and low-voltage QRS.? Abdominal ultrasound was used to attempt paracentesis, unable to obtain fluid.? Patient's chest x-ray demonstrated moderate left pleural effusion.? Patient admitted for acute respiratory failure with hypoxia, abdominal ascites, and macrocytic anemia. Discharge Providers Provider Date of admission: 12/14/20 21:08 Discharge Date: 12/17/20 Primary care physician: Elena Carter MD Consults: 12/15/20 11:40 Consult to Dietitian, Adult Routine Comment: Reason For Exam: cirrhosis, poor appetite Consult to Occupational Therapy Evaluate & Treat Comment: Physician Instructions: Evaluate and treat Consult to Physical Therapy Evaluate & Treat Comment: Physician Instructions: Evaluate and Treat Discharge provider: Zenaida Noble MD Summary Hospital Course Discharge Diagnosis: 1. Acute respiratory failure secondary to ascites, and left pleural effusion 2. Alcoholic liver disease with cirrhosis 3. Ascites status post paracentesis with 5 L of fluid removed 4. Severe protein calorie malnutrition 5. Hypertension 6. Iron deficiency anemia Hospital Course: The patient was admitted to the hospital for evaluation of shortness of breath, massive ascites, and fatigue. The patient was found to have significant ascites as well as a left pleural effusion. She underwent a paracentesis were 5 L of fluid were removed. Her oxygenation improved, shortness of breath improved. Patient was found to be quite emaciated. She was seen by dietary regarding her decreased appetite. She did not require thoracentesis after fluid was removed from her abdomen. The patient remained quite weak. However she was seen by physical therapy and occupational therapy and had some improvement. She did refuse therapy on multiple occasions. The patient was started on Lasix and spironolactone. She continues to be weak but overall feels better than admission. She in general has poor functional status and needs ongoing therapy to be safe for discharge home. Patient has had no further hypoxia, shortness of breath, and feels somewhat better. As such she was deemed appropriate for discharge. Status at Discharge Cognitive/behavioral status at discharge: oriented Functional status at discharge: uses cane/walker Overall status at discharge: patient is not back to baseline Exam Vital Signs (past 8 hours): - 12/17/20 05:00 12/17/20 05:21 12/17/20 07:31 Temperature 98.0 F 97.7 F Pulse Rate 91 H 91 H Respiratory Rate 16 16 Blood Pressure 120/67 116/77 Pulse Oximetry 93 93 93 12/17/20 08:48 Temperature Pulse Rate Respiratory Rate Blood Pressure Pulse Oximetry 94 Oxygen Delivery Method Room Air Oxygen Flow Rate 0 Narrative Exam Narrative: Emaciated ill-appearing female lying in bed Chest Other: Chest with multiple spider angiomata Resp Other: Lungs: Decreased breath sounds on the left, clear breath sounds on the right Cardio Other: Cardiac exam: Regular rate and rhythm normal S1-S2 with a 2/6 systolic ejection murmur GI Other: Abdomen soft, distended, with positive fluid wave, spleen is palpable, l iver edge is not palpated Extrem Other: Extremities: 1+ edema bilaterally Objective Labs Result Diagrams: 12/16/20 05:35 12/16/20 05:35 [facility] Medical History (Updated 12/15/20 @ 04:32 by SUSIE Pittman) Alcohol abuse, in remission Alcoholic cirrhosis of liver with ascites Chronic back pain History of ectopic History of ectopic Hypertension Iron deficiency anemia due to chronic blood loss Surgical History (Updated 12/15/20 @ 04:32 by SUSIE Pittman) History of cholecystectomy History of cholecystectomy No pertinent past surgical history Family History (Updated 12/15/20 @ 04:33 by SUSIE Pittman) Grandmother Hypertension Mother Hyperthyroidism Sister Hyperthyroidism Social History household members: significant other Smoking Status: Former smoker alcohol intake: former Discharge Assessment & Plan Assessment and Plan Assessment: 1. Acute hypoxic respiratory failure, present on admission, now resolved 2. Massive ascites, secondary to alcoholic liver disease, with associated cirrhosis 3. Left pleural effusion 4. Hypertension 5. Protein calorie malnutrition Plan of Treatment: Patient will be discharged to [facility] She has been started on Lasix and spironolactone for control of her ascites As the patient is hypotensive her atenolol will be held Discharge Plan Discharge Plan Patient Disposition: SNF Transfer to: [facility] Transportation: Cabulance Consult as needed: Dental, Hearing, Mental health, Podiatry and Vision I certify the postop hospital group home care is medically necessary on a continuing basis for any conditions for which he/ she received care during this hospitalization.: Yes The receiving facility has agreed to accept transfer and provide medical treatment.: Yes Discharge orders & Medications Prescriptions: New spironolactone 100 mg tablet 100 mg PO DAILY Qty: 30 RF: 0 pantoprazole 20 mg Tablet,Delayed Release (Dr/Ec) 20 mg PO 0600 Qty: 30 RF: 0 furosemide [Lasix] 40 mg tablet 40 mg PO DAILY Qty: 30 RF: 0 Discontinued atenolol 50 mg Tablet 50 mg PO DAILY RF: 0 Follow up/Referrals: Elena Carter MD [Primary Care Provider] - Discharge Health Status Multidrug resistant organism: No MDRO Diet/Activity/Treatments Diet: Diet as Tolerated Liquid consistency: Normal/Thin Food texture: Regular [facility] Reason for rehabilitation: Recovery r/t decondition Rehab type: Physical therapy and Occupational therapy Discharge Data Primary Care Provider: Elena Carter Attending Provider: Tomasa Mishra
--- NOTE | 2020-12-17 12:14 | CM.DPC ---
DCP/continued: Reviewed chart. Received call from September at [facility] indicating that authorization for SNF received. Notified Dr. Noble and SNF orders written. Met with patient explained CM/SW role. Patient agreeable to short SNF stay. Patient notified that upon entering SNF she will be in quarantine [id number]. Per notes patient is not vaccinated which requires her to quarantine. Patient made aware and is agreeable. Faxed clinical to September at [facility] and she reports patient will be picked up around 2:00pm today. RN given number to call report. No additional needs identified. Patient requesting CM team call her spouse Max to inform him of d/c. SO[employer] attempted home and cell number listed in EMR. Both no answer and mailbox full. P: [facility] today. RN given number to call reports. Clinicals and PASRR completed and faxed. TRUONG Gaxiola
[2020-12-17 12:42] LABS: COVID19 -Nasal RAPID Negative (Negative)
--- NOTE | 2020-12-17 13:36 | CM.DPNOTE ---
Faxed covid result at September's request to [facility] and received fax conf. Meghan Adams CM Asst.
--- NOTE | 2020-12-17 14:34 | PC.NURSE ---
Pt A&O x3 this a.m. VSS, afebrile on RA. Denies cough, pain or SOB. Pt up to BR independently although slightly weak with ADL's. She has a fair appetite this a.m. denies n/v. Ascites to abdomen, firm. Pt verbalizes understanding of discharge plan and prepared for discharge to [facility] this afternoon. Transporter running slightly late and patient became anxious and started yelling. Was able to redirect and lie down while awaiting transport to [facility]. At 1420 patient transported via w/chair with all of her belongings and discharge packet given to [facility].
== END 2020-12-17 14:20 ==
LOC: ED 21:08 → AC 21:20
PROVIDERS: Internal Medicine; Admitting Provider Nurse Practitioner Family; Emergency Provider Student in an Organized Health Care Education/Training Program; PCP Family Medicine; Referring Provider Student in an Organized Health Care Education/Training Program; Visit Provider Nurse Practitioner Family
DX: J96.00 Acute respiratory failure, unspecified whether with hypoxia or hypercapnia (principal); J90 Pleural effusion, not elsewhere classified; K70.31 Alcoholic cirrhosis of liver with ascites; R10.9 Unspecified abdominal pain; I10 Essential (primary) hypertension; F10.11 Alcohol abuse, in remission; D50.9 Iron deficiency anemia, unspecified; E43 Unspecified severe protein-calorie malnutrition; Z20.822 Contact with and (suspected) exposure to COVID-19
CPT/HCPCS: 36415; 49082; 49083; 71046; 71275; 76705; 80048; 80053; 80061; 82140; 82607; 82728; 82962; 83540; 83550; 83690; 83735; 83880; 84145; 85025; 85379; 85610; 85730; 87633; 87635; 93005; 94760; 96361; 96374; 97162; 99284; C9803; G0378; U0003; C9113; J3430; Q9967

== ENCOUNTER → 2021-03-11 09:17 | Outpatient (CLI) | payer MEDICARE, MEDICAID, SELFPAY ==
[2020-12-15 00:48] VITALS: BMI 22.7
[2021-03-11 09:59] LABS: Add Manual Diff / Slide Review NO; Basophils Absolute Auto 0 /uL (0-100); Eosinophils Absolute Auto 100 /uL (0-450); Eosinophils Percent Auto 1.6 % (2-4); Hematocrit 31.1 % (36-46); Hemoglobin 9.9 g/dL (12.0-16.0); Lymphocytes Absolute Auto 1000 /uL (1100-4500); Lymphocytes Percent Auto 24.5 % (25-40); Mean Corpuscular HGB Conc 31.8 % (30-36); Mean Corpuscular Hemoglobin 25.1 PG (26-34); Mean Corpuscular Volume 78.9 fL (80-100); Monocytes Absolute Auto 300 /uL (0-900); Monocytes Percent Auto 7.9 % (3-14); Neutrophils Absolute Auto 2700 /uL (1500-7000); Platelet Count 149 X10^3/uL (150-400); Red Blood Cell Count 3.94 X10^6/uL (4.0-5.2); Red Cell Distribution Width 27.4 % (11.6-14.8); White Blood Cell Count 4.2 X10^3/uL (4.5-11.0)
[2021-03-11 10:01] LABS: INR 1.6 (0.9-1.3); Prothrombin Time 18.3 SECONDS (10.1-12.7)
[2021-03-11 10:03] LABS: PTT Partial Thromboplastin Tim 42 SECONDS (26.4-36.2)
[2021-03-11 10:13] LABS: Ammonia (NH3) < 9 umol/L (9-30)
[2021-03-11 10:21] LABS: Alanine Aminotransferase 124 IU/L (<35); Albumin 2.8 g/dL (3.5-5.0); Albumin Globulin Ratio 0.8 (1.0-2.8); Alkaline Phosphatase 82 U/L (38-126); Aspartate Aminotransferase 324 IU/L (14-36); BUN Creatinine Ratio 23.2 (6-22); Blood Urea Nitrogen 26 mg/dL (7-17); Calcium 8.2 mg/dL (8.4-10.2); Carbon Dioxide 20 mmol/L (22-32); Chloride 109 mmol/L (98-107); Estimated Glomerular Filt Rate 48.1 mL/min (>60); Globulin 3.5 g/dL (1.7-4.1); Glucose 94 mg/dL (80-110); HEMOLYSIS < 15 (0-50); Potassium 3.5 mmol/L (3.4-5.1); Sodium 138 mmol/L (137-145); Total Protein 6.3 g/dL (6.3-8.2)
[2021-03-11 11:01] LABS: Microcytosis 1+; Ovalocytes 2+
[2021-03-11 11:02] LABS: Hypochromasia 1+; Schistocytes 2+
== END ==
PROVIDERS: PCP Family Medicine; Referring Provider Family Medicine; Visit Provider Family Medicine
DX: D50.0 Iron deficiency anemia secondary to blood loss (chronic) (principal); K70.31 Alcoholic cirrhosis of liver with ascites; R16.0 Hepatomegaly, not elsewhere classified
CPT/HCPCS: 36415; 80053; 82140; 85025; 85610; 85730

== ENCOUNTER 2021-04-17 13:45 | Emergency (ER) | payer MEDICARE, MEDICAID, SELFPAY ==
[2020-12-15 00:48] VITALS: BMI 22.7
[2021-04-17] VITALS (10 sets, daily range): BP systolic 109–149; BP diastolic 55–96; PULSE 77–116; RESP 18–43; TEMP 36.7; O2SAT 98–100; BMI 20.9
--- NOTE | 2021-04-17 14:50 | ED.WEAKNESS ---
HPI - Weakness General Chief complaint: Weakness Stated complaint: generalized weakness/ Liver failure Time Seen by Provider: 04/17/21 14:17 Source: patient and EMS History of Present Illness HPI Narrative: Patient is a 70-year-old female with history of alcoholic liver disease and ascites presenting with generalized weakness. She was admitted to the hospital in the end of November to December for of pleural effusion secondary to ascites. She had paracentesis at that time with 5 L removed. She has since been seen by GI over she states that she has not been started on any medication because they wanted blood work. They tried to give blood work last week however due to the holiday they will her closed and unsuccessful. She has progressively become more weak. She denies any abdominal pain although her abdomen is becoming more distended she has no chest pain or shortness of breath. She denies any fever. She is able to get up and go to the restroom. She just is generally weak. Related Data Previous Rx's Medication Instructions Recorded trazodone 50 mg tablet 25 mg PO BEDTIME PRN #30 tab 03/10/21 Allergies Allergy/AdvReac Type Severity Reaction Status Date / Time erythromycin base Allergy Unknown Gastrointestinal Verified 12/14/20 15:42 [ERYTHROMYCIN BASE] Upset Review of Systems Review of Systems Narrative: GENERAL: Generalized weakness, denies fever, see HPI HEENT: Denies sinus pain, ear pain, sore throat, difficulty swallowing, neck pain RESPIRATORY: Denies dyspnea, cough, wheezing, hemoptysis, sputum. CARDIOVASCULAR: Denies chest pain, palpitations, orthopnea, edema GASTROINTESTINAL: See HPI : Denies dysuria, frequency, incontinence, hematuria, urinary retention, flank pain. MUSCULOSKELETAL: Denies weakness, joint pain, or bony pain SKIN: No rash, no erythema, no pruritus NEUROLOGIC: Denies weakness, dizziness, headache, numbness, change in speech, confusion PSYCHIATRIC: No concerning psychosocial issues. 12 point review of systems is negative except for those stated above and HPI Patient History Medical History (Updated 04/17/21 @ 17:36 by Nabila Faria DO) Alcohol abuse, in remission Alcoholic cirrhosis of liver with ascites Chronic back pain History of ectopic History of ectopic Hypertension Insomnia Iron deficiency anemia due to chronic blood loss Surgical History (Updated 12/15/20 @ 04:32 by SUSIE Pittman) History of cholecystectomy History of cholecystectomy No pertinent past surgical history Family History (Updated 12/15/20 @ 04:33 [facility] Grandmother Hypertension Mother Hyperthyroidism Sister Hyperthyroidism Social History household members: significant other Smoking Status: Former smoker alcohol intake: former Smoking Status: Former smoker alcohol intake frequency: 3 or more drinks per day Alcohol type: hard liquor Substance Use Type: marijuana Exam Initial Vital Signs Initial Vital Signs: Vital Signs Temperature 98.1 F 04/17/21 13:50 Pulse Rate 89 04/17/21 13:50 Respiratory Rate 24 04/17/21 13:50 Blood Pressure 120/78 04/17/21 13:50 Pulse Oximetry 99 04/17/21 13:50 GENERAL: Alert chronically ill 70-year-old female no acute distress HEENT: Head atraumatic,EOMI, pupils reactive, face symmetric, moist mucous membranes CARDIOVASCULAR: Regular rate and rhythm without murmurs, rubs or gallops. RESPIRATORY: Breath sounds equal bilaterally, no wheezes rales or rhonchi. ABDOMEN: Soft, positive fluid wave enlarged non tender non erythematous EXTREMITIES: Normal range of motion, no clubbing or edema. Neurovascularly intact NEUROLOGICAL: Alert and oriented x4.Normal gait and speech. SKIN: Warm, dry, no laceration, no petechiae, no rashes or lesions. Procedures Paracentesis Local Anesthetic: lidocaine 1% Amount of anesthesia used (mL): 3 Fluid: clear (3L) Post Procedure Exam: awake, alert, normal BP, normal HR and normal SpO2 Complications: other (ascites fluid leakage from site, 1 suture placed) Course Orders Ordered: ED Orders 04/17/21 14:25 COVID19 -Nasal swab/Pre-Proc Stat 04/17/21 14:40 Complete Blood Count AUTO DIFF Stat Comprehensive Metabolic Panel Stat LDH [Lactate Dehydrogenase] Stat Lipase Stat Partial Thromboplastin Time Stat Procalcitonin Stat Prothrombin Time INR Stat 04/17/21 15:00 US abdomen limited Stat 04/17/21 17:00 Blood Culture Stat 04/17/21 17:37 Body Fluid Culture Stat Cell Count w Diff Body Fluid Stat LDH Body Fluid Stat Total Protein Body Fluid Stat Vital Signs Vital signs: Vital Signs - 8 hr 04/17/21 13:50 04/17/21 14:24 04/17/21 14:30 Temperature 98.1 F Pulse Rate 89 80 82 Respiratory Rate 24 18 Blood Pressure 120/78 109/64 118/66 Pulse Oximetry 99 99 98 04/17/21 15:00 04/17/21 15:30 04/17/21 16:00 Temperature Pulse Rate 83 97 H 81 Respiratory Rate 19 22 20 Blood Pressure 125/69 142/75 H 119/55 L Pulse Oximetry 100 99 04/17/21 16:30 04/17/21 17:00 04/17/21 17:30 Temperature Pulse Rate 85 116 H 79 Respiratory Rate 27 H 24 41 H Blood Pressure 145/78 H 149/96 H 127/62 Pulse Oximetry 99 04/17/21 18:00 Temperature Pulse Rate 77 Respiratory Rate 43 H Blood Pressure 128/63 Pulse Oximetry MDM - Weakness Lab Data Result diagrams: 04/17/21 14:40 04/17/21 14:40 Labs: Lab Results 04/17/21 04/17/21 04/17/21 Range/Units 14:25 14:40 14:40 WBC 6.6 (4.5-11.0) X10^3/uL RBC 4.38 (4.0-5.2) X10^6/uL Hgb 11.3 L (12.0-16.0) g/dL Hct 35.9 L (36-46) % MCV 82.0 (80-100) fL MCH 25.7 L (26-34) PG MCHC 31.4 (30-36) % RDW 16.8 H (11.6-14.8) % Plt Count 125 L (150-400) X10^3/uL Neut % (Auto) 65.8 (50-75) % Lymph % (Auto) 21.2 L (25-40) % [place] % (Auto) 10.4 (3-14) % Eos % (Auto) 1.5 L (2-4) % Baso % (Auto) 1.1 (0-2) % Neut # (Auto) 4300 (8098-9545) /uL Lymph # (Auto) 1400 (9591-6179) /uL [place] # (Auto) 700 (0-900) /uL Eos # (Auto) 100 (0-450) /uL Baso # (Auto) 100 (0-100) /uL PT 18.4 H (10.1-12.7) SECONDS INR 1.6 H (0.9-1.3) APTT 35 D (26.4-36.2) SECONDS Sodium (137-145) mmol/L Potassium (3.4-5.1) mmol/L Chloride (98-107) mmol/L Carbon Dioxide (22-32) mmol/L BUN (7-17) mg/dL Creatinine (0.52-1.04) mg/dL Estimated GFR (>60) mL/min BUN/Creatinine Ratio (6-22) Glucose (80-110) mg/dL Calcium (8.4-10.2) mg/dL Total Bilirubin (0.2-1.3) mg/dL AST (14-36) IU/L ALT (<35) IU/L Alkaline Phosphatase (38-126) U/L Lactate Dehydrogenase (313-618) U/L Total Protein (6.3-8.2) g/dL Albumin (3.5-5.0) g/dL Globulin (1.7-4.1) g/dL Albumin/Globulin Ratio (1.0-2.8) Lipase (23-300) U/L Procalcitonin (<0.5) ng/mL Fluid Color Fluid Appearance Fluid RBC /uL Fld Tot Nucleated Cell /uL Fluid Polynuclear WBCs % Fluid Mononuclear WBCs % Fluid Eosinophils % Fluid Other Cells % Body Fluid Clot Fluid Total Protein g/dL Fluid LDH U/L SARS-CoV-2 (PCR) Negative (Negative) 04/17/21 04/17/21 04/17/21 Range/Units 14:40 14:40 14:40 WBC (4.5-11.0) X10^3/uL RBC (4.0-5.2) X10^6/uL Hgb (12.0-16.0) g/dL Hct (36-46) % MCV (80-100) fL MCH (26-34) PG MCHC (30-36) % RDW (11.6-14.8) % Plt Count (150-400) X10^3/uL Neut % (Auto) (50-75) % Lymph % (Auto) (25-40) % [place] % (Auto) (3-14) % Eos % (Auto) (2-4) % Baso % (Auto) (0-2) % Neut # (Auto) (7319-2171) /uL Lymph # (Auto) (8852-4198) /uL [place] # (Auto) (0-900) /uL Eos # (Auto) (0-450) /uL Baso # (Auto) (0-100) /uL PT (10.1-12.7) SECONDS INR (0.9-1.3) APTT (26.4-36.2) SECONDS Sodium 138 (137-145) mmol/L Potassium 3.3 L (3.4-5.1) mmol/L Chloride 107 (98-107) mmol/L Carbon Dioxide 26 (22-32) mmol/L BUN 12 (7-17) mg/dL Creatinine 0.61 (0.52-1.04) mg/dL Estimated GFR > 60.0 (>60) mL/min BUN/Creatinine Ratio 19.7 (6-22) Glucose 107 (80-110) mg/dL Calcium 8.2 L (8.4-10.2) mg/dL Total Bilirubin 2.0 H (0.2-1.3) mg/dL AST 23 (14-36) IU/L ALT 10 (<35) IU/L Alkaline Phosphatase 54 (38-126) U/L Lactate Dehydrogenase 426 (313-618) U/L Total Protein 6.3 (6.3-8.2) g/dL Albumin 2.8 L (3.5-5.0) g/dL Globulin 3.5 (1.7-4.1) g/dL Albumin/Globulin Ratio 0.8 L (1.0-2.8) Lipase 75 (23-300) U/L Procalcitonin 0.05 (<0.5) ng/mL Fluid Color Fluid Appearance Fluid RBC /uL Fld Tot Nucleated Cell /uL Fluid Polynuclear WBCs % Fluid Mononuclear WBCs % Fluid Eosinophils % Fluid Other Cells % Body Fluid Clot Fluid Total Protein g/dL Fluid LDH U/L SARS-CoV-2 (PCR) (Negative) 04/17/21 Range/Units 17:37 WBC (4.5-11.0) X10^3/uL RBC (4.0-5.2) X10^6/uL Hgb (12.0-16.0) g/dL Hct (36-46) % MCV (80-100) fL MCH (26-34) PG MCHC (30-36) % RDW (11.6-14.8) % Plt Count (150-400) X10^3/uL Neut % (Auto) (50-75) % Lymph % (Auto) (25-40) % [place] % (Auto) (3-14) % Eos % (Auto) (2-4) % Baso % (Auto) (0-2) % Neut # (Auto) (5279-2601) /uL Lymph # (Auto) (4208-2809) /uL [place] # (Auto) (0-900) /uL Eos # (Auto) (0-450) /uL Baso # (Auto) (0-100) /uL PT (10.1-12.7) SECONDS INR (0.9-1.3) APTT (26.4-36.2) SECONDS Sodium (137-145) mmol/L Potassium (3.4-5.1) mmol/L Chloride (98-107) mmol/L Carbon Dioxide (22-32) mmol/L BUN (7-17) mg/dL Creatinine (0.52-1.04) mg/dL Estimated GFR (>60) mL/min BUN/Creatinine Ratio (6-22) Glucose (80-110) mg/dL Calcium (8.4-10.2) mg/dL Total Bilirubin (0.2-1.3) mg/dL AST (14-36) IU/L ALT (<35) IU/L Alkaline Phosphatase (38-126) U/L Lactate Dehydrogenase (313-618) U/L Total Protein (6.3-8.2) g/dL Albumin (3.5-5.0) g/dL Globulin (1.7-4.1) g/dL Albumin/Globulin Ratio (1.0-2.8) Lipase (23-300) U/L Procalcitonin (<0.5) ng/mL Fluid Color Yellow Fluid Appearance Clear Fluid RBC 137 /uL Fld Tot Nucleated Cell 79 /uL Fluid Polynuclear WBCs 1 % Fluid Mononuclear WBCs 97 % Fluid Eosinophils 0 % Fluid Other Cells 2 % Body Fluid Clot No clots present Fluid Total Protein < 2.0 g/dL Fluid LDH 138 U/L SARS-CoV-2 (PCR) (Negative) Imaging Data US - abdomen: Radiologist Impression: PROCEDURE: US ABDOMEN LIMITED ? INDICATIONS:? ascites ? TECHNIQUE:? Real-time focused scanning was performed of the abdomen, with image documentation.? ? COMPARISON:? [facility], US, US ABDOMEN LIMITED, 12/15/2020, 8:55. ? FINDINGS:? Ultrasound scanning was performed for marking for paracentesis to be performed by the referring physician.? The left lower quadrant was marked.? The distance from the skin to the peritoneal cavity is 1.4 cm.? The distance to the center of the fluid pocket is 8 cm. ? IMPRESSION:? ? Ultrasound guided skin marking, for performance of a paracentesis. ? ? Dictated by: Jeferson Coleman M.D. on 04/17/2021 at 15:27 ? ? MDM Narrative Medical decision making narrative: Patient overall appears chronically ill. She has not been off started on medications from GI, unclear why this is. Answering questions at this time unlikely to be hepatic encephalopathy. Paracentesis was done fluid sent to lab 3L easily removed she feels bit better. Unlikely SBP she is afebrile no leukocytosis negative procalcitonin nonetheless fluid is sent and culture pending. She does need to have re-evaluation with GI, and probably started back on Lasix spironolactone. It looks as though she was previously on it stops taking it and did not notice any difference. At this time she does not meet admission criteria. Discharge Plan Departure Patient Disposition: Home Clinical Impression: Alcoholic cirrhosis of liver with ascites Activity Restrictions/Additional Instructions: *You have been diagnosed with ascites *What to do: At this time please follow-up with your GI doctor and her primary care provider. You may need to be restarted on your medications You had 3 L of fluid removed from her abdomen, this will likely reaccumulate eventually will need to be taken off again. 1 suture needs removed in 5 days by your primary provider *Continue to take medications as directed *Follow up with your primary care provider in 2-3 days or call [phone] *Return to ER if you should have increased abdominal pain, fever, or difficulty breathingany new, worsening or concerning symptoms Prescriptions: No Action trazodone 50 mg tablet 25 mg PO BEDTIME PRN (Reason: insomnia) Qty: 30 0RF Referrals: Kameron Cody MD [Primary Care Provider] -
[2021-04-17 14:53] LABS: Add Manual Diff / Slide Review NO; Basophils Absolute Auto 100 /uL (0-100); Basophils Percent Auto 1.1 % (0-2); Eosinophils Absolute Auto 100 /uL (0-450); Eosinophils Percent Auto 1.5 % (2-4); Hematocrit 35.9 % (36-46); Hemoglobin 11.3 g/dL (12.0-16.0); Lymphocytes Absolute Auto 1400 /uL (1100-4500); Lymphocytes Percent Auto 21.2 % (25-40); Mean Corpuscular HGB Conc 31.4 % (30-36); Mean Corpuscular Hemoglobin 25.7 PG (26-34); Monocytes Absolute Auto 700 /uL (0-900); Monocytes Percent Auto 10.4 % (3-14); Neutrophils Absolute Auto 4300 /uL (1500-7000); Neutrophils Percent Auto 65.8 % (50-75); Platelet Count 125 X10^3/uL (150-400); Red Blood Cell Count 4.38 X10^6/uL (4.0-5.2); Red Cell Distribution Width 16.8 % (11.6-14.8); White Blood Cell Count 6.6 X10^3/uL (4.5-11.0)
[2021-04-17 14:58] LABS: INR 1.6 (0.9-1.3); Prothrombin Time 18.4 SECONDS (10.1-12.7)
--- NOTE | 2021-04-17 15:00 | DI.US.S_ITS ---
PROCEDURE: US ABDOMEN LIMITED INDICATIONS: ascites TECHNIQUE: Real-time focused scanning was performed of the abdomen, with image documentation. COMPARISON: [facility], , US ABDOMEN LIMITED, 12/15/2020, 8:55. FINDINGS: Ultrasound scanning was performed for marking for paracentesis to be performed by the referring physician. The left lower quadrant was marked. The distance from the skin to the peritoneal cavity is 1.4 cm. The distance to the center of the fluid pocket is 8 cm. IMPRESSION: Ultrasound guided skin marking, for performance of a paracentesis. Dictated by: Jeferson Coleman M.D. on 04/17/2021 at 15:27 Approved by: Jeferson Coleman M.D. on 04/17/2021 at 15:27
[2021-04-17 15:01] LABS: PTT Partial Thromboplastin Tim 35 SECONDS (26.4-36.2)
[2021-04-17 15:03] LABS: Alanine Aminotransferase 10 IU/L (<35); Albumin 2.8 g/dL (3.5-5.0); Albumin Globulin Ratio 0.8 (1.0-2.8); Alkaline Phosphatase 54 U/L (38-126); Aspartate Aminotransferase 23 IU/L (14-36); BUN Creatinine Ratio 19.7 (6-22); Blood Urea Nitrogen 12 mg/dL (7-17); Calcium 8.2 mg/dL (8.4-10.2); Carbon Dioxide 26 mmol/L (22-32); Chloride 107 mmol/L (98-107); Estimated Glomerular Filt Rate > 60.0 mL/min (>60); Globulin 3.5 g/dL (1.7-4.1); Glucose 107 mg/dL (80-110); HEMOLYSIS 17 (0-50); Lipase 75 U/L (23-300); Potassium 3.3 mmol/L (3.4-5.1); Sodium 138 mmol/L (137-145); Total Protein 6.3 g/dL (6.3-8.2)
[2021-04-17 15:08] LABS: COVID19 -Nasal RAPID Negative (Negative)
[2021-04-17 17:01] LABS: Procalcitonin 0.05 ng/mL (<0.5)
[2021-04-17 18:03] LABS: Lactate Dehydrogenase 426 U/L (313-618)
[2021-04-17 18:11] LABS: LDH Body Fluid 138 U/L; Total Protein Body Fluid < 2.0 g/dL
[2021-04-17 18:43] LABS: Body Fluid Red Blood Cells 137 /uL; Body Fluid Tot Nucleated Cells 79 /uL
[2021-04-17 18:57] LABS: Body Fluid Color YELLOW
[2021-04-17 18:58] LABS: Body Fluid Appearance CLEAR; Body Fluid Clotted? NO CLOTS PRESENT; Eosinophils Body Fluid 0 %; Mononuclear WBC Body Fluid 97 %; Other Cells Body Fluid 2 %; Polynuclear WBC Body Fluid 1 %
== END 2021-04-17 18:45 | disposition home or self-care (01) ==
PROVIDERS: Emergency Provider Emergency Medicine; PCP Family Medicine
DX: K70.31 Alcoholic cirrhosis of liver with ascites (principal); Z20.822 Contact with and (suspected) exposure to COVID-19
CPT/HCPCS: 36415; 49083; 76705; 80053; 83615; 83690; 84145; 84157; 85025; 85610; 85730; 87040; 87070; 87075; 87205; 87635; 89051; 99284; C9803

== ENCOUNTER 2021-04-19 16:17 | Emergency (ER) | payer MEDICARE, MEDICAID, SELFPAY ==
[2020-12-15 00:48] VITALS: BMI 22.7
[2021-04-19 17:02] VITALS: BP 108/64; PULSE 101; RESP 22; TEMP 37; O2SAT 98; BMI 18.4
[2021-04-19] MEDS: OXYCODONE IR 5 MG TABLET PO (18:23)
[2021-04-19 18:45] LABS: Add Manual Diff / Slide Review NO; Basophils Absolute Auto 100 /uL (0-100); Eosinophils Absolute Auto 100 /uL (0-450); Hematocrit 35.8 % (36-46); Hemoglobin 11.6 g/dL (12.0-16.0); Lymphocytes Absolute Auto 1200 /uL (1100-4500); Lymphocytes Percent Auto 17.8 % (25-40); Mean Corpuscular HGB Conc 32.3 % (30-36); Mean Corpuscular Volume 80.4 fL (80-100); Monocytes Absolute Auto 800 /uL (0-900); Monocytes Percent Auto 11.5 % (3-14); Neutrophils Absolute Auto 4800 /uL (1500-7000); Neutrophils Percent Auto 68.7 % (50-75); Platelet Count 123 X10^3/uL (150-400); Red Blood Cell Count 4.45 X10^6/uL (4.0-5.2); Red Cell Distribution Width 16.8 % (11.6-14.8); White Blood Cell Count 6.9 X10^3/uL (4.5-11.0)
[2021-04-19 18:53] LABS: Alanine Aminotransferase 9 IU/L (<35); Albumin 2.6 g/dL (3.5-5.0); Albumin Globulin Ratio 0.8 (1.0-2.8); Alkaline Phosphatase 54 U/L (38-126); Aspartate Aminotransferase 23 IU/L (14-36); Bilirubin Total 1.6 mg/dL (0.2-1.3); Blood Urea Nitrogen 13 mg/dL (7-17); Carbon Dioxide 27 mmol/L (22-32); Chloride 105 mmol/L (98-107); Estimated Glomerular Filt Rate > 60.0 mL/min (>60); Globulin 3.4 g/dL (1.7-4.1); Glucose 95 mg/dL (80-110); HEMOLYSIS 27 (0-50); Lipase 103 U/L (23-300); Potassium 3.1 mmol/L (3.4-5.1); Sodium 137 mmol/L (137-145)
--- NOTE | 2021-04-19 19:06 | PC.NURSE ---
pt upset at having to wait so long to see the provider. Pt requesting to leave.
--- NOTE | 2021-04-19 20:16 | ED_ITS ---
HPI - Abdominal Pain General Chief Complaint: Abdominal Pain Stated Complaint: Stomach hurts and swollen Time Seen by Provider: 04/19/21 18:16 Source: patient Mode of arrival: Family Vehicle Limitations: no limitations History of Present Illness HPI narrative: This is a 70-year-old comes to the emergency department with complaint of ascites secondary to alcoholic cirrhosis. Patient denies fevers or chills. She has had discomfort in her abdomen. She denies chest pain or shortness of breath. She denies nausea or vomiting. No diarrhea or urinary symptoms. She does not believe she has any varices. She does not think she has had an EGD or scope. She is supposed to be on medications including atenolol but she has not been taking these. Unclear if there not being prescribed or if she is not following up. She has had her last several paracentesis here most recently on the 17 of April. Patient does appear alert and appropriate. She denies other major surgeries. She states she is allergic to erythromycin. She states she no longer drinks alcohol. She states she has a primary care physician but has not been following regularly with them. She does live with family including her and son. Related Data Previous Rx's Medication Instructions Recorded trazodone 50 mg tablet 25 mg PO BEDTIME PRN #30 tab 03/10/21 Allergies Allergy/AdvReac Type Severity Reaction Status Date / Time erythromycin base Allergy Unknown Gastrointestinal Verified 04/19/21 17:02 [ERYTHROMYCIN BASE] Upset Review of Systems Review of Systems ROS Unobtainable: All systems reviewed & are unremarkable except as noted in HPI and below Patient History Medical History Alcohol abuse, in remission Alcoholic cirrhosis of liver with ascites Chronic back pain History of ectopic History of ectopic Hypertension Insomnia Iron deficiency anemia due to chronic blood loss Surgical History History of cholecystectomy History of cholecystectomy No pertinent past surgical history Family History Grandmother Hypertension Mother Hyperthyroidism Sister Hyperthyroidism Social History household members: significant other Smoking Status: Former smoker alcohol intake: former Smoking Status: Former smoker alcohol intake frequency: 0-2 drinks per day Alcohol type: hard liquor Substance Use Type: marijuana Exam Narrative Exam Narrative: GENERAL: Alert and oriented x three, female in mild distress. HEENT: Head normocephalic, atraumatic, EOMI, pupils reactive, face symmetric, moist mucous membranes NECK: Supple, full range of motion CARDIOVASCULAR: Regular rate and rhythm without murmurs, rubs or gallops. No tachypnea or accessory muscle use. RESPIRATORY: Breath sounds equal bilaterally, no wheezes rales or rhonchi. ABDOMEN: Soft, nontender, distended with fluid wave. Nontender to palpation. Normoactive bowel sounds all 4 quadrants. No guarding or rebound, rigidity, no mass. Patient does have a suture on the left at this site of her prior paracentesis 2 days ago. : No CVA tenderness EXTREMITIES: Normal range of motion, no clubbing or edema. Neurovascularly intact NEUROLOGICAL: Cranial nerves II through XII grossly intact. Moving all extremi ties SKIN: Warm, dry, no petechiae, no rashes or lesions. Initial Vital Signs Initial Vital Signs: Vital Signs Temperature 98.6 F 04/19/21 17:02 Pulse Rate 101 H 04/19/21 17:02 Respiratory Rate 22 04/19/21 17:02 Blood Pressure 108/64 04/19/21 17:02 Pulse Oximetry 98 04/19/21 17:02 Procedures Paracentesis Time of procedure: 23:02 Time Out Performed: Yes Local Anesthetic: lidocaine 1% Amount of anesthesia used (mL): 3 Fluid: clear Post Procedure Exam: awake, alert, normal HR and normal SpO2 Patient Tolerated Procedure: Well Complications: none Scores GCS Germán coma scale eye opening: Spontaneous [place] coma scale verbal response: Orientated [place] coma scale motor response: Obey commands [place] coma scale total score: 15 Course Orders Ordered: ED Orders 04/19/21 20:32 US abdomen limited Stat 04/19/21 20:52 EKG-12 Lead Routine 04/19/21 21:00 Ammonia (NH3) Stat 04/19/21 23:00 Cell Count w Diff Body Fluid Stat Discontinued Medications Morphine Sulfate (Morphine 2 Mg/Ml Inj) 2 mg IV NOW ONE Stop: 04/19/21 20:34 Last Admin: 04/19/21 21:11 Dose: 2 mg Documented by: BRYCE Oxycodone HCl (Oxycodone Ir 5 Mg Tablet) 5 mg PO NOW ONE Stop: 04/19/21 18:17 Last Admin: 04/19/21 18:23 Dose: 5 mg Documented by: BRYCE Potassium Chloride (Potassium Chloride 20 Meq/15 Ml Udc) 40 meq PO NOW ONE Stop: 04/19/21 22:00 Last Admin: 04/20/21 00:38 Dose: Not Given Documented by: HEDY Potassium Chloride (Potassium Chloride 10 Meq Tab) 40 meq PO NOW ONE Stop: 04/20/21 00:12 Last Admin: 04/20/21 00:39 Dose: 40 meq Documented by: HEDY Reevaluation(s) Reevaluation #1: Review patient's labs today. She has some mild hypokalemia tolerated orals. After discussion and much back and forth we discussed patient would be appropriate for outpatient follow-up for paracentesis but I am willing to offer today as I suspect she will become more symptomatic if untreated. Patient was here quite recently for her last paracentesis. Patient and I will discussed returning to her physician and getting restarted on her medications but she seems reluctant to do so. Patient ultimately decided to have paracentesis. Reevaluation #2: Patient tolerated paracentesis well. She has been up and ambulated without any issue. Does not appear to have any leakage from the site. Patient about 3 and half to 4 L fluid removed she had a mild drop in her blood pressure but not persistent. Albumin was deferred she did not have more than 4 L removed at this time. Vital Signs Vital signs: Vital Signs - 8 hr 04/19/21 23:38 04/20/21 00:00 04/20/21 00:30 Pulse Rate 79 77 77 Blood Pressure 105/56 L 111/59 L Pulse Oximetry 98 99 99 04/20/21 00:51 04/20/21 00:53 Pulse Rate 91 H Blood Pressure 126/61 Pulse Oximetry 95 97 MDM - Abdominal Pain Lab Data Result diagrams: 04/19/21 18:30 04/19/21 18:30 Labs: Lab Results 04/19/21 04/19/21 04/19/21 Range/Units 18:30 18:30 18:30 WBC 6.9 (4.5-11.0) X10^3/uL RBC 4.45 (4.0-5.2) X10^6/uL Hgb 11.6 L (12.0-16.0) g/dL Hct 35.8 L (36-46) % MCV 80.4 (80-100) fL MCH 26.0 (26-34) PG MCHC 32.3 (30-36) % RDW 16.8 H (11.6-14.8) % Plt Count 123 L (150-400) X10^3/uL Neut % (Auto) 68.7 (50-75) % Lymph % (Auto) 17.8 L (25-40) % [place] % (Auto) 11.5 (3-14) % Eos % (Auto) 1.0 L (2-4) % Baso % (Auto) 1.0 (0-2) % Neut # (Auto) 4800 (7128-0192) /uL Lymph # (Auto) 1200 (0267-8563) /uL [place] # (Auto) 800 (0-900) /uL Eos # (Auto) 100 (0-450) /uL Baso # (Auto) 100 (0-100) /uL PT 18.7 H (10.1-12.7) SECONDS INR 1.7 H (0.9-1.3) APTT 37 H (26.4-36.2) SECONDS Sodium 137 (137-145) mmol/L Potassium 3.1 L (3.4-5.1) mmol/L Chloride 105 (98-107) mmol/L Carbon Dioxide 27 (22-32) mmol/L BUN 13 (7-17) mg/dL Creatinine 0.65 (0.52-1.04) mg/dL Estimated GFR > 60.0 (>60) mL/min BUN/Creatinine Ratio 20.0 (6-22) Glucose 95 (80-110) mg/dL Calcium 8.0 L (8.4-10.2) mg/dL Total Bilirubin 1.6 H (0.2-1.3) mg/dL AST 23 (14-36) IU/L ALT 9 (<35) IU/L Alkaline Phosphatase 54 (38-126) U/L Ammonia (9-30) umol/L Total Protein 6.0 L (6.3-8.2) g/dL Albumin 2.6 L (3.5-5.0) g/dL Globulin 3.4 (1.7-4.1) g/dL Albumin/Globulin Ratio 0.8 L (1.0-2.8) Lipase 103 (23-300) U/L Procalcitonin (<0.5) ng/mL Fluid Color Fluid Appearance Fluid RBC /uL Fld Tot Nucleated Cell /uL Fluid Polynuclear WBCs % Fluid Mononuclear WBCs % Fluid Eosinophils Fluid Other Cells % Body Fluid Clot Ethyl Alcohol ( - 10) mg/dL 04/19/21 04/19/21 04/19/21 Range/Units 18:30 18:30 21:00 WBC (4.5-11.0) X10^3/uL RBC (4.0-5.2) X10^6/uL Hgb (12.0-16.0) g/dL Hct (36-46) % MCV (80-100) fL MCH (26-34) PG MCHC (30-36) % RDW (11.6-14.8) % Plt Count (150-400) X10^3/uL Neut % (Auto) (50-75) % Lymph % (Auto) (25-40) % [place] % (Auto) (3-14) % Eos % (Auto) (2-4) % Baso % (Auto) (0-2) % Neut # (Auto) (4543-9278) /uL Lymph # (Auto) (9159-5219) /uL [place] # (Auto) (0-900) /uL Eos # (Auto) (0-450) /uL Baso # (Auto) (0-100) /uL PT (10.1-12.7) SECONDS INR (0.9-1.3) APTT (26.4-36.2) SECONDS Sodium (137-145) mmol/L Potassium (3.4-5.1) mmol/L Chloride (98-107) mmol/L Carbon Dioxide (22-32) mmol/L BUN (7-17) mg/dL Creatinine (0.52-1.04) mg/dL Estimated GFR (>60) mL/min BUN/Creatinine Ratio (6-22) Glucose (80-110) mg/dL Calcium (8.4-10.2) mg/dL Total Bilirubin (0.2-1.3) mg/dL AST (14-36) IU/L ALT (<35) IU/L Alkaline Phosphatase (38-126) U/L Ammonia 19 (9-30) umol/L Total Protein (6.3-8.2) g/dL Albumin (3.5-5.0) g/dL Globulin (1.7-4.1) g/dL Albumin/Globulin Ratio (1.0-2.8) Lipase (23-300) U/L Procalcitonin 0.06 (<0.5) ng/mL Fluid Color Fluid Appearance Fluid RBC /uL Fld Tot Nucleated Cell /uL Fluid Polynuclear WBCs % Fluid Mononuclear WBCs % Fluid Eosinophils Fluid Other Cells % Body Fluid Clot Ethyl Alcohol < 10 ( - 10) mg/dL 04/19/21 Range/Units 23:00 WBC (4.5-11.0) X10^3/uL RBC (4.0-5.2) X10^6/uL Hgb (12.0-16.0) g/dL Hct (36-46) % MCV (80-100) fL MCH (26-34) PG MCHC (30-36) % RDW (11.6-14.8) % Plt Count (150-400) X10^3/uL Neut % (Auto) (50-75) % Lymph % (Auto) (25-40) % [place] % (Auto) (3-14) % Eos % (Auto) (2-4) % Baso % (Auto) (0-2) % Neut # (Auto) (8957-7308) /uL Lymph # (Auto) (7944-5629) /uL [place] # (Auto) (0-900) /uL Eos # (Auto) (0-450) /uL Baso # (Auto) (0-100) /uL PT (10.1-12.7) SECONDS INR (0.9-1.3) APTT (26.4-36.2) SECONDS Sodium (137-145) mmol/L Potassium (3.4-5.1) mmol/L Chloride (98-107) mmol/L Carbon Dioxide (22-32) mmol/L BUN (7-17) mg/dL Creatinine (0.52-1.04) mg/dL Estimated GFR (>60) mL/min BUN/Creatinine Ratio (6-22) Glucose (80-110) mg/dL Calcium (8.4-10.2) mg/dL Total Bilirubin (0.2-1.3) mg/dL AST (14-36) IU/L ALT (<35) IU/L Alkaline Phosphatase (38-126) U/L Ammonia (9-30) umol/L Total Protein (6.3-8.2) g/dL Albumin (3.5-5.0) g/dL Globulin (1.7-4.1) g/dL Albumin/Globulin Ratio (1.0-2.8) Lipase (23-300) U/L Procalcitonin (<0.5) ng/mL Fluid Color Yellow Fluid Appearance Clear Fluid RBC 153 /uL Fld Tot Nucleated Cell 88 /uL Fluid Polynuclear WBCs 2 % Fluid Mononuclear WBCs 98 % Fluid Eosinophils Not Reportable Fluid Other Cells 1 % Body Fluid Clot No clots present Ethyl Alcohol ( - 10) mg/dL Imaging Data US - abdomen: Radiologist's Impression: [address] [address] Ultrasound Report Signed Patient: Lilo Wright MR#: [id number] : 06/12/1958 Acct:[id number] Age/Sex: 62 / F Date of Service: 04/19/21 Loc: ED Accession Number: [id number] ?? Procedure: US abdomen limited Ordering Provider: Rubi Cerrato D.O. PROCEDURE: US ABDOMEN LIMITED ? INDICATIONS:? PAIN; N/V ? TECHNIQUE:? Real-time focused scanning was performed of the abdomen, with image documentatio n.? ? COMPARISON:? [facility], CT, CT ABDOMEN PELVIS W CON, 04/19/2021, 18:07. ? FINDINGS:? ? The liver is mildly enlarged.? No focal hepatic lesions identified. ? There is a small non impacted gallstone measuring up to 0.4 cm.? No gallbladder wall thickening or pericholecystic fluid. ? No intra or extrahepatic biliary ductal dilatation.? The visualized common bile duct measures up to 0.5 cm. ? The visualized pancreas appears sonographically unremarkable. ? IMPRESSION:? ? 1. Cholelithiasis without evidence of cholecystitis. ? 2. No biliary ductal dilatation.? ? Dictated by: Alejandro Abrams M.D. on 04/19/2021 at 21:23 ? ? Approved by: Alejandro Abrams M.D. on 04/19/2021 at 21:28? ECG Data Attestation: I personally reviewed and interpreted this ECG as follows: Interpretation: Sinus rhythm left axis deviation, rate 82 MT 186 QRS 86 and QTC 479. No acute ST elevation depression noted. MDM Narrative Medical decision making narrative: This is a 70-year-old female with known alcoholic cirrhosis he states she is no longer actively drinking. She was here recently on the for paracentesis. She has returned as she has had recurrence of fluid collection and increasing discomfort. Labs are somewhat reassuring. She I discussed she is a candidate for paracentesis she was marked by ultrasound and active procedure was performed under and also on guidance by myself. Patient tolerated the procedure well. She had almost 4 L removed. She has some mild hypokalemia. Patient is reluctant to be discharged home but is ambulating. Her labs are otherwise do not show major abnormalities or changes her vital signs that require admission. Patient and I discussed that she would benefit from following regular her pr imary care taking her regular medications for her cirrhosis. She seems reluctant to do this. OPERATIONS SUPPORT ANALYST no was left. Discharge Plan Departure Patient Disposition: Home Clinical Impression: Ascites, Hypokalemia Activity Restrictions/Additional Instructions: Your labs today shows several abnormalities including a low potassium. You did have a paracentesis today. It is recommended that you follow-up with your physician and restart your medications these will help you keep from having recurrent fluid accumulated in your belly. You should also follow-up with your physician they can set you up for regular or outpatient paracentesis which would be more convenient for you Please return for fevers, new or worsening abdominal pain, vomiting, lightheadedness or passing out, black or bloody stools or other new or concerning symptoms. Prescriptions: No Action trazodone 50 mg tablet 25 mg PO BEDTIME PRN (Reason: insomnia) Qty: 30 0RF Referrals: Kameron Cody MD [Primary Care Provider] -
[2021-04-19 20:29] LABS: INR 1.7 (0.9-1.3); Prothrombin Time 18.7 SECONDS (10.1-12.7)
[2021-04-19 20:32] LABS: PTT Partial Thromboplastin Tim 37 SECONDS (26.4-36.2)
--- NOTE | 2021-04-19 20:32 | DI.US.S_ITS ---
PROCEDURE: US ABDOMEN LIMITED INDICATIONS: ASCITIES TECHNIQUE: Real-time focused scanning was performed of the abdomen, with image documentation. COMPARISON: [facility], , US ABDOMEN LIMITED, 04/17/2021, 16:05. FINDINGS: A large amount of ascites was demonstrated. The skin was marked for paracentesis by the ultrasound technologist sonographer. At the site of localization, the ascitic fluid was approximately 1.3 cm deep to the skin. The center of the visualized fluid pocket with approximately 6 cm deep to the skin. IMPRESSION: 1. Ultrasound marking of the abdomen performed by the ultrasound technologist sonographer for paracentesis. Dictated by: Alejandro Abrams M.D. on 04/19/2021 at 21:28 Approved by: Alejandro Abrams M.D. on 04/19/2021 at 21:31
[2021-04-19 20:33] LABS: Ethanol (ETOH) < 10 mg/dL
[2021-04-19 21:02] LABS: Procalcitonin 0.06 ng/mL (<0.5)
[2021-04-19 21:11] LABS: Ammonia (NH3) 19 umol/L (9-30)
[2021-04-19] MEDS: MORPHINE 2 MG/ML INJ IV (21:11)
[2021-04-19 23:38] VITALS: PULSE 79; O2SAT 98
--- NOTE | 2021-04-19 23:42 | PC.NURSE ---
Pt BP systolic mid to high 90s after procedure, provider aware. Baseline SBP in the 100-110. Pressure applied to site after, bandaid applied, then 4x4 with tape to help with oozing. NOC shift nurse aware to check dressing as last time pt did require a stitch to close site.
[2021-04-19 23:56] LABS: Body Fluid Tot Nucleated Cells 88 /uL
[2021-04-19 23:57] LABS: Body Fluid Appearance CLEAR; Body Fluid Clotted? NO CLOTS PRESENT; Body Fluid Color YELLOW; Body Fluid Red Blood Cells 153 /uL
[2021-04-20] VITALS: BP 105/56; PULSE 77; O2SAT 99
[2021-04-20 00:30] VITALS: BP 111/59; PULSE 77; O2SAT 99
[2021-04-20] MEDS: POTASSIUM CHLORIDE 10 MEQ TAB 40 MEQ PO (00:39)
[2021-04-20 00:51] VITALS: BP 126/61; PULSE 91; O2SAT 95
[2021-04-20 00:53] VITALS: O2SAT 97
[2021-04-20 01:01] LABS: Mononuclear WBC Body Fluid 98 %; Other Cells Body Fluid 1 %; Polynuclear WBC Body Fluid 2 %
== END 2021-04-20 01:22 | disposition home or self-care (01) ==
PROVIDERS: Emergency Medicine; Emergency Provider Emergency Medicine; PCP Family Medicine
DX: K70.31 Alcoholic cirrhosis of liver with ascites (principal); E87.6 Hypokalemia; R03.1 Nonspecific low blood-pressure reading
CPT/HCPCS: 49083; 76705; 80053; 80320; 82140; 83690; 84145; 85025; 85610; 85730; 89051; 93005; 96374; 99284; J2270

== ENCOUNTER 2021-04-21 09:29 | Emergency (ER) | payer MEDICARE, MEDICAID, SELFPAY ==
[2020-12-15 00:48] VITALS: BMI 22.7
[2021-04-21] VITALS (13 sets, daily range): BP systolic 85–107; BP diastolic 48–78; PULSE 82–89; RESP 16; TEMP 36.2; O2SAT 96–100
[2021-04-21] MEDS: LORazepam 0.5 MG TABLET 1 MG PO (10:00)
--- NOTE | 2021-04-21 11:17 | ED_ITS ---
HPI - Recheck/Abnormal Lab/Rx General Chief Complaint: Recheck/Abnormal Lab/Rx Stated Complaint: sent over BY DR Cody Time Seen by Provider: 04/21/21 09:30 Source: patient and other Mode of arrival: Wheelchair History of Present Illness HPI narrative: 70-year-old woman with end-stage alcoholic liver disease with ascites who was seen by her primary care physician today he was concerned that she was weak, cachectic and hypotensive and sent her to the emergency room for further evaluation. On arrival she feels that she is in her usual state of health and very clearly states that she understands she is dying. She is extraordinarily frustrated with all of the medical intervention, visits and being card around to have procedures done. She describes minimal appetite, no pain, worsening fatigue. She notes that her ascites has not significantly reaccumulated in is not causing any difficulty at this point. She is having both decreased urine and stool output. She describes no headaches. Related Data Allergies Allergy/AdvReac Type Severity Reaction Status Date / Time erythromycin base Allergy Unknown Gastrointestinal Verified 04/21/21 09:40 [ERYTHROMYCIN BASE] Upset Review of Systems Review of Systems Narrative: Remainder of complete review of systems is otherwise unremarkable except for that included in the HPI. Patient History Medical History Alcohol abuse, in remission Alcoholic cirrhosis of liver with ascites Chronic back pain History of ectopic History of ectopic Hypertension Insomnia Iron deficiency anemia due to chronic blood loss Surgical History History of cholecystectomy History of cholecystectomy No pertinent past surgical history Family History Grandmother Hypertension Mother Hyperthyroidism Sister Hyperthyroidism Social History household members: significant other Smoking Status: Former smoker alcohol intake: former Smoking Status: Former smoker alcohol intake frequency: 0-2 drinks per day Alcohol type: hard liquor Substance Use Type: marijuana Exam Initial Vital Signs Initial Vital Signs: Vital Signs Temperature 97.2 F L 04/21/21 09:34 Pulse Rate 82 04/21/21 09:34 Respiratory Rate 16 04/21/21 09:34 Blood Pressure 102/78 04/21/21 09:34 Pulse Oximetry 98 04/21/21 09:34 General: Frail and cachectic appearing but able to have a complete and coherent conversation HEENT: Drymucous membranes, normal sclera with reactive pupils, Neck: No JVD, supple Respiratory: Lungs are clear to auscultation, no wheezing no rales no rhonchi. Full and symmetrical air movement Cardiac: Regular rate and rhythm no murmurs no bruits Abdomen: Soft, minor ascites but nontender, good bowel tones, no flank pain Skin: Pale, very thin, dry, bruises for minor trauma in various stages of healing Neurologic: Globally weak Grossly neurologically intact with no obvious asymmetries or abnormalities Extremities: No trauma, no lower extremity edema Psych: Cooperative, appropriate insight and affect Course Orders Ordered: Discontinued Medications Sodium Chloride (Normal Saline 0.9%) 1,000 mls @ 1,000 mls/hr IV BOLUS ONE Stop: 04/21/21 10:29 Last Admin: 04/21/21 10:00 Dose: Not Given Documented by: MORA Lorazepam (Lorazepam 0.5 Mg Tablet) 1 mg PO NOW ONE Stop: 04/21/21 09:55 Last Admin: 04/21/21 10:00 Dose: 1 mg Documented by: MORA Vital Signs Vital signs: Vital Signs - 8 hr 04/21/21 09:34 Temperature 97.2 F L Pulse Rate 82 Respiratory Rate 16 Blood Pressure 102/78 Pulse Oximetry 98 MDM - Recheck/Abnormal Lab/Rx MDM Narrative Medical decision making narrative: 70-year-old woman with end-stage cirrhosis who is not interested in additional workup at this time. She was seen in the emergency department on April 19 with labs essentially unchanged from her baseline. Her primary care provider was worried about hypotension and in the emergency department she is essentially back to her baseline the 100 systolic range. She continues complain of no appetite. We had a long discussion about goals of care and consideration of a hospice referral. Explained that the goal of hospice is to help her live the best life possible and allow her to at home in comfort. There focus is not specifically in just dying. She and her were not aware of the complete goals for hospice and did seem quite interested. They do have hospice information at home and Flor would like to think about it. At this point we are going to do no additional workup in the emergency department when asked what might help the most she requested some chocolate milk. This was made available and she is discharged home. Discharge Plan Departure Patient Disposition: Home Clinical Impression: End stage liver disease, Ascites, Cachectic Activity Restrictions/Additional Instructions: Thank you for coming in today I am sorry that you are suffering so much as you get closer to the end of your life. I very much understand the frustration with multiple medical appointments and being carted around everywhere with little change to your baseline issues. At this time, you may find that switching your approach to your overall care to focus on living rather than medical interventions and dying may be what you are most interested in. Hospice specializes in this very thing. Will they do help at the very end of life with a are best at is making sure that you live your best life up to that point. Please consider giving them a call. They can have come out for a consult. There are no commitments required with a consult. In the meantime, I would encourage you to do anything and everything that feels the best for you at this time. You said you wanted a chocolate milkshake, [employer] [address] in has great ones! I would encourage you atop there on your way home. I wish you the very best Referrals: Kameron Cody MD [Primary Care Provider] -
== END 2021-04-21 12:05 | disposition home or self-care (01) ==
PROVIDERS: Emergency Provider Emergency Medicine; PCP Family Medicine
DX: K72.10 Chronic hepatic failure without coma (principal); R18.8 Other ascites; R64 Cachexia; Z87.891 Personal history of nicotine dependence
CPT/HCPCS: 99283